=== PATIENT | male | born 1960 | race American Indian/Alaskan Native ===

== ENCOUNTER 2016-06-04 13:05 | Outpatient (CLI) | payer MEDICARE ==
[2016-06-04 13:55] LABS: Blood Urea Nitrogen 15 mg/dL (9-20)
[2016-06-04] MEDS ORDERED: NACL ONE (14:44)
--- NOTE | 2016-06-04 15:12 | Cat Scan Report ---
CTA CHEST: History: Pulmonary embolism. Technique: Helical CT following IV contrast. Pulmonary embolus protocol. Sagittal and coronal reformatted images. Rotational MIP images. Findings: Contrast bolus is satisfactory. Extensive bilateral pulmonary emboli have nearly resolved since 03/21/16. There appears to be minimal residual thrombus remaining a third order branch leading to the anterior segment of the left lower lobe. Greater than 90% of the thrombus seen on the previous exam has resolved. The thyroid gland, tracheobronchial tree, esophagus, heart, pericardium, mediastinal vessels, lung luna and bony thorax are unremarkable. Impression: Near complete resolution of the bilateral pulmonary emboli since 03/21/16. There is minimal residual thrombus in a distal branch leading to the anterior segment of the left lower lobe. No new acute process.
== END 2016-06-04 13:06 | disposition home or self-care (01) ==
LOC: CT 13:05
PROVIDERS: ATTEND Specialist
DX: I26.09 Other pulmonary embolism with acute cor pulmonale (principal)
CPT/HCPCS: 36415; 71275; 82565; 84520; Q9967

== ENCOUNTER 2017-07-30 19:28 | Emergency (ER) | payer MEDICARE ==
[2017-07-30 19:44] VITALS: BP 139/93
== END 2017-07-30 20:07 | disposition left against medical advice (07) ==
LOC: ED 19:28
DX: K08.89 Other specified disorders of teeth and supporting structures (principal); Z53.21 Procedure and treatment not carried out due to patient leaving prior to being seen by health care provider

== ENCOUNTER 2018-06-01 01:50 | Inpatient (IN) | payer MEDICARE ==
[2018-06-01 03:36] LABS: Hematocrit 39.2 % (35.5-45.6); Hemoglobin 13.1 gm/dl (11.8-15.2); Mean Corpuscular HGB Conc 33 % (32-34); Mean Corpuscular Volume 106 fl (84-94); Platelet Count 231 K/mm3 (140-440); Red Blood Count 3.71 M/mm3 (3.65-5.03); Red Cell Distribution Width 14.1 % (13.2-15.2)
[2018-06-01 03:37] LABS: BUN/Creatinine Ratio 18; Blood Urea Nitrogen 16 mg/dL (9-20); Calcium 8.5 mg/dL (8.4-10.2); Hemolysis Index 5
--- NOTE | 2018-06-01 04:06 | Cat Scan Report ---
FINAL REPORT PROCEDURE: CT HEAD/BRAIN WO CON TECHNIQUE: Computerized tomography of the head was performed without contrast material. HISTORY: Lethargic COMPARISON: 03/21/2016 FINDINGS: Skull and scalp: Normal. Paranasal sinuses: Normal. Ventricles and subarachnoid spaces: Normal. Cerebrum: No evidence of hemorrhage, acute infarction or mass. There has been infarction in the right occipital lobe. This has not changed. Cerebellum and brainstem: No evidence of hemorrhage, acute infarction or mass. Vasculature: Normal. Comments: None. IMPRESSION: There is no evidence of an acute intracranial process. 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
--- NOTE | 2018-06-01 04:20 | XRay Report ---
FINAL REPORT PROCEDURE: XR CHEST ROUTINE 2V TECHNIQUE: PA and lateral chest radiographs were obtained. CPT 74484 HISTORY: lethargic c/o cough with EMS COMPARISON: 03/21/2016 FINDINGS: Heart: Normal. Mediastinum/Vessels: Normal. Lungs/Pleural space: Normal. Bony thorax: No acute osseous abnormality. Other: IMPRESSION: No evidence of an acute cardiopulmonary process.
[2018-06-01 04:33] LABS: INR 1.02 (0.87-1.13)
[2018-06-01 04:34] LABS: Partial Thromboplastin Time 21.7 Sec. (24.2-36.6)
--- NOTE | 2018-06-01 06:20 | Emergency Department Report ---
ED Altered Mental Status HPI - General Chief Complaint: Altered Mental Status Stated Complaint: COUGH Time Seen by Provider: 06/01/18 06:19 Source: patient, EMS Mode of arrival: Wheelchair Limitations: Physical Limitation - History of Present Illness Initial Comments: 7-year-old male was brought to this facility plating of cough. He was lethargic in triage. He had a Accu-Chek. He reported poor by mouth intake. He did not mention his acute as well as chronic cocaine abuse. However his mother did verify that when she arrives later. Did not really have any specific complaint. However he was lethargic and at times slightly somnolent. He was able to awaken and follow commands. He was oriented. I suspect patient has chronic lung disease. He does have a history of previous pulmonary embolism and stroke. Recent admission providers following information: Hospital course: 55 YO Male admitted for Chest pain, Bilateral Pulmonary embolus, and Acute Respiratory Failure. Pt treated with chest pain protocol, admitted to telemetry. serial cardiac enzymes, ekg, and stress test were unremarkable for acute ischemia. Pt started on therapeutic anticoagulation. Pt treated with supplemental oxygen, nebulizer therapy, and supportive care. Pt symptoms resolved with therapy and pt weaned off supplemental oxygen. PT hospital course complicated by slurred speech, pt treated IAW stroke protocol, and found to have acute stroke. Pt treated with anti platelet therapy, and statin therapy. Pt medically optimized. Pt evaluated prior to discharge but no significant new physical exam findings since admission. Pt discharged home and instructed to f/u pcp 1wk. 34 minutes dedicated to patient discharge and education. Pt counseled regarding medication compliance to reduce risk of stroke. Disposition: DISCHARGED TO HOME OR SELFCARE - Discharge Diagnoses (1) Bilateral pulmonary embolism Status: Acute (2) Acute respiratory failure with hypoxia Status: Acute (3) Angina at rest Status: Acute (4) Elevated troponin I level Status: Acute (5) Nicotine dependence Status: Acute (6) DVT prophylaxis Status: Acute - Related Data Home Medications Medication Instructions Recorded Confirmed Last Taken Cetirizine HCl 10 mg PO DAILY 01/29/18 01/29/18 Unknown Previous Rx's Medication Instructions Recorded Last Taken Type Apixaban [Eliquis] 5 mg PO BID #60 tablet 03/24/16 01/27/18 Rx Simvastatin (Nf) [Zocor TAB] 20 mg PO QHS #30 tablet 03/24/16 Unknown Rx Tamsulosin [Flomax] 0.4 mg PO QDAY #20 cap 04/03/16 Unknown Rx Allergies Allergy/AdvReac Type Severity Reaction Status Date / Time No Known Allergies Allergy Verified 01/06/14 14:00 ED Review of Systems ROS: Stated complaint: COUGH Other details as noted in HPI Constitutional: weakness. denies: chills, fever Eyes: denies: eye pain, eye discharge, vision change ENT: denies: ear pain, throat pain Respiratory: cough. denies: shortness of breath, wheezing Cardiovascular: denies: chest pain, palpitations Endocrine: no symptoms reported Gastrointestinal: denies: abdominal pain, nausea, diarrhea Genitourinary: denies: urgency, dysuria Musculoskeletal: denies: back pain, joint swelling, arthralgia Skin: denies: rash, lesions Neurological: denies: headache, weakness, paresthesias Psychiatric: denies: anxiety, depression Hematological/Lymphatic: denies: easy bleeding, easy bruising ED Past Medical Hx - Past Medical History Previous Medical History?: Yes Hx CVA: Yes (02/2016 L MCA on MRI, left side weak) Hx Diabetes: No Hx Pulmonary Embolism: Yes Hx Asthma: No Additional medical history: elevated cholesterol - Social History Smoking Status: Current Some Day Smoker - Medications Home Medications: Home Medications Medication Instructions Recorded Confirmed Last Taken Type Apixaban [Eliquis] 5 mg PO BID #60 tablet 03/24/16 01/29/18 01/27/18 Rx Simvastatin (Nf) [Zocor TAB] 20 mg PO QHS #30 tablet 03/24/16 01/29/18 Unknown Rx Tamsulosin [Flomax] 0.4 mg PO QDAY #20 cap 04/03/16 01/29/18 Unknown Rx Cetirizine HCl 10 mg PO DAILY 01/29/18 01/29/18 Unknown History ED Physical Exam - General Limitations: Altered Mental Status (lethargic) General appearance: in no apparent distress, lethargic - Head Head exam: Present: atraumatic, normocephalic - Eye Eye exam: Present: normal appearance. Absent: scleral icterus - ENT ENT exam: Present: mucous membranes moist - Neck Neck exam: Present: normal inspection. Absent: tenderness, meningismus - Respiratory Respiratory exam: Present: normal lung sounds bilaterally. Absent: respiratory distress - Cardiovascular Cardiovascular Exam: Present: regular rate, normal rhythm. Absent: systolic murmur, diastolic murmur, rubs, gallop - GI/Abdominal GI/Abdominal exam: Present: soft, normal bowel sounds. Absent: distended, tenderness, guarding, rebound, rigid - Rectal Rectal exam: Present: deferred - Extremities Exam Extremities exam: Present: normal inspection - Back Exam Back exam: Present: normal inspection - Neurological Exam Neurological exam: Present: alert, altered (lethargic but oriented), normal gait (patient is able to ambulate), motor sensory deficit (difficult to fully examine but the patient does not have obvious drift). Absent: CN II-XII intact (perhaps some slight facial asymmetry but no gross paresis) - Psychiatric Psychiatric exam: Present: normal mood, flat affect - Skin Skin exam: Present: warm, dry, intact, normal color. Absent: rash - Assessment Assessment Interval: Baseline - Level of Consciousness 1a. Level of Consciousness: alert/keenly responsive - LOC Questions 1b. LOC Questions: answers both correctly - LOC Command 1c. LOC Commands: performs tasks correctly - Best Gaze 2. Best Gaze: normal - Visual 3. Visual: no visual loss - Facial Palsy 4. Facial Palsy: normal symmetrical movement - Motor Arm 5b. Motor Arm Right: no drift 5a. Motor Arm Left: no drift - Motor Leg 6b. Motor Leg Right: no drift 6a. Motor Leg Left: no drift - Limb Ataxia 7. Limb Ataxia: absent - Sensory 8. Sensory: normal - Best Language 9. Best Language: no aphasia - Dysarthria 10. Dysarthria: normal - Extinction and Inattention 11. Extinction/Inattention: no abnormality - Scoring Total Score: 0 Stroke Severity: No Stroke Symptoms ED Course Vital Signs 06/01/18 06/01/18 06/01/18 01:59 02:50 03:35 Temperature 99.3 F 99.3 F Pulse Rate 79 79 86 Pulse Rate [ Anterior Bilateral Throughout] Respiratory 18 18 16 Rate Respiratory Rate [Anterior Bilateral Throughout] Blood Pressure 138/77 138/77 O2 Sat by Pulse 91 96 Oximetry 06/01/18 06/01/18 06/01/18 06:11 06:30 07:00 Temperature Pulse Rate 77 74 75 Pulse Rate [ Anterior Bilateral Throughout] Respiratory 8 L 16 15 Rate Respiratory Rate [Anterior Bilateral Throughout] Blood Pressure 128/77 134/75 135/81 O2 Sat by Pulse 93 96 Oximetry 06/01/18 06/01/18 10:15 10:25 Temperature Pulse Rate Pulse Rate [ 72 75 Anterior Bilateral Throughout] Respiratory Rate Respiratory 17 16 Rate [Anterior Bilateral Throughout] Blood Pressure O2 Sat by Pulse Oximetry - Reevaluation(s) Reevaluation #1: Have reexamined this patient several times. He is persistently lethargic. He did go to the bathroom without assistance. He stands up with his eyes closed. He can open his eyes. He is really too lethargic to go home. I discussed this with Dr. Brock. He will be treated for respiratory infection. His PO2 was in the 60s. He received a Neb improvement of his PO2. He will be given aspirin. I can't exclude fully a another cerebral event. He certainly could have a cocaine washout syndrome as well. He will have further workup by the hospital staff for his persistent lethargy. Do not think he needs a spinal tap or any acute additional imaging at this time. 06/01/18 11:57 - Lab Data Result diagrams: 06/01/18 03:08 06/01/18 03:08 Lab Results 06/01/18 06/01/18 06/01/18 Range/Units 02:53 03:08 03:08 WBC 4.1 L (4.5-11.0) K/mm3 RBC 3.71 (3.65-5.03) M/mm3 Hgb 13.1 (11.8-15.2) gm/dl Hct 39.2 (35.5-45.6) % MCV 106 H (84-94) fl MCH 35 H (28-32) pg MCHC 33 (32-34) % RDW 14.1 (13.2-15.2) % Plt Count 231 (140-440) K/mm3 PT (12.2-14.9) Sec. INR (0.87-1.13) APTT (24.2-36.6) Sec. D-Dimer (0-234) ng/mlDDU POC ABG pH (7.35-7.45) POC ABG pCO2 (35-45) POC ABG pO2 (80-105) POC ABG HCO3 POC ABG Total CO2 POC ABG O2 Sat POC ABG Base Excess FiO2 % Sodium 136 L (137-145) mmol/L Potassium 4.0 (3.6-5.0) mmol/L Chloride 100.5 (98-107) mmol/L Carbon Dioxide 26 (22-30) mmol/L Anion Gap 14 mmol/L BUN 16 (9-20) mg/dL Creatinine 0.9 (0.8-1.5) mg/dL Estimated GFR > 60 ml/min BUN/Creatinine Ratio 18 % Glucose 112 H (75-100) mg/dL POC Glucose 115 H (70-105) Calcium 8.5 (8.4-10.2) mg/dL Magnesium (1.7-2.3) mg/dL Total Bilirubin (0.1-1.2) mg/dL Direct Bilirubin (0-0.2) mg/dL Indirect Bilirubin mg/dL AST (5-40) units/L ALT (7-56) units/L Alkaline Phosphatase (35-129) units/L Ammonia (25-60) umol/L Total Creatine Kinase (55-170) units/L CK-MB (CK-2) (0.0-4.0) ng/mL CK-MB (CK-2) Rel Index (0-4) Troponin T (0.00-0.029) ng/mL NT-Pro-B Natriuret Pep (0-900) pg/mL Total Protein (6.3-8.2) g/dL Albumin (3.9-5) g/dL Albumin/Globulin Ratio % Urine Color (Yellow) Urine Turbidity (Clear) Urine pH (5.0-7.0) Ur Specific [place] (1.003-1.030) Urine Protein (Negative) mg/dL Urine Glucose (UA) (Negative) mg/dL Urine Ketones (Negative) mg/dL Urine Blood (Negative) Urine Nitrite (Negative) Urine Bilirubin (Negative) Urine Urobilinogen (<2.0) mg/dL Ur Leukocyte Esterase (Negative) Urine WBC (Auto) (0.0-6.0) /HPF Urine RBC (Auto) (0.0-6.0) /HPF Urine Opiates Screen Urine Methadone Screen Ur Barbiturates Screen Ur Phencyclidine Scrn Ur Amphetamines Screen U Benzodiazepines Scrn Urine Cocaine Screen U Marijuana (THC) Screen Drugs of Abuse Note 06/01/18 06/01/18 06/01/18 Range/Units 04:12 07:07 07:16 WBC (4.5-11.0) K/mm3 RBC (3.65-5.03) M/mm3 Hgb (11.8-15.2) gm/dl Hct (35.5-45.6) % MCV (84-94) fl MCH (28-32) pg MCHC (32-34) % RDW (13.2-15.2) % Plt Count (140-440) K/mm3 PT 13.8 14.0 (12.2-14.9) Sec. INR 1.02 1.04 (0.87-1.13) APTT 21.7 L 24.2 (24.2-36.6) Sec. D-Dimer (0-234) ng/mlDDU POC ABG pH (7.35-7.45) POC ABG pCO2 (35-45) POC ABG pO2 (80-105) POC ABG HCO3 POC ABG Total CO2 POC ABG O2 Sat POC ABG Base Excess FiO2 % Sodium (137-145) mmol/L Potassium (3.6-5.0) mmol/L Chloride (98-107) mmol/L Carbon Dioxide (22-30) mmol/L Anion Gap mmol/L BUN (9-20) mg/dL Creatinine (0.8-1.5) mg/dL Estimated GFR ml/min BUN/Creatinine Ratio % Glucose (75-100) mg/dL POC Glucose (70-105) Calcium (8.4-10.2) mg/dL Magnesium (1.7-2.3) mg/dL Total Bilirubin (0.1-1.2) mg/dL Direct Bilirubin (0-0.2) mg/dL Indirect Bilirubin mg/dL AST (5-40) units/L ALT (7-56) units/L Alkaline Phosphatase (35-129) units/L Ammonia 44.0 (25-60) umol/L Total Creatine Kinase (55-170) units/L CK-MB (CK-2) (0.0-4.0) ng/mL CK-MB (CK-2) Rel Index (0-4) Troponin T (0.00-0.029) ng/mL NT-Pro-B Natriuret Pep (0-900) pg/mL Total Protein (6.3-8.2) g/dL Albumin (3.9-5) g/dL Albumin/Globulin Ratio % Urine Color (Yellow) Urine Turbidity (Clear) Urine pH (5.0-7.0) Ur Specific [place] (1.003-1.030) Urine Protein (Negative) mg/dL Urine Glucose (UA) (Negative) mg/dL Urine Ketones (Negative) mg/dL Urine Blood (Negative) Urine Nitrite (Negative) Urine Bilirubin (Negative) Urine Urobilinogen (<2.0) mg/dL Ur Leukocyte Esterase (Negative) Urine WBC (Auto) (0.0-6.0) /HPF Urine RBC (Auto) (0.0-6.0) /HPF Urine Opiates Screen Urine Methadone Screen Ur Barbiturates Screen Ur Phencyclidine Scrn Ur Amphetamines Screen U Benzodiazepines Scrn Urine Cocaine Screen U Marijuana (THC) Screen Drugs of Abuse Note 06/01/18 06/01/18 06/01/18 Range/Units 07:16 07:16 07:18 WBC (4.5-11.0) K/mm3 RBC (3.65-5.03) M/mm3 Hgb (11.8-15.2) gm/dl Hct (35.5-45.6) % MCV (84-94) fl MCH (28-32) pg MCHC (32-34) % RDW (13.2-15.2) % Plt Count (140-440) K/mm3 PT (12.2-14.9) Sec. INR (0.87-1.13) APTT (24.2-36.6) Sec. D-Dimer 219.09 (0-234) ng/mlDDU POC ABG pH 7.399 (7.35-7.45) POC ABG pCO2 37.3 (35-45) POC ABG pO2 61 L (80-105) POC ABG HCO3 23.0 POC ABG Total CO2 24 POC ABG O2 Sat 91 POC ABG Base Excess -2 FiO2 21 % Sodium (137-145) mmol/L Potassium (3.6-5.0) mmol/L Chloride (98-107) mmol/L Carbon Dioxide (22-30) mmol/L Anion Gap mmol/L BUN (9-20) mg/dL Creatinine (0.8-1.5) mg/dL Estimated GFR ml/min BUN/Creatinine Ratio % Glucose (75-100) mg/dL POC Glucose (70-105) Calcium (8.4-10.2) mg/dL Magnesium 2.00 (1.7-2.3) mg/dL Total Bilirubin 1.10 (0.1-1.2) mg/dL Direct Bilirubin 0.2 (0-0.2) mg/dL Indirect Bilirubin 0.9 mg/dL AST 17 (5-40) units/L ALT 11 (7-56) units/L Alkaline Phosphatase 102 (35-129) units/L Ammonia (25-60) umol/L Total Creatine Kinase 195 H (55-170) units/L CK-MB (CK-2) 3.1 (0.0-4.0) ng/mL CK-MB (CK-2) Rel Index 1.5 (0-4) Troponin T < 0.010 (0.00-0.029) ng/mL NT-Pro-B Natriuret Pep 70.59 (0-900) pg/mL Total Protein 7.2 (6.3-8.2) g/dL Albumin 3.7 L (3.9-5) g/dL Albumin/Globulin Ratio 1.1 % Urine Color (Yellow) Urine Turbidity (Clear) Urine pH (5.0-7.0) Ur Specific [place] (1.003-1.030) Urine Protein (Negative) mg/dL Urine Glucose (UA) (Negative) mg/dL Urine Ketones (Negative) mg/dL Urine Blood (Negative) Urine Nitrite (Negative) Urine Bilirubin (Negative) Urine Urobilinogen (<2.0) mg/dL Ur Leukocyte Esterase (Negative) Urine WBC (Auto) (0.0-6.0) /HPF Urine RBC (Auto) (0.0-6.0) /HPF Urine Opiates Screen Urine Methadone Screen Ur Barbiturates Screen Ur Phencyclidine Scrn Ur Amphetamines Screen U Benzodiazepines Scrn Urine Cocaine Screen U Marijuana (THC) Screen Drugs of Abuse Note 06/01/18 06/01/18 Range/Units 07:36 07:36 WBC (4.5-11.0) K/mm3 RBC (3.65-5.03) M/mm3 Hgb (11.8-15.2) gm/dl Hct (35.5-45.6) % MCV (84-94) fl MCH (28-32) pg MCHC (32-34) % RDW (13.2-15.2) % Plt Count (140-440) K/mm3 PT (12.2-14.9) Sec. INR (0.87-1.13) APTT (24.2-36.6) Sec. D-Dimer (0-234) ng/mlDDU POC ABG pH (7.35-7.45) POC ABG pCO2 (35-45) POC ABG pO2 (80-105) POC ABG HCO3 POC ABG Total CO2 POC ABG O2 Sat POC ABG Base Excess FiO2 % Sodium (137-145) mmol/L Potassium (3.6-5.0) mmol/L Chloride (98-107) mmol/L Carbon Dioxide (22-30) mmol/L Anion Gap mmol/L BUN (9-20) mg/dL Creatinine (0.8-1.5) mg/dL Estimated GFR ml/min BUN/Creatinine Ratio % Glucose (75-100) mg/dL POC Glucose (70-105) Calcium (8.4-10.2) mg/dL Magnesium (1.7-2.3) mg/dL Total Bilirubin (0.1-1.2) mg/dL Direct Bilirubin (0-0.2) mg/dL Indirect Bilirubin mg/dL AST (5-40) units/L ALT (7-56) units/L Alkaline Phosphatase (35-129) units/L Ammonia (25-60) umol/L Total Creatine Kinase (55-170) units/L CK-MB (CK-2) (0.0-4.0) ng/mL CK-MB (CK-2) Rel Index (0-4) Troponin T (0.00-0.029) ng/mL NT-Pro-B Natriuret Pep (0-900) pg/mL Total Protein (6.3-8.2) g/dL Albumin (3.9-5) g/dL Albumin/Globulin Ratio % Urine Color Straw (Yellow) Urine Turbidity Clear (Clear) Urine pH 6.0 (5.0-7.0) Ur Specific [place] 1.005 (1.003-1.030) Urine Protein <15 mg/dl (Negative) mg/dL Urine Glucose (UA) Neg (Negative) mg/dL Urine Ketones Neg (Negative) mg/dL Urine Blood Neg (Negative) Urine Nitrite Neg (Negative) Urine Bilirubin Neg (Negative) Urine Urobilinogen 2.0 (<2.0) mg/dL Ur Leukocyte Esterase Neg (Negative) Urine WBC (Auto) 1.0 (0.0-6.0) /HPF Urine RBC (Auto) 1.0 (0.0-6.0) /HPF Urine Opiates Screen Presumptive negative Urine Methadone Screen Presumptive negative Ur Barbiturates Screen Presumptive negative Ur Phencyclidine Scrn Presumptive negative Ur Amphetamines Screen Presumptive negative U Benzodiazepines Scrn Presumptive negative Urine Cocaine Screen Presumptive positive U Marijuana (THC) Screen Presumptive negative Drugs of Abuse Note Disclamer Laboratory Results - last 24 hr 06/01/18 06/01/18 06/01/18 02:53 03:08 03:08 WBC 4.1 L RBC 3.71 Hgb 13.1 Hct 39.2 MCV 106 H MCH 35 H MCHC 33 RDW 14.1 Plt Count 231 PT INR APTT Sodium 136 L Potassium 4.0 Chloride 100.5 Carbon Dioxide 26 Anion Gap 14 BUN 16 Creatinine 0.9 Estimated GFR > 60 BUN/Creatinine Ratio 18 Glucose 112 H POC Glucose 115 H Calcium 8.5 06/01/18 04:12 WBC RBC Hgb Hct MCV MCH MCHC RDW Plt Count PT 13.8 INR 1.02 APTT 21.7 L Sodium Potassium Chloride Carbon Dioxide Anion Gap BUN Creatinine Estimated GFR BUN/Creatinine Ratio Glucose POC Glucose Calcium - Radiology Data Radiology results: report reviewed Critical care attestation.: If time is entered above; I have spent that time in minutes in the direct care of this critically ill patient, excluding procedure time. ED Disposition Clinical Impression: Acute respiratory infection, Cocaine abuse Altered mental status Qualifiers: Altered mental status type: somnolence Qualified Code(s): R40.0 - Somnolence Disposition: DC-09 OP ADMIT IP TO THIS HOSP Is pt being admited?: Yes Does the pt Need Aspirin: Yes Condition: Stable Referrals: SALONI STEWART MD [Primary Care Provider] - 3-5 Days Time of Disposition: 11:54
[2018-06-01] MEDS ORDERED: NACL 0.9% 1000 ML 1,000 ML IV ONE (06:48)
[2018-06-01 07:40] LABS: INR 1.04 (0.87-1.13)
[2018-06-01 07:41] LABS: Partial Thromboplastin Time 24.2 Sec. (24.2-36.6)
[2018-06-01 07:51] LABS: Creatine Kinase MB 3.1 ng/mL (0.0-4.0)
[2018-06-01 07:53] LABS: Alanine Aminotransferase 11 units/L (7-56); Albumin 3.7 g/dL (3.9-5); Bilirubin,Direct 0.2 mg/dL (0-0.2)
[2018-06-01 07:56] LABS: Bilirubin,Urine NEG (Negative); Blood,Urine NEG (Negative); Color,Urine Straw (Yellow); Protein,Urine <15 mg/dL mg/dL (Negative)
[2018-06-01 08:02] LABS: Amphetamine Screen,Urine PRESUMPTIVE NEGATIVE; Benzodiazepines Screen,Urine PRESUMPTIVE NEGATIVE; Cannabinoid Screen,Urine PRESUMPTIVE NEGATIVE; Methadone Screen,Urine PRESUMPTIVE NEGATIVE; Opiate Screen,Urine PRESUMPTIVE NEGATIVE
[2018-06-01 08:14] LABS: Cocaine Screen,Urine PRESUMPTIVE POSITIVE
[2018-06-01] MEDS ORDERED: DUONEB *Not for PRN Use IH ONE ×2 (10:05→10:19)
[2018-06-01] MEDS ORDERED: LEVAQUIN 750MG/150ML 750 MG/150 ML BAG IV ONE ×2 (11:58→13:05)
[2018-06-01] MEDS ORDERED: ASPIRIN PO ONE (11:59)
[2018-06-01] MEDS ORDERED: ASPIRIN ONE (13:05)
[2018-06-01] MEDS ORDERED: TYLENOL PO PRN (15:06)
[2018-06-01] MEDS: ROBITUSSIN PO PRN (22:55)
--- NOTE | 2018-06-02 01:27 | Event Note ---
Date: 06/01/18 See H/p in reports AMS Cocaine use
[2018-06-02] MEDS ORDERED: ATIVAN IV PRN ×3 (01:36)
[2018-06-02] MEDS ORDERED: DUONEB *Not for PRN Use IH (01:37)
--- NOTE | 2018-06-02 01:52 | History and Physical Report ---
CHIEF COMPLAINT: 1. Cough. 2. Altered sensorium. HISTORY OF PRESENT ILLNESS: A 57-year-old -[place] male with history of cerebrovascular accident with some residual left-sided weakness, diabetes, pulmonary embolism and hyperlipidemia, comes in for cough productive of mucoid sputum and low grade fever, also altered sensorium. The patient has been using cocaine on a regular basis. No shortness of breath. No chest pain. The patient was recently admitted for bilateral pulmonary embolism and acute respiratory failure, was the discharged in 10/2016. PAST MEDICAL HISTORY: As mentioned, significant for cerebrovascular accident and some slight left-sided weakness, pulmonary embolism, and hyperlipidemia and BPH also. SOCIAL HISTORY: Smokes half a pack to a pack a day. SURGICAL HISTORY: Not available. FAMILY HISTORY: Hypertension. REVIEW OF SYSTEMS: Significant for cough and lethargy. PHYSICAL EXAMINATION: GENERAL: Elderly male, cooperative during examination. VITAL SIGNS: Temperature is 98.0, pulse is 71, respirations are 18, sats are 94%, blood pressure 133/80. HEENT: Unremarkable. Pupils equal and reactive. NECK: Supple, no lymphadenopathy, no thyromegaly. LUNGS: Scattered rhonchi bilaterally. CARDIOVASCULAR: S1, S2 heard. No gallop, no murmur, no rub. Apical impulse in left fifth intercostal space and midclavicular line. ABDOMEN: Soft and benign. No hepatosplenomegaly, no guarding, no rigidity. Hernial orifices are normal. EXTREMITIES: Good pedal pulses. No pedal edema. CENTRAL NERVOUS SYSTEM: Normal. Slight left residual weakness present. LABORATORY DATA: White count is 4100, hemoglobin 13.1 and hematocrit is 39.2, platelet count is 231,000. ABG significant for pH of 7.399, pCO2 of 37.3, pO2 of 61, borderline just above normal. Bicarbonate is 23 and O2 sats 91%. Electrolytes 136. BUN and creatinine are normal. Glucose is 112, slightly high. LFTs are normal. CK is 195, total albumin is 3.7. Drug screen is positive for cocaine. Also chest x-ray, no evidence of acute cardiopulmonary process. Head CT, no evidence of acute intracranial process. Chronic right occipital infarct. EKG shows sinus rhythm, heart rate of 80 per minute. ASSESSMENT AND PLAN: 1. Altered mental status, transient encephalopathy. IV fluids for now. 2. Cocaine use. CIWA protocol initiated. 3. Chronic obstructive pulmonary disease. Continue DuoNeb. 4. Acute bronchitis. IV antibiotics. 5. Deep venous thrombosis prophylaxis, Lovenox 40 mg subcutaneous daily. 6. Hyperlipidemia. Continue Zocor. 7. Benign prostatic hypertrophy. Continue Flomax 0.4 daily. In summary, the patient has mild encephalopathy, which is nearly resolved. Acute bronchitis. Residual cerebrovascular accident and chronic obstructive pulmonary disease and benign prostatic hypertrophy. JOB# [id number] VSM/NTS
[2018-06-02] MEDS ORDERED: PROVENTIL IH PRN (02:13)
[2018-06-02] MEDS ORDERED: DUONEB *Not for PRN Use IH SCH (09:45)
--- NOTE | 2018-06-02 09:49 | Progress Note ---
Assessment and Plan Assessment and plan: 57-year-old man with history of CVA with residual left-sided weakness, diabetes, history of PE in 2016, hyperlipidemia, ongoing cocaine abuse. He presented to the hospital with productive cough and low-grade fever Hospital course/plan CXR was neg, CT showed only old cva, no acute findings Patient was apparently lethargic on presentation, now resolved He has been counseled on cocaine and tobacco cessation Continue IV antibiotics, nebs and steroids. Optimize chronic medications Diagnoses Acute toxic encephalopathy Cocaine abuse tobacco abuse and dependence COPD Acute bronchitis Hyperlipidemia BPH History Interval history: Review of systems Constitutional: No fevers, no malaise, no joint pains CVS: No chest pain, no orthopnea, no dyspnea on exertion, no pedal edema GI: No abdominal pain, no diarrhea, no vomiting, no constipation Respiratory: Complaining of cough with mucoid sputum Hospitalist Physical - Physical exam Narrative exam: General.: Appears well, no distress, nontoxic HEENT: Moist mucous membranes, extraocular muscles intact, no lymphadenopathy Neck: supple Cardiac: S1-S2 heard Lungs: Rhonchorous breath sounds Abdomen soft nontender nondistended Extremities: no edema clubbing or cyanosis Skin: no rash or lesions Neurologic: no gross focal deficits Psych: calm, and cooperative - Constitutional Vitals: Temp Pulse Resp BP Pulse Ox 98.7 F 63 20 133/84 95 06/02/18 05:36 06/02/18 05:36 06/02/18 05:36 06/02/18 05:36 06/02/18 05:36 Results - Labs CBC & Chem 7: 06/01/18 03:08 06/01/18 03:08 Labs: Laboratory Last Values WBC 4.1 K/mm3 (4.5-11.0) L 06/01/18 03:08 RBC 3.71 M/mm3 (3.65-5.03) 06/01/18 03:08 Hgb 13.1 gm/dl (11.8-15.2) 06/01/18 03:08 Hct 39.2 % (35.5-45.6) 06/01/18 03:08 MCV 106 fl (84-94) H 06/01/18 03:08 MCH 35 pg (28-32) H 06/01/18 03:08 MCHC 33 % (32-34) 06/01/18 03:08 RDW 14.1 % (13.2-15.2) 06/01/18 03:08 Plt Count 231 K/mm3 (140-440) 06/01/18 03:08 PT 14.0 Sec. (12.2-14.9) 06/01/18 07:16 INR 1.04 (0.87-1.13) 06/01/18 07:16 APTT 24.2 Sec. (24.2-36.6) 06/01/18 07:16 D-Dimer 219.09 ng/mlDDU (0-234) 06/01/18 07:16 POC ABG pH 7.399 (7.35-7.45) 06/01/18 07:18 POC ABG pCO2 37.3 (35-45) 06/01/18 07:18 POC ABG pO2 61 (80-105) L 06/01/18 07:18 POC ABG HCO3 23.0 06/01/18 07:18 POC ABG Total CO2 24 06/01/18 07:18 POC ABG O2 Sat 91 06/01/18 07:18 POC ABG Base Excess -2 06/01/18 07:18 FiO2 21 % 06/01/18 07:18 Sodium 136 mmol/L (137-145) L 06/01/18 03:08 Potassium 4.0 mmol/L (3.6-5.0) 06/01/18 03:08 Chloride 100.5 mmol/L (98-107) 06/01/18 03:08 Carbon Dioxide 26 mmol/L (22-30) 06/01/18 03:08 Anion Gap 14 mmol/L 06/01/18 03:08 BUN 16 mg/dL (9-20) 06/01/18 03:08 Creatinine 0.9 mg/dL (0.8-1.5) 06/01/18 03:08 Estimated GFR > 60 ml/min 06/01/18 03:08 BUN/Creatinine Ratio 18 % 06/01/18 03:08 Glucose 112 mg/dL (75-100) H 06/01/18 03:08 POC Glucose 115 (70-105) H 06/01/18 02:53 Calcium 8.5 mg/dL (8.4-10.2) 06/01/18 03:08 Magnesium 2.00 mg/dL (1.7-2.3) 06/01/18 07:16 Total Bilirubin 1.10 mg/dL (0.1-1.2) 06/01/18 07:16 Direct Bilirubin 0.2 mg/dL (0-0.2) 06/01/18 07:16 Indirect Bilirubin 0.9 mg/dL 06/01/18 07:16 AST 17 units/L (5-40) 06/01/18 07:16 ALT 11 units/L (7-56) 06/01/18 07:16 Alkaline Phosphatase 102 units/L (35-129) 06/01/18 07:16 Ammonia 44.0 umol/L (25-60) 06/01/18 07:07 Total Creatine Kinase 195 units/L (55-170) H 06/01/18 07:16 CK-MB (CK-2) 3.1 ng/mL (0.0-4.0) 06/01/18 07:16 CK-MB (CK-2) Rel Index 1.5 (0-4) 06/01/18 07:16 Troponin T < 0.010 ng/mL (0.00-0.029) 06/01/18 07:16 NT-Pro-B Natriuret Pep 70.59 pg/mL (0-900) 06/01/18 07:16 Total Protein 7.2 g/dL (6.3-8.2) 06/01/18 07:16 Albumin 3.7 g/dL (3.9-5) L 06/01/18 07:16 Albumin/Globulin Ratio 1.1 % 06/01/18 07:16 Urine Color Straw (Yellow) 06/01/18 07:36 Urine Turbidity Clear (Clear) 06/01/18 07:36 Urine pH 6.0 (5.0-7.0) 06/01/18 07:36 Ur Specific [place] 1.005 (1.003-1.030) 06/01/18 07:36 Urine Protein <15 mg/dl mg/dL (Negative) 06/01/18 07:36 Urine Glucose (UA) Neg mg/dL (Negative) 06/01/18 07:36 Urine Ketones Neg mg/dL (Negative) 06/01/18 07:36 Urine Blood Neg (Negative) 06/01/18 07:36 Urine Nitrite Neg (Negative) 06/01/18 07:36 Urine Bilirubin Neg (Negative) 06/01/18 07:36 Urine Urobilinogen 2.0 mg/dL (<2.0) 06/01/18 07:36 Ur Leukocyte Esterase Neg (Negative) 06/01/18 07:36 Urine WBC (Auto) 1.0 /HPF (0.0-6.0) 06/01/18 07:36 Urine RBC (Auto) 1.0 /HPF (0.0-6.0) 06/01/18 07:36 Urine Opiates Screen Presumptive negative 06/01/18 07:36 Urine Methadone Screen Presumptive negative 06/01/18 07:36 Ur Barbiturates Screen Presumptive negative 06/01/18 07:36 Ur Phencyclidine Scrn Presumptive negative 06/01/18 07:36 Ur Amphetamines Screen Presumptive negative 06/01/18 07:36 U Benzodiazepines Scrn Presumptive negative 06/01/18 07:36 Urine Cocaine Screen Presumptive positive 06/01/18 07:36 U Marijuana (THC) Screen Presumptive negative 06/01/18 07:36 Drugs of Abuse Note Disclamer 06/01/18 07:36
[2018-06-02] MEDS: NACL 0.9% 1000 ML 1,000 ML IV SCH (10:11)
[2018-06-02] MEDS: LEVAQUIN 750MG/150ML 750 MG/150 ML BAG IV SCH (10:12)
[2018-06-02] MEDS: FLOMAX PO SCH (10:29)
[2018-06-02] MEDS: SOLU-Medrol IV SCH ×3 (10:33→21:50)
[2018-06-02] MEDS: TESSALON PERLES PO SCH ×2 (15:44→21:49)
[2018-06-02] MEDS: ROBITUSSIN PO PRN (21:50)
[2018-06-03] MEDS: NACL 0.9% 1000 ML 1,000 ML IV SCH (02:18)
[2018-06-03] MEDS: SOLU-Medrol IV SCH (05:12)
[2018-06-03] MEDS: TESSALON PERLES PO SCH ×2 (05:12→15:52)
[2018-06-03 06:07] VITALS: BP 141/79
--- NOTE | 2018-06-03 10:56 | Discharge Summary ---
Providers - Providers Date of Admission: 06/01/18 11:59 Attending physician: LAVERN CEE MD Primary care physician: SALONI STEWART Hospitalization Condition: Stable Hospital course: 57-year-old man with history of CVA with residual left-sided weakness, diabetes, history of PE in 2016, hyperlipidemia, ongoing cocaine abuse. He presented to the hospital with productive cough and low-grade fever. Chest imaging was negative for pneumonia. The patient was diagnosed with acute bronchitis, pneumonitis. He probably has some toxicity from cocaine inhalation and tobacco smoking. The patient had ongoing tobacco use and went on a 3 day cocaine binge prior to admission to the hospital. He received steroids and nebulizers and cough medicines. He clinically improves and is being discharged on a steroid taper as well as an inhaler. He has been counseled on abstinence of cocaine and tobacco. He was offered nicotine patch but refused. Diagnoses Acute toxic encephalopathy Pneumonitis due to inhaled crack cocaine toxicity Cocaine abuse tobacco abuse and dependence COPD Acute bronchitis Hyperlipidemia BPH Disposition: DC- TO HOME OR SELFCARE Time spent for discharge: 33 minutes Core Measure Documentation - Palliative Care Palliative Care/ Comfort Measures: Not Applicable - Core Measures Any of the following diagnoses?: none Exam - Constitutional Vitals: Temp Pulse Resp BP Pulse Ox 97.6 F 56 L 20 141/79 95 06/03/18 06:05 06/03/18 06:05 06/03/18 06:05 06/03/18 06:05 06/03/18 06:05 General appearance: Present: no acute distress, well-nourished - EENT Eyes: Present: PERRL ENT: hearing intact, clear oral mucosa - Neck Neck: Present: supple, normal ROM - Respiratory Respiratory effort: normal Respiratory: bilateral: CTA - Cardiovascular Heart Sounds: Present: S1 & S2. Absent: rub, click - Extremities Extremities: pulses symmetrical, No edema Peripheral Pulses: within normal limits - Abdominal General gastrointestinal: Present: soft, non-tender, non-distended, normal bowel sounds Male genitourinary: Present: normal - Integumentary Integumentary: Present: clear, warm, dry - Musculoskeletal Musculoskeletal: gait normal, strength equal bilaterally - Psychiatric Psychiatric: appropriate mood/affect, intact judgment & insight - Neurologic Neurologic: CNII-XII intact, moves all extremities Plan Follow up with: SALONI STEWART MD [Primary Care Provider] - 3-5 Days Prescriptions: ALBUTEROL Inhaler(NF) [VENTOLIN Inhaler(NF)] 1 puff IH Q4H PRN #1 inha PRN Reason: Shortness Of Breath Benzonatate [Tessalon Perles] 100 mg PO Q8HR #30 capsule guaiFENesin [Robitussin] 200 mg PO Q6H PRN #120 ml PRN Reason: Cough Prednisone [predniSONE 5 mg (6-Day Pack, 21 Tabs)] 5 mg PO .TAPER #1 tab.ds.pk Tamsulosin [Flomax] 0.4 mg PO QDAY #30 capsule
[2018-06-03] MEDS: FLOMAX PO SCH (10:57)
[2018-06-03] MEDS: LEVAQUIN 750MG/150ML 750 MG/150 ML BAG IV SCH (10:58)
== END 2018-06-03 16:59 | disposition home or self-care (01) | DRG 205 ==
LOC: ED 01:50 → 3A 11:59
PROVIDERS: ADMIT Internal Medicine; ATTEND Internal Medicine
PROC: 4A033R1 Measurement of Arterial Saturation, Peripheral, Percutaneous Approach (ICD-10-PCS; principal; 2018-06-01)
DX: J70.4 Drug-induced interstitial lung disorders, unspecified (principal); G92 Toxic encephalopathy; I69.354 Hemiplegia and hemiparesis following cerebral infarction affecting left non-dominant side; J44.0 Chronic obstructive pulmonary disease with (acute) lower respiratory infection; F14.10 Cocaine abuse, uncomplicated; J20.9 Acute bronchitis, unspecified; T40.5X5A Adverse effect of cocaine, initial encounter; E78.5 Hyperlipidemia, unspecified; F17.210 Nicotine dependence, cigarettes, uncomplicated; N40.0 Benign prostatic hyperplasia without lower urinary tract symptoms; E11.9 Type 2 diabetes mellitus without complications; Z86.711 Personal history of pulmonary embolism; Z79.01 Long term (current) use of anticoagulants; Z82.49 Family history of ischemic heart disease and other diseases of the circulatory system; Z71.6 Tobacco abuse counseling; Z79.84 Long term (current) use of oral hypoglycemic drugs; Z71.51 Drug abuse counseling and surveillance of drug abuser; Y92.098 Other place in other non-institutional residence as the place of occurrence of the external cause
CPT/HCPCS: 36415; 70450; 71046; 80048; 80076; 80307; 81001; 82140; 82550; 82553; 82803; 82962; 83735; 83880; 84484; 85027; 85379; 85610; 85730; 93005; 93010; 94640; 96361; 96365; 99406; G0378; A9270-GY; J1956; J2920; J7030

== ENCOUNTER 2018-09-30 22:26 | Inpatient (IN) | payer MEDICARE ==
[2018-09-30 23:09] LABS: Hematocrit 41.3 % (35.5-45.6); Hemoglobin 14.3 gm/dl (11.8-15.2); Mean Corpuscular HGB Conc 35 % (32-34); Mean Corpuscular Volume 106 fl (84-94); Platelet Count 248 K/mm3 (140-440); Red Cell Distribution Width 14.6 % (13.2-15.2)
[2018-09-30 23:25] LABS: Calcium 8.9 mg/dL (8.4-10.2); Hemolysis Index 14; INR 1.02 (0.87-1.13)
[2018-09-30 23:26] LABS: Partial Thromboplastin Time 28.1 Sec. (24.2-36.6)
[2018-10-01] MEDS ORDERED: LASIX IV ONE (00:02)
[2018-10-01] MEDS ORDERED: PROVENTIL IH ONE (00:02)
--- NOTE | 2018-10-01 00:03 | Emergency Department Report ---
ED General Adult HPI - General Chief complaint: Weakness Stated complaint: WEAKNESS Time Seen by Provider: 09/30/18 23:45 Source: patient, EMS (ems notes not available at time of chart dictation), RN notes reviewed, old records reviewed Mode of arrival: Wheelchair Limitations: Physical Limitation - History of Present Illness Initial comments: This is a 58-year-old gentleman. The patient is not known to this provider previously. His past medical history includes stroke, residual left-sided weakness, pulmonary embolism, intermittently compliant with anticoagulation, eliquis, and presumed COPD. His primary care doctor is DR Llamas The patient presents to the emergency room with 2 complaints. His first complaint is worsening left-sided weakness. This is present over the past 4 days. It is painless. It is constant. It does not radiate anywhere. There is no headache, neck pain, chest pain, abdominal pain, loss of vision. His next complaint is shortness of breath. It is worse over the past 4 days. Positive dry cough, positive lower extremity edema. Positive for poor compliance with systemic anticoagulation. He is making dry mucous. -: Gradual, days(s) Location: left, upper extremity, lower extremity Radiation: non-radiation Consistency: constant Improves with: none Worsens with: none - Related Data Previous Rx's Medication Instructions Recorded Last Taken Type ALBUTEROL Inhaler(NF) [VENTOLIN 1 puff IH Q4H PRN #1 inha 06/03/18 Unknown Rx Inhaler(NF)] Benzonatate [Tessalon Perles] 100 mg PO Q8HR #30 capsule 06/03/18 Unknown Rx Prednisone [predniSONE 5 mg (6-Day 5 mg PO .TAPER #1 tab.ds.pk 06/03/18 Unknown Rx Pack, 21 Tabs)] Tamsulosin [Flomax] 0.4 mg PO QDAY #30 capsule 06/03/18 Unknown Rx guaiFENesin [Robitussin] 200 mg PO Q6H PRN #120 ml 06/03/18 Unknown Rx Allergies Allergy/AdvReac Type Severity Reaction Status Date / Time No Known Allergies Allergy Verified 01/06/14 14:00 ED Review of Systems ROS: Stated complaint: WEAKNESS Other details as noted in HPI Constitutional: malaise, weakness Eyes: denies: eye discharge ENT: congestion Respiratory: cough, shortness of breath, SOB with exertion, SOB at rest Cardiovascular: edema. denies: chest pain Gastrointestinal: denies: abdominal pain, nausea, vomiting, diarrhea Genitourinary: denies: dysuria Musculoskeletal: arthralgia, myalgia Skin: denies: lesions Neurological: weakness, numbness. denies: headache ED Past Medical Hx - Past Medical History Previous Medical History?: Yes Hx Hypertension: Yes Hx CVA: Yes (02/2016 L MCA on MRI, left side weak) Hx Congestive Heart Failure: Yes Hx Diabetes: No Hx Pulmonary Embolism: Yes (CURRENTLY ON ELIQUIS) Hx Asthma: No Hx COPD: Yes (pt reports that he "thinks" he has COPD) Additional medical history: elevated cholesterol - Surgical History Past Surgical History?: No - Social History Smoking Status: Never Smoker Substance Use Type: None - Medications Home Medications: Home Medications Medication Instructions Recorded Confirmed Last Taken Type ALBUTEROL Inhaler(NF) [VENTOLIN 1 puff IH Q4H PRN #1 inha 06/03/18 10/01/18 Unknown Rx Inhaler(NF)] Benzonatate [Tessalon Perles] 100 mg PO Q8HR #30 capsule 06/03/18 10/01/18 Unknown Rx Prednisone [predniSONE 5 mg (6-Day 5 mg PO .TAPER #1 tab.ds.pk 06/03/18 10/01/18 Unknown Rx Pack, 21 Tabs)] Tamsulosin [Flomax] 0.4 mg PO QDAY #30 capsule 06/03/18 10/01/18 Unknown Rx guaiFENesin [Robitussin] 200 mg PO Q6H PRN #120 ml 06/03/18 10/01/18 Unknown Rx ED Physical Exam - General Limitations: Physical Limitation General appearance: alert, in no apparent distress - Head Head exam: Present: atraumatic, normocephalic - Eye Eye exam: Present: normal appearance, EOMI. Absent: nystagmus - ENT ENT exam: Present: normal exam, normal orophraynx, mucous membranes moist, n ormal external ear exam - Neck Neck exam: Present: normal inspection, full ROM. Absent: tenderness, meningismus - Respiratory Respiratory exam: Present: rhonchi. Absent: respiratory distress, wheezes, rales, chest wall tenderness, accessory muscle use, prolonged expiratory - Cardiovascular Cardiovascular Exam: Present: regular rate, normal rhythm, normal heart sounds. Absent: bradycardia, tachycardia, irregular rhythm, systolic murmur, diastolic murmur, rubs, gallop - GI/Abdominal GI/Abdominal exam: Present: soft. Absent: distended, tenderness, guarding, rebound, rigid, pulsatile mass - Rectal Rectal exam: Present: deferred - Extremities Exam Extremities exam: Present: normal inspection, full ROM, pedal edema, other (2+ pulses noted in the bilateral upper, lower extremities. Compartments soft. No long bony tenderness. The pelvis is stable.). Absent: calf tenderness - Back Exam Back exam: Present: normal inspection, full ROM. Absent: tenderness, CVA tenderness (R), CVA tenderness (L), paraspinal tenderness, vertebral tenderness - Neurological Exam Neurological exam: Present: alert, oriented X3 - Psychiatric Psychiatric exam: Present: normal affect, normal mood - Skin Skin exam: Present: warm, dry, intact, normal color. Absent: rash ED Course Vital Signs 09/30/18 09/30/18 09/30/18 22:33 23:38 23:45 Temperature 97.9 F Pulse Rate 79 93 H Pulse Rate [ Bilateral] Respiratory 18 20 Rate Respiratory Rate [Bilateral ] Blood Pressure 139/90 151/91 O2 Sat by Pulse 98 97 96 Oximetry 09/30/18 10/01/18 10/01/18 23:49 00:10 00:30 Temperature 97.7 F Pulse Rate Pulse Rate [ 75 85 Bilateral] Respiratory Rate Respiratory 20 20 Rate [Bilateral ] Blood Pressure O2 Sat by Pulse Oximetry 10/01/18 10/01/18 10/01/18 01:19 01:45 02:15 Temperature Pulse Rate 110 H 102 H 95 H Pulse Rate [ Bilateral] Respiratory 17 14 Rate Respiratory Rate [Bilateral ] Blood Pressure 126/69 117/58 126/58 O2 Sat by Pulse 96 91 92 Oximetry 10/01/18 10/01/18 10/01/18 02:45 04:01 04:21 Temperature Pulse Rate 94 H 76 83 Pulse Rate [ Bilateral] Respiratory 30 H 17 13 Rate Respiratory Rate [Bilateral ] Blood Pressure 113/67 115/62 103/73 O2 Sat by Pulse 91 92 92 Oximetry ED Medical Decision Making - Lab Data Result diagrams: 09/30/18 22:54 10/01/18 18:30 Vital Signs 09/30/18 09/30/18 09/30/18 22:33 23:38 23:45 Temperature 97.9 F Pulse Rate 79 93 H Pulse Rate [ Bilateral] Respiratory 18 20 Rate Respiratory Rate [Bilateral ] Blood Pressure 139/90 151/91 O2 Sat by Pulse 98 97 96 Oximetry 09/30/18 10/01/18 10/01/18 23:49 00:10 00:30 Temperature 97.7 F Pulse Rate Pulse Rate [ 75 85 Bilateral] Respiratory Rate Respiratory 20 20 Rate [Bilateral ] Blood Pressure O2 Sat by Pulse Oximetry 10/01/18 01:19 Temperature Pulse Rate 110 H Pulse Rate [ Bilateral] Respiratory Rate Respiratory Rate [Bilateral ] Blood Pressure 126/69 O2 Sat by Pulse 96 Oximetry Lab Results 09/30/18 09/30/18 09/30/18 Range/Units 22:54 22:54 22:54 WBC 2.5 L (4.5-11.0) K/mm3 RBC 3.90 (3.65-5.03) M/mm3 Hgb 14.3 (11.8-15.2) gm/dl Hct 41.3 (35.5-45.6) % MCV 106 H (84-94) fl MCH 37 H (28-32) pg MCHC 35 H (32-34) % RDW 14.6 (13.2-15.2) % Plt Count 248 (140-440) K/mm3 [place] % (Auto) Spinning Frame Changer Add Manual Diff Complete Total Counted 100 Seg Neuts % (Manual) 39.0 L (40.0-70.0) % Band Neutrophils % 0 % Lymphocytes % (Manual) 44.0 H (13.4-35.0) % Reactive Lymphs % (Man) 0 % Monocytes % (Manual) 14.0 H (0.0-7.3) % Eosinophils % (Manual) 2.0 (0.0-4.3) % Basophils % (Manual) 1.0 (0.0-1.8) % Metamyelocytes % 0 % Myelocytes % 0 % Promyelocytes % 0 % Blast Cells % 0 % Nucleated RBC % Not Reportable Seg Neutrophils # Man 1.0 L (1.8-7.7) K/mm3 Band Neutrophils # 0.0 K/mm3 Lymphocytes # (Manual) 1.1 L (1.2-5.4) K/mm3 Abs React Lymphs (Man) 0.0 K/mm3 Monocytes # (Manual) 0.4 (0.0-0.8) K/mm3 Eosinophils # (Manual) 0.1 (0.0-0.4) K/mm3 Basophils # (Manual) 0.0 (0.0-0.1) K/mm3 Metamyelocytes # 0.0 K/mm3 Myelocytes # 0.0 K/mm3 Promyelocytes # 0.0 K/mm3 Blast Cells # 0.0 K/mm3 WBC Morphology Not Reportable Hypersegmented Neuts Not Reportable Hyposegmented Neuts Not Reportable Hypogranular Neuts Not Reportable Smudge Cells Not Reportable Toxic Granulation Not Reportable Toxic Vacuolation Not Reportable Dohle Bodies Not Reportable Pelger-Huet Anomaly Not Reportable [place] Not Reportable Platelet Estimate Not Reportable Clumped Platelets Not Reportable Plt Clumps, EDTA Not Reportable Large Platelets Not Reportable Giant Platelets Not Reportable Platelet Satelliting Not Reportable Plt Morphology Comment Not Reportable RBC Morphology Normal Dimorphic RBCs Not Reportable Polychromasia Not Reportable Hypochromasia Not Reportable Poikilocytosis Not Reportable Anisocytosis Not Reportable Microcytosis Not Reportable Macrocytosis Not Reportable Spherocytes Not Reportable Pappenheimer Bodies Not Reportable Sickle Cells Not Reportable Target Cells Not Reportable Tear Drop Cells Not Reportable Ovalocytes Not Reportable Helmet Cells Not Reportable [place] Bodies Not Reportable [place] Rings Not Reportable [place] Cells Not Reportable Bite Cells Not Reportable Crenated Cell Not Reportable Elliptocytes Not Reportable Acanthocytes (Spur) Not Reportable Rouleaux Not Reportable Hemoglobin C Crystals Not Reportable Schistocytes Not Reportable Malaria parasites Not Reportable Chidi Bodies Not Reportable Hem Pathologist Commnt No PT 14.0 (12.2-14.9) Sec. INR 1.02 (0.87-1.13) APTT 28.1 (24.2-36.6) Sec. Thrombin Time (15.1-19.6) Sec. Sodium 138 (137-145) mmol/L Potassium 3.7 (3.6-5.0) mmol/L Chloride 103.4 (98-107) mmol/L Carbon Dioxide 25 (22-30) mmol/L Anion Gap 13 mmol/L BUN 9 (9-20) mg/dL Creatinine 0.8 (0.8-1.5) mg/dL Estimated GFR > 60 ml/min BUN/Creatinine Ratio 11 % Glucose 94 (75-100) mg/dL Calcium 8.9 (8.4-10.2) mg/dL Magnesium (1.7-2.3) mg/dL Total Bilirubin (0.1-1.2) mg/dL Direct Bilirubin (0-0.2) mg/dL Indirect Bilirubin mg/dL AST (5-40) units/L ALT (7-56) units/L Alkaline Phosphatase (35-129) units/L Total Creatine Kinase (55-170) units/L Troponin T < 0.010 (0.00-0.029) ng/mL NT-Pro-B Natriuret Pep (0-900) pg/mL Total Protein (6.3-8.2) g/dL Albumin (3.9-5) g/dL Albumin/Globulin Ratio % 09/30/18 10/01/18 Range/Units 22:54 00:09 WBC (4.5-11.0) K/mm3 RBC (3.65-5.03) M/mm3 Hgb (11.8-15.2) gm/dl Hct (35.5-45.6) % MCV (84-94) fl MCH (28-32) pg MCHC (32-34) % RDW (13.2-15.2) % Plt Count (140-440) K/mm3 [place] % (Auto) Add Manual Diff Total Counted Seg Neuts % (Manual) (40.0-70.0) % Band Neutrophils % % Lymphocytes % (Manual) (13.4-35.0) % Reactive Lymphs % (Man) % Monocytes % (Manual) (0.0-7.3) % Eosinophils % (Manual) (0.0-4.3) % Basophils % (Manual) (0.0-1.8) % Metamyelocytes % % Myelocytes % % Promyelocytes % % Blast Cells % % Nucleated RBC % Seg Neutrophils # Man (1.8-7.7) K/mm3 Band Neutrophils # K/mm3 Lymphocytes # (Manual) (1.2-5.4) K/mm3 Abs React Lymphs (Man) K/mm3 Monocytes # (Manual) (0.0-0.8) K/mm3 Eosinophils # (Manual) (0.0-0.4) K/mm3 Basophils # (Manual) (0.0-0.1) K/mm3 Metamyelocytes # K/mm3 Myelocytes # K/mm3 Promyelocytes # K/mm3 Blast Cells # K/mm3 WBC Morphology Hypersegmented Neuts Hyposegmented Neuts Hypogranular Neuts Smudge Cells Toxic Granulation Toxic Vacuolation Dohle Bodies Pelger-Huet Anomaly [place] Platelet Estimate Clumped Platelets Plt Clumps, EDTA Large Platelets Giant Platelets Platelet Satelliting Plt Morphology Comment RBC Morphology Dimorphic RBCs Polychromasia Hypochromasia Poikilocytosis Anisocytosis Microcytosis Macrocytosis Spherocytes Pappenheimer Bodies Sickle Cells Target Cells Tear Drop Cells Ovalocytes Helmet Cells [place] Bodies [place] Rings [place] Cells Bite Cells Crenated Cell Elliptocytes Acanthocytes (Spur) Rouleaux Hemoglobin C Crystals Schistocytes Malaria parasites Chidi Bodies Hem Pathologist Commnt PT (12.2-14.9) Sec. INR (0.87-1.13) APTT (24.2-36.6) Sec. Thrombin Time 15.4 (15.1-19.6) Sec. Sodium (137-145) mmol/L Potassium (3.6-5.0) mmol/L Chloride (98-107) mmol/L Carbon Dioxide (22-30) mmol/L Anion Gap mmol/L BUN (9-20) mg/dL Creatinine (0.8-1.5) mg/dL Estimated GFR ml/min BUN/Creatinine Ratio % Glucose (75-100) mg/dL Calcium (8.4-10.2) mg/dL Magnesium 1.90 (1.7-2.3) mg/dL Total Bilirubin 0.70 (0.1-1.2) mg/dL Direct Bilirubin < 0.2 (0-0.2) mg/dL Indirect Bilirubin 0.5 mg/dL AST 15 (5-40) units/L ALT 11 (7-56) units/L Alkaline Phosphatase 100 (35-129) units/L Total Creatine Kinase 196 H (55-170) units/L Troponin T (0.00-0.029) ng/mL NT-Pro-B Natriuret Pep 93.40 (0-900) pg/mL Total Protein 7.5 (6.3-8.2) g/dL Albumin 3.8 L (3.9-5) g/dL Albumin/Globulin Ratio 1.0 % - EKG Data -: EKG Interpreted by Me EKG shows normal: sinus rhythm Rate: normal - EKG Data 10/01/18 02:01 EKG #1 shows a normal sinus rhythm, 85 bpm, left axis deviation, left anterior fascicular block, premature ventricular contractions, atrial enlargement, QTC prolonged, question right bundle-branch block, chest pain, pseudo-normalized T waves, when compared to prior EKG from 2018, nonspecific changes have been noted. - Radiology Data Radiology results: pending, report reviewed, image reviewed Noncontrast CT scan of the brain is negative for acute disease. Chronic findings noted. CT scan of the chest shows no pulmonary embolus. Chronic emphysematous changes are suggested. - Medical Decision Making Differential diagnosis, including but not limited to: Subacute stroke, COPD, CHF, right-sided heart failure, pulmonary hypertension, pneumonia, bronchitis, acute coronary syndrome, pulmonary embolus Assessment and plan: 58-year-old gentleman with complaints. Complaint #1, worsening left-sided weakness, present for the past 4 days. Given that he takes systemic anticoagulation, and with symptoms being present for the past 4 days, patient not a TPA candidate. At this point in time, would not benefit from endovascular intervention given duration of symptoms, and his exam today is unlikely to be consistent with a large vessel occlusion. Therefore, no CTA acquired. Discussed with consulting stroke neurology, Dr. Johnson, who stated that patient systemic anticoagulation could be reinitiated at this point in time, assuming no intracranial hemorrhage, which is the case at this point in time. Aspirin will be given, and he will be admitted to the medical service for presumed subacute stroke. Complaint #2, pain with shortness of breath. No pulmonary embolism identified on CT scan of the chest. Likely worsening pulmonary hypertension, COPD, question early right-sided heart failure. He will be given albuterol and diuretics. The hospital physician, Dr. Baig will admit the patient to the medical service. Critical care attestation.: If time is entered above; I have spent that time in minutes in the direct care of this critically ill patient, excluding procedure time. ED Disposition Clinical Impression: Dyspnea, Left-sided weakness Disposition: DC-09 OP ADMIT IP TO THIS HOSP Is pt being admited?: Yes Does the pt Need Aspirin: Yes Condition: Stable - Assessment Assessment Interval: Baseline - Level of Consciousness 1a. Level of Consciousness: alert/keenly responsive - LOC Questions 1b. LOC Questions: answers both correctly - LOC Command 1c. LOC Commands: performs tasks correctly - Best Gaze 2. Best Gaze: normal - Visual 3. Visual: no visual loss - Facial Palsy 4. Facial Palsy: normal symmetrical movement - Motor Arm 5a. Motor Arm Left: drift 5b. Motor Arm Right: no drift - Motor Leg 6a. Motor Leg Left: drift 6b. Motor Leg Right: no drift - Limb Ataxia 7. Limb Ataxia: absent - Sensory 8. Sensory: mild/moderate sensory loss - Best Language 9. Best Language: no aphasia - Dysarthria 10. Dysarthria: normal - Extinction and Inattention 11. Extinction/Inattention: no abnormality - Scoring Total Score: 3 Stroke Severity: Minor Stroke
[2018-10-01 00:13] LABS: BUN/Creatinine Ratio 11; Blood Urea Nitrogen 9 mg/dL (9-20)
--- NOTE | 2018-10-01 00:30 | Cat Scan Report ---
PROCEDURE: CT HEAD/BRAIN WO CON TECHNIQUE: Computerized tomography of the head was performed without contrast material. CT DOSE LENGTH PRODUCT: mGycm HISTORY: HX LEFT SIDED STROKE---WORSTENING LEFT SIDED WEAKNESS COMPARISONS: June 01, 2018 . FINDINGS: Skull and scalp: Normal . Paranasal sinuses: Normal . Ventricles and subarachnoid spaces: Normal . Cerebrum: An irregular ill-defined hypodense lesion is noted involving right parieto-occipital region measuring about 1.4 cm.. An acute intra-axial or extra-axial hemorrhage is not identified. Cerebellum and brainstem: No evidence of hemorrhage, acute infarction or mass . Vasculature: Normal . Other: None . ASPECTS: 10 IMPRESSION: An irregular hypodense lesion of right parieto-occipital region is stable since the prior study and is consistent with encephalomalacia secondary to an old infarct or hemorrhage. No acute intracranial abnormality. This document is electronically signed by Michael Tierney MD., September 30 2018 11:33:22 PM ET
--- NOTE | 2018-10-01 00:30 | XRay Report ---
PROCEDURE: XR CHEST 1V AP TECHNIQUE: Chest radiograph single view. HISTORY: neuro deficit COMPARISONS: June 01, 2018 . FINDINGS: Heart: Normal. Mediastinum/Vessels: Normal. Lungs/Pleural space: Normal. Bony thorax: No acute osseous abnormality. Life support devices: None. IMPRESSION: No acute cardiopulmonary abnormality. This document is electronically signed by Michael Tierney MD., September 30 2018 11:52:39 PM ET
[2018-10-01 00:55] LABS: Alanine Aminotransferase 11 units/L (7-56); Albumin 3.8 g/dL (3.9-5)
[2018-10-01 00:59] LABS: Bilirubin,Direct < 0.2 mg/dL (0-0.2)
[2018-10-01 01:42] LABS: RBC Morphology Normal; Total Cells Counted 100
--- NOTE | 2018-10-01 01:51 | Cat Scan Report ---
PROCEDURE: CT ANGIO CHEST TECHNIQUE: Computerized tomographic angiography of the chest was performed after the IV injection of iodinated nonionic contrast including image processing. The image data was postprocessed using 2-di mensional multiplanar reformatted (MPR) and 3-dimensional (MIP and/or volume rendered) techniques. Au tomated exposure control, adjustment of mA and/or kV according to patient size, or iterative reconstr uction dose optimization techniques were utilized. HISTORY: sob weak lower ext swelling hx of pe COMPARISONS: None . FINDINGS: Heart and pericardium: Normal. Thoracic aorta: Normal. Pulmonary vasculature: There is no evidence of pulmonary arterial emboli. Lymph nodes: No enlarged thoracic lymph nodes. Lungs: Mild chronic obstructive changes. No consolidation, effusion or pneumothorax. The central air ways patent. Pleural space: No effusion, thickening, or pneumothorax. Musculoskeletal structures: Mild degenerative changes of the spine.. Upper abdominal structures: No significant abnormality. IMPRESSION: There is no evidence of pulmonary arterial emboli. Mild chronic obstructive changes. No consolidation, effusion or pneumothorax . This document is electronically signed by Jody Whelan DO., October 01 2018 01:49:05 AM ET
[2018-10-01] MEDS ORDERED: TYLENOL PO PRN (02:02)
[2018-10-01] MEDS ORDERED: SODIUM CHLORIDE FLUSH SYRINGE 10 ML IV PRN (02:02)
[2018-10-01] MEDS ORDERED: ZOFRAN IV PRN (02:02)
[2018-10-01] MEDS ORDERED: PROVENTIL IH PRN (02:02)
[2018-10-01] MEDS ORDERED: MORPHINE IV PRN (02:02)
[2018-10-01] MEDS ORDERED: BABY ASPIRIN PO ONE (02:05)
--- NOTE | 2018-10-01 02:40 | History and Physical Report ---
<JJ YING - Last Filed: 10/01/18 03:15> History of Present Illness Date of examination: 10/01/18 Date of admission: 10/01/2018 Chief complaint: Left-sided weakness and left-sided weakness and shortness of breath History of present illness: 58-year-old -[place] male with history of CVA (2015) with left sided weakness, cocaine abuse, tobacco abuse, COPD, HLD, DM, BPH, HTN, PE anticoagulated on Eliquis presents to [facility] ED with complaints of worsening left- sided weakness and dyspnea. Patient states that over the past week he has been experiencing progressively worsening left-sided weakness and dyspnea at rest and with exertion. Patient states that he is unable to perform ADLs due to worsening left-sided weakness and shortness of breath. Admits weakness, malaise, cough, green sputum production, dyspnea at rest and with activity. Denies fever, chest pain, headache, visual disturbances, hemoptysis, nausea, vomiting, or diaphoresis. Review of medical records show the patient was admitted and treated for acute toxic encephalopathy in May 2018. Past History Past Medical History: COPD, diabetes, hypertension, hyperlipidemia (BPH), pulmonary embolism (anticoagulated on Eliquis), stroke (02/2016 L MCA on MRI, left sidedn weakness) Past Surgical History: No surgical history Social history: smoking (smokes less than half a pack per day) Family history: no significant family history Medications and Allergies Allergies Allergy/AdvReac Type Severity Reaction Status Date / Time No Known Allergies Allergy Verified 01/06/14 14:00 Home Medications Medication Instructions Recorded Confirmed Last Taken Type ALBUTEROL Inhaler(NF) [VENTOLIN 1 puff IH Q4H PRN #1 inha 06/03/18 10/01/18 Unknown Rx Inhaler(NF)] Benzonatate [Tessalon Perles] 100 mg PO Q8HR #30 capsule 06/03/18 10/01/18 Unknown Rx Tamsulosin [Flomax] 0.4 mg PO QDAY #30 capsule 06/03/18 10/01/18 Unknown Rx guaiFENesin [Robitussin] 200 mg PO Q6H PRN #120 ml 06/03/18 10/01/18 Unknown Rx Apixaban [Eliquis] 5 mg PO BID #60 tablet 10/03/18 Unknown Rx Metoprolol Xl [Metoprolol 25 mg PO QDAY #30 tablet 10/03/18 Unknown Rx SUCCINATE ER TAB] Prednisone [predniSONE 5 mg (6-Day 5 mg PO .TAPER #1 tab.ds.pk 10/03/18 Unknown Rx Pack, 21 Tabs)] Active Meds: Active Medications Acetaminophen (Tylenol) 650 mg PO Q4H PRN PRN Reason: Pain MILD(1-3)/Fever >100.5/ELDER Albuterol (Proventil) 2.5 mg IH Q3HRT PRN PRN Reason: Shortness Of Breath Albuterol/Ipratropium (Duoneb *Not For Prn Use*) 1 ampul IH Q4HRT [facility] Apixaban (Eliquis) 5 mg PO Q12HR [facility]; Protocol Budesonide (Pulmicort) 0.5 mg IH Q12HRT [facility] Guaifenesin (Mucinex Er) 600 mg PO BID [facility] Levofloxacin/Dextrose (Levaquin 500mg/100ml) 500 mg in 100 mls @ 100 mls/hr IV Q24HR [facility]; Protocol Methylprednisolone Sodium Succinate (Solu-Medrol) 60 mg IV Q6HR [facility] Morphine Sulfate (Morphine) 2 mg IV Q4H PRN PRN Reason: Pain, Moderate (4-6) Stop: 10/02/18 23:59 Ondansetron HCl (Zofran) 4 mg IV Q8H PRN PRN Reason: Nausea And Vomiting Pravastatin Sodium (Pravachol) 40 mg PO QHS [facility] Sodium Chloride (Sodium Chloride Flush Syringe 10 Ml) 10 ml IV BID [facility] Sodium Chloride (Sodium Chloride Flush Syringe 10 Ml) 10 ml IV PRN PRN PRN Reason: LINE FLUSH Review of Systems All systems: negative (reviewed and no additional remarkable complaints except as noted below) Constitutional: weakness, malaise Cardiovascular: edema, shortness of breath, dyspnea on exertion Respiratory: cough with sputum (green colored sputum), shortness of breath, dyspnea on exertion Musculoskeletal: limitation of motion (worsening left-sided weakness) Exam - Physical Exam Narrative exam: Physical exam General appearance: Present: No acute distress, alert and oriented 3, pleasant older adult male - EENT Eyes: Present: PERRL, EOM intact ENT: hearing intact, wears dentures - Neck Neck: Present: supple, normal ROM - Respiratory Respiratory effort: Non-labored Respiratory: bilateral: diminished (bases), productive cough noted - Cardiovascular Heart rate: 85 (bpm) Rhythm: Sinus rhythm, ventricular bigeminy Heart Sounds: Present: S1 & S2. Absent: rub, click - Extremities Extremities: no ischemia, pulses intact, abnormal (3+ pitting edema) - Peripheral Assessment Peripheral Pulses: within normal limits - Abdominal General gastrointestinal: soft, non-tender, normal bowel sounds - Integumentary Integumentary: Present: warm, dry - Musculoskeletal Musculoskeletal: Able to move upper and lower extremities against gravity, Left sided weakness, - Psychiatric Psychiatric: Appropriate for situation, cooperative - Constitutional Vitals: Temp Pulse Resp BP Pulse Ox 97.7 F 110 H 20 126/69 96 09/30/18 23:49 10/01/18 01:19 10/01/18 00:30 10/01/18 01:19 10/01/18 01:19 Results - Labs CBC & Chem 7: 09/30/18 22:54 09/30/18 22:54 Labs: Laboratory Last Values WBC 2.5 K/mm3 (4.5-11.0) L 09/30/18 22:54 RBC 3.90 M/mm3 (3.65-5.03) 09/30/18 22:54 Hgb 14.3 gm/dl (11.8-15.2) 09/30/18 22:54 Hct 41.3 % (35.5-45.6) 09/30/18 22:54 MCV 106 fl (84-94) H 09/30/18 22:54 MCH 37 pg (28-32) H 09/30/18 22:54 MCHC 35 % (32-34) H 09/30/18 22:54 RDW 14.6 % (13.2-15.2) 09/30/18 22:54 Plt Count 248 K/mm3 (140-440) 09/30/18 22:54 Saline % (Auto) Lacquer Spray Booth Operator 09/30/18 22:54 Add Manual Diff Complete 09/30/18 22:54 Total Counted 100 09/30/18 22:54 Seg Neuts % (Manual) 39.0 % (40.0-70.0) L 09/30/18 22:54 0 % 09/30/18 22:54 44.0 % (13.4-35.0) H 09/30/18 22:54 Reactive Lymphs % (Man) 0 % 09/30/18 22:54 14.0 % (0.0-7.3) H 09/30/18 22:54 2.0 % (0.0-4.3) 09/30/18 22:54 1.0 % (0.0-1.8) 09/30/18 22:54 0 % 09/30/18 22:54 0 % 09/30/18 22:54 0 % 09/30/18 22:54 0 % 09/30/18 22:54 Nucleated RBC % Not Reportable 09/30/18 22:54 Seg Neutrophils # Man 1.0 K/mm3 (1.8-7.7) L 09/30/18 22:54 Band Neutrophils # 0.0 K/mm3 09/30/18 22:54 1.1 K/mm3 (1.2-5.4) L 09/30/18 22:54 Abs React Lymphs (Man) 0.0 K/mm3 09/30/18 22:54 0.4 K/mm3 (0.0-0.8) 09/30/18 22:54 0.1 K/mm3 (0.0-0.4) 09/30/18 22:54 0.0 K/mm3 (0.0-0.1) 09/30/18 22:54 0.0 K/mm3 09/30/18 22:54 0.0 K/mm3 09/30/18 22:54 0.0 K/mm3 09/30/18 22:54 Blast Cells # 0.0 K/mm3 09/30/18 22:54 WBC Morphology Not Reportable 09/30/18 22:54 Hypersegmented Neuts Not Reportable 09/30/18 22:54 Hyposegmented Neuts Not Reportable 09/30/18 22:54 Hypogranular Neuts Not Reportable 09/30/18 22:54 Not Reportable 09/30/18 22:54 Not Reportable 09/30/18 22:54 Not Reportable 09/30/18 22:54 Not Reportable 09/30/18 22:54 Not Reportable 09/30/18 22:54 Not Reportable 09/30/18 22:54 Not Reportable 09/30/18 22:54 Not Reportable 09/30/18 22:54 Plt Clumps, EDTA Not Reportable 09/30/18 22:54 Not Reportable 09/30/18 22:54 Not Reportable 09/30/18 22:54 Not Reportable 09/30/18 22:54 Plt Morphology Comment Not Reportable 09/30/18 22:54 RBC Morphology Normal 09/30/18 22:54 Dimorphic RBCs Not Reportable 09/30/18 22:54 Not Reportable 09/30/18 22:54 Not Reportable 09/30/18 22:54 Not Reportable 09/30/18 22:54 Not Reportable 09/30/18 22:54 Not Reportable 09/30/18 22:54 Not Reportable 09/30/18 22:54 Not Reportable 09/30/18 22:54 Not Reportable 09/30/18 22:54 Not Reportable 09/30/18 22:54 Not Reportable 09/30/18 22:54 Not Reportable 09/30/18 22:54 Not Reportable 09/30/18 22:54 Not Reportable 09/30/18 22:54 Not Reportable 09/30/18 22:54 Not Reportable 09/30/18 22:54 Not Reportable 09/30/18 22:54 Not Reportable 09/30/18 22:54 Not Reportable 09/30/18 22:54 Not Reportable 09/30/18 22:54 Acanthocytes (Spur) Not Reportable 09/30/18 22:54 Rouleaux Not Reportable 09/30/18 22:54 Not Reportable 09/30/18 22:54 Not Reportable 09/30/18 22:54 Not Reportable 09/30/18 22:54 Not Reportable 09/30/18 22:54 Hem Pathologist Commnt No 09/30/18 22:54 PT 14.0 Sec. (12.2-14.9) 09/30/18 22:54 INR 1.02 (0.87-1.13) 09/30/18 22:54 APTT 28.1 Sec. (24.2-36.6) 09/30/18 22:54 15.4 Sec. (15.1-19.6) 09/30/18 22:54 Sodium 138 mmol/L (137-145) 09/30/18 22:54 Potassium 3.7 mmol/L (3.6-5.0) 09/30/18 22:54 Chloride 103.4 mmol/L (98-107) 09/30/18 22:54 Carbon Dioxide 25 mmol/L (22-30) 09/30/18 22:54 13 mmol/L 09/30/18 22:54 BUN 9 mg/dL (9-20) 09/30/18 22:54 0.8 mg/dL (0.8-1.5) 09/30/18 22:54 Estimated GFR > 60 ml/min 09/30/18 22:54 11 % 09/30/18 22:54 Glucose 94 mg/dL (75-100) 09/30/18 22:54 Calcium 8.9 mg/dL (8.4-10.2) 09/30/18 22:54 Magnesium 1.90 mg/dL (1.7-2.3) 10/01/18 00:09 0.70 mg/dL (0.1-1.2) 10/01/18 00:09 < 0.2 mg/dL (0-0.2) 10/01/18 00:09 0.5 mg/dL 10/01/18 00:09 AST 15 units/L (5-40) 10/01/18 00:09 ALT 11 units/L (7-56) 10/01/18 00:09 100 units/L (35-129) 10/01/18 00:09 196 units/L (55-170) H 10/01/18 00:09 < 0.010 ng/mL (0.00-0.029) 09/30/18 22:54 NT-Pro-B Natriuret Pep 93.40 pg/mL (0-900) 10/01/18 00:09 7.5 g/dL (6.3-8.2) 10/01/18 00:09 3.8 g/dL (3.9-5) L 10/01/18 00:09 1.0 % 10/01/18 00:09 - Imaging and Cardiology EKG: image reviewed (85 bpm, left axis deviation, premature ventricular contractions) Chest x-ray: report reviewed (No acute cardiopulmonary abnormality.), image revi ewed CT Scan - head: report reviewed (An irregular hypodense lesion of right parieto- occipital region is stable since the rior study and is consistent with encephalomalacia secondary to an old infarct or hemorrhage.No acute intracranial abnormality. ), image reviewed Imaging and Cardiology: CTA Chest: Findings: There is no evidence of pulmonary arterial emboli. Assessment and Plan Assessment and plan: 58-year-old -[place] male with history of CVA (2016) with left sided weakness, cocaine abuse, tobacco abuse, COPD, HLD, DM, BPH, HTN, PE anticoagulated on Eliquis presents to [facility] ED with complaints of worsening left- sided weakness and dyspnea with exertion. CXR unrevealing for acute cardiopulmonary abnormalities. CTA chest negative for PE. CT head did not reve al any acute intracranial abnormality, and showed stable irregular hypodense lesion of right arieto-occipital region consistent with encephalomalacia secondary to an old infarct or hemorrhage. On examination patient found to have left sided weakness to upper and lower extremity. Troponin negative 2. Will admit to Telemetry for further evaluation. R/O CVA hx of CVA in 2016 AE COPD hx of COPD Fluid overload Neutropenia Hx of PE on Eliquis DM HTN HLD BPH Tobacco abuse Hx of cocaine abuse Plan: Continue supportive care Neuro checks per protocol Neurology consult pending MRI/MRA and echo pending Start Levaquin 500 mg daily Scheduled DuoNebs and Pulmicort, albuterol when necessary Solu-Medrol 60 mg every 6 hours Mucinex Monitor CBC Resume Eliquis 5 mg twice a day Lasix 40mg BID x1 day Monitor BP IV hydralazine when necessary Counseled for smoking cessation refused nicotine patch Pravastatin 40 mg daily at bedtime ABG pending Toxicology pending POC BG monitoring SSI Coverage HgbA1C pending DVT PPX on Eliquis and SCD's Medication reconciliation pending Advance Directives: No VTE prophylaxis?: Chemical Plan of care discussed with patient/family: Yes <RODRICK FINK - Last Filed: 10/03/18 23:02> Medications and Allergies Active Meds: Active Medications Acetaminophen (Tylenol) 650 mg PO Q4H PRN PRN Reason: Pain MILD(1-3)/Fever >100.5/ELDER Albuterol (Proventil) 2.5 mg IH Q3HRT PRN PRN Reason: Shortness Of Breath Albuterol/Ipratropium (Duoneb *Not For Prn Use*) 1 ampul IH Q4HRT [facility] Apixaban (Eliquis) 5 mg PO Q12HR [facility]; Protocol Budesonide (Pulmicort) 0.5 mg IH Q12HRT [facility] Dextrose (D50w (25gm) Syringe) 50 ml IV PRN PRN PRN Reason: Hypoglycemia Furosemide (Lasix) 40 mg IV 0600,1800 [facility] Stop: 10/01/18 18:01 Guaifenesin (Mucinex Er) 600 mg PO BID [facility] Last Admin: 10/01/18 02:58 Dose: 600 mg Documented by: Hydralazine HCl (Apresoline) 10 mg IV Q4H PRN PRN Reason: Blood Pressure Levofloxacin/Dextrose (Levaquin 500mg/100ml) 500 mg in 100 mls @ 100 mls/hr IV Q24HR [facility]; Protocol Insulin Human Lispro (Humalog) 0 unit SUB-Q ACHS [facility]; Protocol Methylprednisolone Sodium Succinate (Solu-Medrol) 60 mg IV Q6H [facility] Last Admin: 10/01/18 02:58 Dose: 60 mg Documented by: Ondansetron HCl (Zofran) 4 mg IV Q8H PRN PRN Reason: Nausea And Vomiting Pravastatin Sodium (Pravachol) 40 mg PO QHS [facility] Sodium Chloride (Sodium Chloride Flush Syringe 10 Ml) 10 ml IV BID [facility] Sodium Chloride (Sodium Chloride Flush Syringe 10 Ml) 10 ml IV PRN PRN PRN Reason: LINE FLUSH Exam - Constitutional Vitals: Temp Pulse Resp BP Pulse Ox 97.7 F 94 H 30 H 113/67 91 09/30/18 23:49 10/01/18 02:45 10/01/18 02:45 10/01/18 02:45 10/01/18 02:45 Results - Labs CBC & Chem 7: 10/02/18 05:27 10/03/18 05:36 Labs: Laboratory Last Values WBC 2.5 K/mm3 (4.5-11.0) L 09/30/18 22:54 RBC 3.90 M/mm3 (3.65-5.03) 09/30/18 22:54 Hgb 14.3 gm/dl (11.8-15.2) 09/30/18 22:54 Hct 41.3 % (35.5-45.6) 09/30/18 22:54 MCV 106 fl (84-94) H 09/30/18 22:54 MCH 37 pg (28-32) H 09/30/18 22:54 MCHC 35 % (32-34) H 09/30/18 22:54 RDW 14.6 % (13.2-15.2) 09/30/18 22:54 Plt Count 248 K/mm3 (140-440) 09/30/18 22:54 Saline % (Auto) Lacquer Spray Booth Operator 09/30/18 22:54 Add Manual Diff Complete 09/30/18 22:54 Total Counted 100 09/30/18 22:54 Seg Neuts % (Manual) 39.0 % (40.0-70.0) L 09/30/18 22:54 0 % 09/30/18 22:54 44.0 % (13.4-35.0) H 09/30/18 22:54 Reactive Lymphs % (Man) 0 % 09/30/18 22:54 14.0 % (0.0-7.3) H 09/30/18 22:54 2.0 % (0.0-4.3) 09/30/18 22:54 1.0 % (0.0-1.8) 09/30/18 22:54 0 % 09/30/18 22:54 0 % 09/30/18 22:54 0 % 09/30/18 22:54 0 % 09/30/18 22:54 Nucleated RBC % Not Reportable 09/30/18 22:54 Seg Neutrophils # Man 1.0 K/mm3 (1.8-7.7) L 09/30/18 22:54 Band Neutrophils # 0.0 K/mm3 09/30/18 22:54 1.1 K/mm3 (1.2-5.4) L 09/30/18 22:54 Abs React Lymphs (Man) 0.0 K/mm3 09/30/18 22:54 0.4 K/mm3 (0.0-0.8) 09/30/18 22:54 0.1 K/mm3 (0.0-0.4) 09/30/18 22:54 0.0 K/mm3 (0.0-0.1) 09/30/18 22:54 0.0 K/mm3 09/30/18 22:54 0.0 K/mm3 09/30/18 22:54 0.0 K/mm3 09/30/18 22:54 Blast Cells # 0.0 K/mm3 09/30/18 22:54 WBC Morphology Not Reportable 09/30/18 22:54 Hypersegmented Neuts Not Reportable 09/30/18 22:54 Hyposegmented Neuts Not Reportable 09/30/18 22:54 Hypogranular Neuts Not Reportable 09/30/18 22:54 Not Reportable 09/30/18 22:54 Not Reportable 09/30/18 22:54 Not Reportable 09/30/18 22:54 Not Reportable 09/30/18 22:54 Not Reportable 09/30/18 22:54 Not Reportable 09/30/18 22:54 Not Reportable 09/30/18 22:54 Not Reportable 09/30/18 22:54 Plt Clumps, EDTA Not Reportable 09/30/18 22:54 Not Reportable 09/30/18 22:54 Not Reportable 09/30/18 22:54 Not Reportable 09/30/18 22:54 Plt Morphology Comment Not Reportable 09/30/18 22:54 RBC Morphology Normal 09/30/18 22:54 Dimorphic RBCs Not Reportable 09/30/18 22:54 Not Reportable 09/30/18 22:54 Not Reportable 09/30/18 22:54 Not Reportable 09/30/18 22:54 Not Reportable 09/30/18 22:54 Not Reportable 09/30/18 22:54 Not Reportable 09/30/18 22:54 Not Reportable 09/30/18 22:54 Not Reportable 09/30/18 22:54 Not Reportable 09/30/18 22:54 Not Reportable 09/30/18 22:54 Not Reportable 09/30/18 22:54 Not Reportable 09/30/18 22:54 Not Reportable 09/30/18 22:54 Not Reportable 09/30/18 22:54 Not Reportable 09/30/18 22:54 Not Reportable 09/30/18 22:54 Not Reportable 09/30/18 22:54 Not Reportable 09/30/18 22:54 Not Reportable 09/30/18 22:54 Acanthocytes (Spur) Not Reportable 09/30/18 22:54 Rouleaux Not Reportable 09/30/18 22:54 Not Reportable 09/30/18 22:54 Not Reportable 09/30/18 22:54 Not Reportable 09/30/18 22:54 Not Reportable 09/30/18 22:54 Hem Pathologist Commnt No 09/30/18 22:54 PT 14.0 Sec. (12.2-14.9) 09/30/18 22:54 INR 1.02 (0.87-1.13) 09/30/18 22:54 APTT 28.1 Sec. (24.2-36.6) 09/30/18 22:54 15.4 Sec. (15.1-19.6) 09/30/18 22:54 Sodium 138 mmol/L (137-145) 09/30/18 22:54 Potassium 3.7 mmol/L (3.6-5.0) 09/30/18 22:54 Chloride 103.4 mmol/L (98-107) 09/30/18 22:54 Carbon Dioxide 25 mmol/L (22-30) 09/30/18 22:54 13 mmol/L 09/30/18 22:54 BUN 9 mg/dL (9-20) 09/30/18 22:54 0.8 mg/dL (0.8-1.5) 09/30/18 22:54 Estimated GFR > 60 ml/min 09/30/18 22:54 11 % 09/30/18 22:54 Glucose 94 mg/dL (75-100) 09/30/18 22:54 Calcium 8.9 mg/dL (8.4-10.2) 09/30/18 22:54 Magnesium 1.90 mg/dL (1.7-2.3) 10/01/18 00:09 0.70 mg/dL (0.1-1.2) 10/01/18 00:09 < 0.2 mg/dL (0-0.2) 10/01/18 00:09 0.5 mg/dL 10/01/18 00:09 AST 15 units/L (5-40) 10/01/18 00:09 ALT 11 units/L (7-56) 10/01/18 00:09 100 units/L (35-129) 10/01/18 00:09 196 units/L (55-170) H 10/01/18 00:09 < 0.010 ng/mL (0.00-0.029) 09/30/18 22:54 NT-Pro-B Natriuret Pep 93.40 pg/mL (0-900) 10/01/18 00:09 7.5 g/dL (6.3-8.2) 10/01/18 00:09 3.8 g/dL (3.9-5) L 10/01/18 00:09 1.0 % 10/01/18 00:09 Assessment and Plan Assessment and plan: 58-year-old man with a history of CVA complicated by left-sided weakness, diabetes, hyperlipidemia, COPD, BPH, PE because emergency room with complaints of worsening left-sided weakness that started 4 days ago. Also complained that he developed slurred speech on the second day that lasted for 36 hours. Also has shortness of breath not rlieved with his inhalers, wheezing, cough productive of green phlegm. Physical exam significant for left side weakness 4/5, wheezing, lower extremity edema. Agree with above plan for TIA vs CVA, COPD exac, in addition, consult neurology.
[2018-10-01] MEDS: MUCINEX ER PO SCH ×3 (02:58→22:36)
[2018-10-01] MEDS: SOLU-Medrol IV SCH ×3 (02:58→17:23)
[2018-10-01] MEDS ORDERED: APRESOLINE IV PRN (03:04)
[2018-10-01] MEDS ORDERED: D50W (25GM) Syringe IV PRN (03:17)
[2018-10-01 05:03] LABS: Amphetamine Screen,Urine PRESUMPTIVE NEGATIVE; Benzodiazepines Screen,Urine PRESUMPTIVE NEGATIVE; Cannabinoid Screen,Urine PRESUMPTIVE NEGATIVE; Methadone Screen,Urine PRESUMPTIVE NEGATIVE; Opiate Screen,Urine PRESUMPTIVE NEGATIVE
[2018-10-01 05:24] LABS: Cocaine Screen,Urine PRESUMPTIVE POSITIVE
[2018-10-01] MEDS: DUONEB *Not for PRN Use IH SCH ×2 (05:47→09:47)
[2018-10-01] MEDS: LASIX IV SCH ×2 (06:56→17:24)
[2018-10-01] MEDS: PULMICORT IH SCH ×2 (09:47→20:08)
[2018-10-01] MEDS ORDERED: ASPIRIN PO SCH (10:00)
[2018-10-01] MEDS: SODIUM CHLORIDE FLUSH SYRINGE 10 ML IV SCH (10:11)
[2018-10-01] MEDS: ELIQUIS PO SCH ×2 (10:12→22:36)
[2018-10-01] MEDS: HumaLOG SUB-Q SCH ×3 (10:20→17:26)
[2018-10-01] MEDS: LEVAQUIN 500MG/100ML 500 MG/100 ML BAG IV SCH (14:11)
--- NOTE | 2018-10-01 17:07 | Event Note ---
Date: 10/01/18 Patient is 58 yo with previous stroke with residual left sided weakness. He presented with more weakness on left side. CT head unremarkable. For MRI Brain.
--- NOTE | 2018-10-01 17:22 | Consultation ---
History of Present Illness Consult date: 10/01/18 Chief complaint: left sided weakness History of present illness: This is a 58 YO M with known left sided weakness and stroke who presented with worsened weakness. Denied any new illness or injury. Takes Eliquis daily. Says he is better today but not at baseline. Past History Past Medical History: COPD, diabetes, hypertension, hyperlipidemia (BPH), pulmonary embolism (anticoagulated on Eliquis), stroke (02/2016 L MCA on MRI, left sidedn weakness) Past Surgical History: No surgical history Social history: smoking (smokes less than half a pack per day) Family history: no significant family history Medications and Allergies Allergies Allergy/AdvReac Type Severity Reaction Status Date / Time No Known Allergies Allergy Verified 01/06/14 14:00 Home Medications Medication Instructions Recorded Confirmed Last Taken Type ALBUTEROL Inhaler(NF) [VENTOLIN 1 puff IH Q4H PRN #1 inha 06/03/18 Unknown Rx Inhaler(NF)] Benzonatate [Tessalon Perles] 100 mg PO Q8HR #30 capsule 06/03/18 Unknown Rx Prednisone [predniSONE 5 mg (6-Day 5 mg PO .TAPER #1 tab.ds.pk 06/03/18 Unknown Rx Pack, 21 Tabs)] Tamsulosin [Flomax] 0.4 mg PO QDAY #30 capsule 06/03/18 Unknown Rx guaiFENesin [Robitussin] 200 mg PO Q6H PRN #120 ml 06/03/18 Unknown Rx Active Meds: Active Medications Acetaminophen (Tylenol) 650 mg PO Q4H PRN PRN Reason: Pain MILD(1-3)/Fever >100.5/ELDER Albuterol (Proventil) 2.5 mg IH Q3HRT PRN PRN Reason: Shortness Of Breath Apixaban (Eliquis) 5 mg PO Q12HR JESSA; Protocol Last Admin: 10/01/18 10:12 Dose: 5 mg Documented by: Arformoterol Tartrate (Brovana Nebu) 15 mcg IH Q12HRT JESSA Budesonide (Pulmicort) 0.5 mg IH Q12HRT JESSA Last Admin: 10/01/18 09:47 Dose: 0.5 mg Documented by: Dextrose (D50w (25gm) Syringe) 50 ml IV PRN PRN PRN Reason: Hypoglycemia Furosemide (Lasix) 40 mg IV 0600,1800 [facility] Stop: 10/01/18 18:01 Last Admin: 10/01/18 06:56 Dose: 40 mg Documented by: Guaifenesin (Mucinex Er) 600 mg PO BID [facility] Last Admin: 10/01/18 10:12 Dose: 600 mg Documented by: Hydralazine HCl (Apresoline) 10 mg IV Q4H PRN PRN Reason: Blood Pressure Levofloxacin/Dextrose (Levaquin 500mg/100ml) 500 mg in 100 mls @ 100 mls/hr IV Q24HR [facility]; Protocol Last Admin: 10/01/18 14:11 Dose: 100 mls/hr Documented by: Insulin Human Lispro (Humalog) 0 unit SUB-Q ACHS [facility]; Protocol Last Admin: 10/01/18 14:06 Dose: 2 unit Documented by: Lorazepam (Ativan) 1 mg IV Q4H PRN PRN Reason: anxiety or claustrophobia Methylprednisolone Sodium Succinate (Solu-Medrol) 60 mg IV Q6H [facility] Last Admin: 10/01/18 10:28 Dose: 60 mg Documented by: Ondansetron HCl (Zofran) 4 mg IV Q8H PRN PRN Reason: Nausea And Vomiting Pravastatin Sodium (Pravachol) 40 mg PO QHS [facility] Sodium Chloride (Sodium Chloride Flush Syringe 10 Ml) 10 ml IV BID [facility] Last Admin: 10/01/18 10:11 Dose: 10 ml Documented by: Sodium Chloride (Sodium Chloride Flush Syringe 10 Ml) 10 ml IV PRN PRN PRN Reason: LINE FLUSH Review of Systems Neurological: weakness Physical Examination - Vital Signs Vital Signs: Vital Signs Temp Pulse Resp BP Pulse Ox 97.9 F 79 18 139/90 98 09/30/18 22:33 09/30/18 22:33 09/30/18 22:33 09/30/18 22:33 09/30/18 22:33 - Constitutional General appearance: comfortable - EENT EENT: Present: mucous membranes moist - Respiratory Respiratory: Present: lungs clear - Cardiovascular Cardiovascular: Present: regular rate Extremities: Present: no peripheral edema bilatateraly - Gastrointestinal Gastrointestinal: Present: normoactive bowel sounds - Integumentary Integumentary: Present: normal - Neurologic Cranial nerve examination: EOMI, VFF, V1/V2/V3 grossly intact, face symmetric, tongue midline Speech examination: intact Motor examination - right side: 5/5: biceps, triceps, wrist flexion, wrist extension, 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 control 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 installer, hip flexors, knee extensors, dorsiflexion, toe extension (EHL), plantarflexion Motor examination - left side: 4/5: hip flexors, knee extensors, dorsiflexion, 5/5: biceps, triceps, wrist flexion, wrist extension, fire control 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 installer Detailed sensory examination: intact Reflexes: 1+: ankle, bicep, knee, tricep - Psychiatric Psychiatric: Present: mood/affect appropriate Results - Laboratory Findings CBC and BMP: 09/30/18 22:54 09/30/18 22:54 Abnormal Lab Findings: Abnormal Labs 09/30/18 10/01/18 10/01/18 22:54 00:09 10:25 WBC 2.5 L MCV 106 H MCH 37 H MCHC 35 H Seg Neuts % (Manual) 39.0 L Lymphocytes % (Manual) 44.0 H Monocytes % (Manual) 14.0 H Seg Neutrophils # Man 1.0 L Lymphocytes # (Manual) 1.1 L POC Glucose 222 H Total Creatine Kinase 196 H Albumin 3.8 L 10/01/18 10/01/18 12:39 16:56 WBC MCV MCH MCHC Seg Neuts % (Manual) Lymphocytes % (Manual) Monocytes % (Manual) Seg Neutrophils # Man Lymphocytes # (Manual) POC Glucose 212 H 171 H Total Creatine Kinase Albumin - Diagnostic Findings Additional findings: MRI Brain pending Assessment and Plan This is a 58 YO M with worsening left sided weakness, new stroke vs decompensation of previous stroke. Recommend MRI Brain, MRA head echo, carotids, lipids and A1c PT/OT/ST VTE prophylaxis Continue Eliquis and statin No obvious infection noted. Pt initially refused MRI Brain but will go back when sedated with Ativan.
[2018-10-01 19:26] LABS: BUN/Creatinine Ratio 18; Blood Urea Nitrogen 16 mg/dL (9-20); Calcium 9.5 mg/dL (8.4-10.2); Hemolysis Index 3
[2018-10-01] MEDS: BROVANA NEBU IH SCH (20:08)
[2018-10-01] MEDS ORDERED: LOVENOX SUB-Q SCH (22:00)
[2018-10-01] MEDS: PRAVACHOL PO SCH (22:36)
[2018-10-01] MEDS: ATIVAN IV PRN (22:36)
[2018-10-02] MEDS ORDERED: SODIUM PHOSPHATE 30 MMOL in NACL 0.9% 500 ML 500 ML IV ONE (05:26)
[2018-10-02 06:04] LABS: Basophils % (Auto) 0.1 % (0.0-1.8); Hematocrit 41.5 % (35.5-45.6); Hemoglobin 14.1 gm/dl (11.8-15.2); Lymphocytes # (Auto) 0.2 K/mm3 (1.2-5.4); Lymphocytes % (Auto) 3.1 % (13.4-35.0); Mean Corpuscular HGB Conc 34 % (32-34); Mean Corpuscular Volume 106 fl (84-94); Monocytes # (Auto) 0.5 K/mm3 (0.0-0.8); Monocytes % (Auto) 8.7 % (0.0-7.3); Platelet Count 243 K/mm3 (140-440); Red Blood Count 3.93 M/mm3 (3.65-5.03); Red Cell Distribution Width 14.4 % (13.2-15.2)
[2018-10-02 06:18] LABS: BUN/Creatinine Ratio 23; Blood Urea Nitrogen 18 mg/dL (9-20); Calcium 8.4 mg/dL (8.4-10.2); Hemolysis Index 10; LDL Cholesterol,Direct 89 mg/dL (50-130)
[2018-10-02 08:19] LABS: Chol/HDL Ratio 3.02 %; HDL Cholesterol 47 mg/dL (40-59)
[2018-10-02] MEDS: ATIVAN IV PRN (08:31)
[2018-10-02] MEDS: HumaLOG SUB-Q SCH ×4 (08:52→22:16)
[2018-10-02] MEDS: SOLU-Medrol IV SCH ×5 (10:26→22:25)
--- NOTE | 2018-10-02 11:56 | Magnetic Resonance Report ---
MRI BRAIN WITHOUT CONTRAST: 10/02/18 CLINICAL: Stroke. History of left MCA stroke. COMPARISON: 09/30/18 CT head and 03/23/16 MRI brain TECHNIQUE: Axial diffusion, T1, T2, gradient echo T2*, coronal and axial FLAIR and sagittal T1 sequences on a 1.5 Goldie magnet. FINDINGS: The quality of the examination is degraded by motion on several of the sequences. Normal ventricles and sulci. No restricted diffusion. Focal T2 hyperintensity involving the left precentral gyrus and the left postcentral gyrus. These areas correlate with the previous area of infarct. No significant encephalomalacia of the left MCA territory. Focal right occipital lobe encephalomalacia is unchanged compared to the previous exam. No chronic microbleeds on the gradient echo sequence. No mass or mass effect. No hemorrhage, edema or extra-axial collection. Normal pituitary and optic chiasm. The brainstem and cerebellum are normal. Intact vascular flow voids. Normal sinuses. The orbits, and soft tissues are normal. Normal calvarium and skull base. IMPRESSION: No evidence of acute/subacute infarct or hemorrhage. Chronic left frontoparietal cortical infarcts and a chronic right occipital lobe infarct.
--- NOTE | 2018-10-02 11:59 | Magnetic Resonance Report ---
MRA HEAD WITHOUT CONTRAST: 10/02/18 CLINICAL: Stroke. TECHNIQUE: Axial 3-D [id number] MR angiography of the [place] with review of axial source images. FINDINGS: A poor quality examination due to motion. Relatively symmetric blood flow in bilateral ICA, MCA, PHILOMENA and GRAPHIC ARTS INSTRUCTOR. Intact basilar and vertebral arteries. IMPRESSION: A very limited study with patent vasculature. The quality of the examination is not sufficient to evaluate for stenoses.
[2018-10-02] MEDS: BROVANA NEBU IH SCH ×2 (14:07→20:42)
[2018-10-02] MEDS: PULMICORT IH SCH ×2 (14:07→20:42)
[2018-10-02] MEDS: LEVAQUIN 500MG/100ML 500 MG/100 ML BAG IV SCH (14:57)
[2018-10-02] MEDS: SODIUM CHLORIDE FLUSH SYRINGE 10 ML IV SCH ×2 (14:57→22:16)
[2018-10-02] MEDS: ELIQUIS PO SCH ×2 (14:58→22:15)
[2018-10-02] MEDS: MUCINEX ER PO SCH ×2 (14:58→22:15)
--- NOTE | 2018-10-02 15:04 | Progress Note ---
Assessment and Plan Assessment and plan: 58-year-old -[place] male with history of CVA (2016) with left sided weakness, cocaine abuse, tobacco abuse, COPD, HLD, DM, BPH, HTN, PE anticoagulated on Eliquis presents to [facility] ED with complaints of worsening left- sided weakness and dyspnea with exertion. CXR unrevealing for acute cardiopul monary abnormalities. CTA chest negative for PE. CT head did not reveal any acute intracranial abnormality, and showed stable irregular hypodense lesion of right arieto-occipital region consistent with encephalomalacia secondary to an old infarct or hemorrhage. Admitted to Telemetry for further evaluation. hx of CVA in 2016 AE COPD hx of COPD Fluid overload Neutropenia Hx of PE on Eliquis DM HTN HLD BPH Tobacco abuse Hx of cocaine abuse NSVT patient does not have stroke Plan: Continue supportive care Neuro checks per protocol Neurology following MRI negative for stroke cardiology consulted for NSVT Cont Levaquin 500 mg daily Scheduled DuoNebs and Pulmicort, albuterol when necessary Solu-Medrol 60 mg every 6 hours Mucinex Monitor CBC Resume Eliquis 5 mg twice a day Lasix 40mg BID x1 day Monitor BP IV hydralazine when necessary Counseled for smoking cessation refused nicotine patch Pravastatin 40 mg daily at bedtime Toxicology pending POC BG monitoring SSI Coverage HgbA1C pending DVT PPX on Eliquis and SCD's History Interval history: Left sided weakness NSVT Hospitalist Physical - Physical exam Narrative exam: Gen: Not in acute distress, lying in bed, HEENT: Normocephalic, atraumatic Neck: supple, no JVD Heart: S1 and S2 irreg, no murmurs, rubs or gallop Lungs: Clear, no crackles, no wheeze Abd: soft, non tender, non distended, normal BS Ext: No edema, no clubbing, no cyanosis, Neuro: Awake,alert, oriented x 3, left hemiparesis,residual Psych:Normal mood - Constitutional Vitals: Temp Pulse Resp BP Pulse Ox 97.9 F 68 18 135/96 96 10/02/18 12:14 10/02/18 12:14 10/02/18 12:14 10/02/18 12:14 10/02/18 12:14 Results - Labs CBC & Chem 7: 10/02/18 05:27 10/02/18 05:27 Labs: Laboratory Last Values WBC 6.3 K/mm3 (4.5-11.0) 10/02/18 05:27 RBC 3.93 M/mm3 (3.65-5.03) 10/02/18 05:27 Hgb 14.1 gm/dl (11.8-15.2) 10/02/18 05:27 Hct 41.5 % (35.5-45.6) 10/02/18 05:27 MCV 106 fl (84-94) H 10/02/18 05:27 MCH 36 pg (28-32) H 10/02/18 05:27 MCHC 34 % (32-34) 10/02/18 05:27 RDW 14.4 % (13.2-15.2) 10/02/18 05:27 Plt Count 243 K/mm3 (140-440) 10/02/18 05:27 Lymph % (Auto) 3.1 % (13.4-35.0) L 10/02/18 05:27 Bledsoe % (Auto) 8.7 % (0.0-7.3) H 10/02/18 05:27 Eos % (Auto) 0.0 % (0.0-4.3) 10/02/18 05:27 Baso % (Auto) 0.1 % (0.0-1.8) 10/02/18 05:27 Lymph # 0.2 K/mm3 (1.2-5.4) L 10/02/18 05:27 Bledsoe # 0.5 K/mm3 (0.0-0.8) 10/02/18 05:27 Eos # 0.0 K/mm3 (0.0-0.4) 10/02/18 05:27 Baso # 0.0 K/mm3 (0.0-0.1) 10/02/18 05:27 Add Manual Diff Complete 09/30/18 22:54 Total Counted 100 09/30/18 22:54 Seg Neutrophils % 88.1 % (40.0-70.0) H 10/02/18 05:27 Seg Neuts % (Manual) 39.0 % (40.0-70.0) L 09/30/18 22:54 0 % 09/30/18 22:54 44.0 % (13.4-35.0) H 09/30/18 22:54 Reactive Lymphs % (Man) 0 % 09/30/18 22:54 14.0 % (0.0-7.3) H 09/30/18 22:54 2.0 % (0.0-4.3) 09/30/18 22:54 1.0 % (0.0-1.8) 09/30/18 22:54 0 % 09/30/18 22:54 0 % 09/30/18 22:54 0 % 09/30/18 22:54 0 % 09/30/18 22:54 Nucleated RBC % Not Reportable 09/30/18 22:54 Seg Neutrophils # 5.5 K/mm3 (1.8-7.7) 10/02/18 05:27 Seg Neutrophils # Man 1.0 K/mm3 (1.8-7.7) L 09/30/18 22:54 Band Neutrophils # 0.0 K/mm3 09/30/18 22:54 1.1 K/mm3 (1.2-5.4) L 09/30/18 22:54 Abs React Lymphs (Man) 0.0 K/mm3 09/30/18 22:54 0.4 K/mm3 (0.0-0.8) 09/30/18 22:54 0.1 K/mm3 (0.0-0.4) 09/30/18 22:54 0.0 K/mm3 (0.0-0.1) 09/30/18 22:54 0.0 K/mm3 09/30/18 22:54 0.0 K/mm3 09/30/18 22:54 0.0 K/mm3 09/30/18 22:54 Blast Cells # 0.0 K/mm3 09/30/18 22:54 WBC Morphology Not Reportable 09/30/18 22:54 Hypersegmented Neuts Not Reportable 09/30/18 22:54 Hyposegmented Neuts Not Reportable 09/30/18 22:54 Hypogranular Neuts Not Reportable 09/30/18 22:54 Not Reportable 09/30/18 22:54 Not Reportable 09/30/18 22:54 Not Reportable 09/30/18 22:54 Not Reportable 09/30/18 22:54 Not Reportable 09/30/18 22:54 Not Reportable 09/30/18 22:54 Not Reportable 09/30/18 22:54 Not Reportable 09/30/18 22:54 Plt Clumps, EDTA Not Reportable 09/30/18 22:54 Not Reportable 09/30/18 22:54 Not Reportable 09/30/18 22:54 Not Reportable 09/30/18 22:54 Plt Morphology Comment Not Reportable 09/30/18 22:54 RBC Morphology Normal 09/30/18 22:54 Dimorphic RBCs Not Reportable 09/30/18 22:54 Not Reportable 09/30/18 22:54 Not Reportable 09/30/18 22:54 Not Reportable 09/30/18 22:54 Not Reportable 09/30/18 22:54 Not Reportable 09/30/18 22:54 Not Reportable 09/30/18 22:54 Not Reportable 09/30/18 22:54 Not Reportable 09/30/18 22:54 Not Reportable 09/30/18 22:54 Not Reportable 09/30/18 22:54 Not Reportable 09/30/18 22:54 Not Reportable 09/30/18 22:54 Not Reportable 09/30/18 22:54 Not Reportable 09/30/18 22:54 Not Reportable 09/30/18 22:54 Not Reportable 09/30/18 22:54 Not Reportable 09/30/18 22:54 Not Reportable 09/30/18 22:54 Not Reportable 09/30/18 22:54 Acanthocytes (Spur) Not Reportable 09/30/18 22:54 Rouleaux Not Reportable 09/30/18 22:54 Not Reportable 09/30/18 22:54 Not Reportable 09/30/18 22:54 Not Reportable 09/30/18 22:54 Not Reportable 09/30/18 22:54 Hem Pathologist Commnt No 09/30/18 22:54 PT 14.0 Sec. (12.2-14.9) 09/30/18 22:54 INR 1.02 (0.87-1.13) 09/30/18 22:54 APTT 28.1 Sec. (24.2-36.6) 09/30/18 22:54 15.4 Sec. (15.1-19.6) 09/30/18 22:54 Sodium 135 mmol/L (137-145) L 10/02/18 05:27 Potassium 4.0 mmol/L (3.6-5.0) 10/02/18 05:27 Chloride 98.0 mmol/L (98-107) 10/02/18 05:27 Carbon Dioxide 25 mmol/L (22-30) 10/02/18 05:27 16 mmol/L 10/02/18 05:27 BUN 18 mg/dL (9-20) 10/02/18 05:27 0.8 mg/dL (0.8-1.5) 10/02/18 05:27 Estimated GFR > 60 ml/min 10/02/18 05:27 23 % 10/02/18 05:27 Glucose 164 mg/dL (75-100) H 10/02/18 05:27 POC Glucose 102 (70-105) 10/02/18 12:18 5.3 % (4-6) 10/01/18 04:00 Calcium 8.4 mg/dL (8.4-10.2) 10/02/18 05:27 Phosphorus 2.20 mg/dL (2.5-4.5) L 10/01/18 18:30 Magnesium 1.80 mg/dL (1.7-2.3) 10/01/18 18:30 0.70 mg/dL (0.1-1.2) 10/01/18 00:09 < 0.2 mg/dL (0-0.2) 10/01/18 00:09 0.5 mg/dL 10/01/18 00:09 AST 15 units/L (5-40) 10/01/18 00:09 ALT 11 units/L (7-56) 10/01/18 00:09 100 units/L (35-129) 10/01/18 00:09 196 units/L (55-170) H 10/01/18 00:09 < 0.010 ng/mL (0.00-0.029) 09/30/18 22:54 NT-Pro-B Natriuret Pep 93.40 pg/mL (0-900) 10/01/18 00:09 7.5 g/dL (6.3-8.2) 10/01/18 00:09 3.8 g/dL (3.9-5) L 10/01/18 00:09 1.0 % 10/01/18 00:09 Triglycerides 54 mg/dL (2-149) 10/02/18 05:27 Cholesterol 142 mg/dL (50-199) 10/02/18 05:27 89 mg/dL (50-130) 10/02/18 05:27 47 mg/dL (40-59) 10/02/18 05:27 3.02 % 10/02/18 05:27 Presumptive negative 10/01/18 04:20 Presumptive negative 10/01/18 04:20 Ur Barbiturates Screen Presumptive negative 10/01/18 04:20 Ur Phencyclidine Scrn Presumptive negative 10/01/18 04:20 Ur Amphetamines Screen Presumptive negative 10/01/18 04:20 U Benzodiazepines Scrn Presumptive negative 10/01/18 04:20 Presumptive positive 10/01/18 04:20 U Marijuana (THC) Screen Presumptive negative 10/01/18 04:20 Disclamer 10/01/18 04:20 Active Medications - Current Medications Current Medications: Generic Name Dose Route Start Last Admin Trade Name Freq PRN Reason Stop Dose Admin Acetaminophen 650 mg 10/01/18 02:02 Tylenol PO Q4H PRN Pain MILD(1-3)/Fever >100.5/ELDER Albuterol 2.5 mg 10/01/18 02:02 Proventil IH Q3HRT PRN Shortness Of Breath Apixaban 5 mg 10/01/18 10:00 10/01/18 22:36 Eliquis PO 5 mg Q12HR JESSA Administration Protocol Arformoterol Tartrate 15 mcg 10/01/18 20:00 10/02/18 14:07 Brovana Nebu IH Not Given Q12HRT JESSA Budesonide 0.5 mg 10/01/18 08:00 10/02/18 14:07 Pulmicort IH Not Given Q12HRT JESSA Dextrose 50 ml 10/01/18 03:17 D50w (25gm) Syringe IV PRN PRN Hypoglycemia Guaifenesin 600 mg 10/01/18 03:00 10/01/18 22:36 Mucinex Er PO 600 mg BID JESSA Administration Hydralazine HCl 10 mg 10/01/18 03:04 Apresoline IV Q4H PRN Blood Pressure Levofloxacin/Dextrose 500 mg in 100 mls @ 100 mls/hr 10/01/18 10:00 10/01/18 14:11 Levaquin 500mg/100ml IV 100 mls/hr Q24HR JESSA Administration Protocol Insulin Human Lispro 0 unit 10/01/18 07:30 10/02/18 12:27 Humalog SUB-Q Not Given ACHS [facility] Protocol Lorazepam 1 mg 10/01/18 10:55 10/02/18 08:31 Ativan IV 1 mg Q4H PRN Administration anxiety or claustrophobia Methylprednisolone Sodium Succinate 60 mg 10/01/18 03:00 10/02/18 10:26 Solu-Medrol IV Not Given Q6H JESSA Ondansetron HCl 4 mg 10/01/18 02:02 Zofran IV Q8H PRN Nausea And Vomiting Pravastatin Sodium 40 mg 10/01/18 22:00 10/01/18 22:36 Pravachol PO 40 mg QHS JESSA Administration Sodium Chloride 10 ml 10/01/18 10:00 10/01/18 10:11 Sodium Chloride Flush Syringe 10 Ml IV 10 ml BID JESSA Administration Sodium Chloride 10 ml 10/01/18 02:02 Sodium Chloride Flush Syringe 10 Ml IV PRN PRN LINE FLUSH Nutrition/Malnutrition Assess - Dietary Evaluation Nutrition/Malnutrition Findings: Nutrition Notes Start: 10/01/18 16:02 Freq: Status: Active Protocol: Document 10/01/18 16:02 RM (Rec: 10/01/18 16:04 [id number]) Nutrition Notes Need for Assessment generated from: MD Order Initial or Follow up Brief Note Current Diagnosis COPD,Diabetes,Hyperlipidemia Other Pertinent Diagnosis Hx cocaine abuse, Fluid overload Subjective/Other Information Consulted for nutrition recommendations and CVA diet education. Pt asleep at time of visit. Nutrition Intervention Follow-Up By: 10/02/18 Additional Comments Follow for nutrition recommendations, CVA diet education
--- NOTE | 2018-10-02 15:06 | Consultation ---
History of Present Illness Consult date: 10/02/18 Requesting physician: PEYMAN ZURITA Consult reason: other (nsvt) History of present illness: The pt is a 58 YO male with a past medical history of CVA with residual left- sided weakness, PSVT, PACs, PVCs, PE in 2015, anticoagulated with Eliquis, HTN, HLP, tobacco use. He is followed in our office by Dr. Reed. He presented with c/o progressively worsening left-sided weakness and generalized fatigue for 1 week prior to arrival. He states that since his CVA in 2016, he has had left- sided weakness but his baseline weakness worsened over the past week. He denies any cardiac complaints, including chest pain, palpitations, n/v, diaphoresis, dizziness or syncope. He was noted to have NSVT on telemetry, longest run was 11 beats so far, and thus cardiology has been consulted. Echo done 08/2017 showed EF 55-60%, no significant valvular abnormalities. Lexiscan MPI stress test done 02/2016 showed fixed defects, no significant ischemia, EF 61%. Past History Past Medical History: hypertension, hyperlipidemia, pulmonary embolism (anticoagulated on Eliquis), stroke (02/2016 L MCA on MRI, left sidedn weakness) Social history: smoking (smokes less than half a pack per day) Family history: no significant family history Medications and Allergies Allergies Allergy/AdvReac Type Severity Reaction Status Date / Time No Known Allergies Allergy Verified 01/06/14 14:00 Home Medications Medication Instructions Recorded Confirmed Last Taken Type ALBUTEROL Inhaler(NF) [VENTOLIN 1 puff IH Q4H PRN #1 inha 06/03/18 10/01/18 Unknown Rx Inhaler(NF)] Benzonatate [Tessalon Perles] 100 mg PO Q8HR #30 capsule 06/03/18 10/01/18 Unknown Rx Prednisone [predniSONE 5 mg (6-Day 5 mg PO .TAPER #1 tab.ds.pk 06/03/18 10/01/18 Unknown Rx Pack, 21 Tabs)] Tamsulosin [Flomax] 0.4 mg PO QDAY #30 capsule 06/03/18 10/01/18 Unknown Rx guaiFENesin [Robitussin] 200 mg PO Q6H PRN #120 ml 06/03/18 10/01/18 Unknown Rx Active Meds: Active Medications Acetaminophen (Tylenol) 650 mg PO Q4H PRN PRN Reason: Pain MILD(1-3)/Fever >100.5/ELDER Albuterol (Proventil) 2.5 mg IH Q3HRT PRN PRN Reason: Shortness Of Breath Apixaban (Eliquis) 5 mg PO Q12HR PENDING SALE TO [facility]; Protocol Last Admin: 10/01/18 22:36 Dose: 5 mg Documented by: Arformoterol Tartrate (Brovana Nebu) 15 mcg IH Q12HRT PENDING SALE TO [facility] Last Admin: 10/02/18 14:07 Dose: Not Given Documented by: Budesonide (Pulmicort) 0.5 mg IH Q12HRT PENDING SALE TO [facility] Last Admin: 10/02/18 14:07 Dose: Not Given Documented by: Dextrose (D50w (25gm) Syringe) 50 ml IV PRN PRN PRN Reason: Hypoglycemia Guaifenesin (Mucinex Er) 600 mg PO BID PENDING SALE TO [facility] Last Admin: 10/01/18 22:36 Dose: 600 mg Documented by: Hydralazine HCl (Apresoline) 10 mg IV Q4H PRN PRN Reason: Blood Pressure Levofloxacin/Dextrose (Levaquin 500mg/100ml) 500 mg in 100 mls @ 100 mls/hr IV Q24HR PENDING SALE TO [facility]; Protocol Last Admin: 10/01/18 14:11 Dose: 100 mls/hr Documented by: Insulin Human Lispro (Humalog) 0 unit SUB-Q ACHS PENDING SALE TO [facility]; Protocol Last Admin: 10/02/18 12:27 Dose: Not Given Documented by: Lorazepam (Ativan) 1 mg IV Q4H PRN PRN Reason: anxiety or claustrophobia Last Admin: 10/02/18 08:31 Dose: 1 mg Documented by: Methylprednisolone Sodium Succinate (Solu-Medrol) 60 mg IV Q6H PENDING SALE TO [facility] Last Admin: 10/02/18 10:26 Dose: Not Given Documented by: Ondansetron HCl (Zofran) 4 mg IV Q8H PRN PRN Reason: Nausea And Vomiting Pravastatin Sodium (Pravachol) 40 mg PO QHS PENDING SALE TO [facility] Last Admin: 10/01/18 22:36 Dose: 40 mg Documented by: Sodium Chloride (Sodium Chloride Flush Syringe 10 Ml) 10 ml IV BID PENDING SALE TO [facility] Last Admin: 10/01/18 10:11 Dose: 10 ml Documented by: Sodium Chloride (Sodium Chloride Flush Syringe 10 Ml) 10 ml IV PRN PRN PRN Reason: LINE FLUSH Review of Systems Constitutional: fatigue, weakness (left sided), no weight loss, no weight gain, no fever, no chills, no sweats Ears, nose, mouth and throat: no ear pain, no nose pain, no sinus pressure, no sinus pain Cardiovascular: no chest pain, no orthopnea, no palpitations, no rapid/irregular heart beat, no edema, no syncope, no lightheadedness, no shortness of breath, no dyspnea on exertion, no leg edema Respiratory: no cough, no shortness of breath, no dyspnea on exertion, no congestion, no wheezing, no pain on inspiration Gastrointestinal: no abdominal pain, no nausea, no vomiting, no diarrhea, no constipation, no change in bowel habits Genitourinary Male: no dysuria, no hematuria, no flank pain, no discharge, no urinary frequency, no urinary hesitancy Musculoskeletal: no neck stiffness, no neck pain, no shooting arm pain, no arm numbness/tingling, no low back pain, no shooting leg pain Integumentary: no rash, no pruritis, no redness, no sores, no wounds Neurological: no head injury, no paralysis, no weakness, no parathesias, no numbness, no tingling, no seizures, no syncope Psychiatric: no anxiety Endocrine: no cold intolerance, no heat intolerance Hematologic/Lymphatic: no easy bruising, no easy bleeding Allergic/Immunologic: no urticaria, no wheezing Physical Examination Vital Signs Temp Pulse Resp BP Pulse Ox 97.9 F 79 18 139/90 98 09/30/18 22:33 09/30/18 22:33 09/30/18 22:33 09/30/18 22:33 09/30/18 22:33 General appearance: no acute distress HEENT: Positive: PERRL, Normocephaly, Mucus Membranes Moist Neck: Positive: neck supple, trachea midline Cardiac: Positive: Reg Rate and Rhythm, S1/S2 Lungs: Positive: Decreased Breath Sounds Neuro: Positive: Weakness (left-sided) Abdomen: Positive: Soft. Negative: Tender Skin: Negative: Rash, Wound Musculoskeletal: No Pain Extremities: Absent: edema Results 10/02/18 05:27 10/02/18 05:27 Lipids 10/02/18 Range/Units 05:27 Triglycerides 54 (2-149) mg/dL Cholesterol 142 (50-199) mg/dL HDL Cholesterol 47 (40-59) mg/dL Cholesterol/HDL Ratio 3.02 % CBC 10/02/18 Range/Units 05:27 WBC 6.3 (4.5-11.0) K/mm3 RBC 3.93 (3.65-5.03) M/mm3 Hgb 14.1 (11.8-15.2) gm/dl Hct 41.5 (35.5-45.6) % Plt Count 243 (140-440) K/mm3 Lymph # 0.2 L (1.2-5.4) K/mm3 Marshall # 0.5 (0.0-0.8) K/mm3 Eos # 0.0 (0.0-0.4) K/mm3 Baso # 0.0 (0.0-0.1) K/mm3 Comprehensive Metabolic Panel 10/01/18 10/02/18 Range/Units 18:30 05:27 Sodium 140 135 L (137-145) mmol/L Potassium 4.2 4.0 (3.6-5.0) mmol/L Chloride 99.9 98.0 (98-107) mmol/L Carbon Dioxide 26 25 (22-30) mmol/L BUN 16 18 (9-20) mg/dL Creatinine 0.9 0.8 (0.8-1.5) mg/dL Glucose 171 H 164 H (75-100) mg/dL Calcium 9.5 8.4 (8.4-10.2) mg/dL - Imaging and Cardiology Echo: pending, report reviewed (08/2017 showed EF 55-60%, no significant valvular abnormalities. ) Holter: image reviewed EKG: report reviewed, image reviewed EKG interpretations - Telemetry EKG Rhythm: Sinus Rhythm - EKG Sinus rhythms and dysrhythmias: sinus rhythm Assessment and Plan Currently stable cardiac status. Neurology w/u in progress. Resume home Toprol XL 25mg daily and continue to monitor on telemetry. Await echo. The patient has been seen in conjunction with Dr. Huerta who agrees with the assessment and plan of care. - Patient Problems (1) Left-sided weakness Current Visit: Yes Status: Acute (2) History of CVA (cerebrovascular accident) Current Visit: Yes Status: Chronic (3) NSVT (nonsustained ventricular tachycardia) Current Visit: Yes Status: Acute (4) H/O paroxysmal supraventricular tachycardia Current Visit: Yes Status: Chronic (5) History of pulmonary embolism Current Visit: Yes Status: Chronic (6) HTN (hypertension) Current Visit: Yes Status: Chronic (7) Hyperlipidemia Current Visit: Yes Status: Chronic (8) Nicotine dependence Current Visit: Yes Status: Chronic
[2018-10-02] MEDS: TOPROL XL PO SCH (18:43)
[2018-10-02] MEDS: PRAVACHOL PO SCH (22:15)
[2018-10-03 07:17] LABS: BUN/Creatinine Ratio 27; Blood Urea Nitrogen 19 mg/dL (9-20); Calcium 7.9 mg/dL (8.4-10.2); Hemolysis Index 7
[2018-10-03] MEDS: TOPROL XL PO SCH (09:09)
[2018-10-03] MEDS: ELIQUIS PO SCH ×2 (09:09→22:30)
[2018-10-03] MEDS: HumaLOG SUB-Q SCH (09:11)
[2018-10-03] MEDS: LEVAQUIN 500MG/100ML 500 MG/100 ML BAG IV SCH (09:11)
[2018-10-03] MEDS: SODIUM CHLORIDE FLUSH SYRINGE 10 ML IV SCH (09:11)
[2018-10-03] MEDS: MUCINEX ER PO SCH ×2 (09:11→22:30)
[2018-10-03] MEDS: PULMICORT IH SCH ×2 (09:34→20:51)
[2018-10-03] MEDS: BROVANA NEBU IH SCH ×2 (09:34→20:51)
--- NOTE | 2018-10-03 10:20 | Progress Note ---
Assessment and Plan Currently stable cardiac status. Home Toprol XL resumed, no NSVT noted overnight. Echo reviewed - EF 45%, RA mod dilated, trace MR, trace TR, secundum ASD cannot be excluded. Cont present medical management at this time. Nothing further to add from cardiac perspective at this time. Will sign off. Recommend pt follow up in our office with Dr. Reed within 1-2 weeks of hospital discharge ([phone]). The patient has been seen in conjunction with Dr. Huerta who agrees with the assessment and plan of care. - Patient Problems (1) Left-sided weakness Current Visit: Yes Status: Acute (2) History of CVA (cerebrovascular accident) Current Visit: Yes Status: Chronic (3) NSVT (nonsustained ventricular tachycardia) Current Visit: Yes Status: Acute (4) H/O paroxysmal supraventricular tachycardia Current Visit: Yes Status: Chronic (5) History of pulmonary embolism Current Visit: Yes Status: Chronic (6) HTN (hypertension) Current Visit: Yes Status: Chronic (7) Hyperlipidemia Current Visit: Yes Status: Chronic (8) Nicotine dependence Current Visit: Yes Status: Chronic (9) ASD (atrial septal defect) Current Visit: Yes Status: Suspected Subjective Date of service: 10/03/18 Principal diagnosis: left-sided weakness; nsvt Interval history: pt resting comfortably in bed, states left sided weakness is improving. no current cardiac complaints. tele reviewed - in SR with no NSVT noted overnight. Objective Vital Signs Temp Pulse Pulse Pulse Resp Resp BP 10/03/18 09:46 68 20 10/03/18 09:34 59 L 18 10/03/18 09:24 73 10/03/18 09:09 73 108/68 10/03/18 08:00 73 10/03/18 07:31 98.4 F 57 L 18 108/68 10/03/18 05:23 97.7 F 10/03/18 05:22 64 18 111/73 10/02/18 23:28 97.7 F 10/02/18 23:27 76 18 125/76 10/02/18 20:51 67 16 10/02/18 20:43 64 16 10/02/18 19:49 98.4 F 10/02/18 19:48 77 18 110/70 10/02/18 18:43 59 L 120/80 10/02/18 16:31 97.9 F 59 L 18 120/80 10/02/18 16:00 10/02/18 12:14 97.9 F 68 18 135/96 Pulse Ox 10/03/18 09:46 10/03/18 09:34 10/03/18 09:24 10/03/18 09:09 10/03/18 08:00 10/03/18 07:31 95 10/03/18 05:23 10/03/18 05:22 96 10/02/18 23:28 10/02/18 23:27 95 10/02/18 20:51 10/02/18 20:43 10/02/18 19:49 10/02/18 19:48 90 10/02/18 18:43 10/02/18 16:31 94 10/02/18 16:00 96 10/02/18 12:14 96 - Physical Examination General: No Apparent Distress HEENT: Positive: PERRL, Normocephaly, Mucus Membranes Moist Neck: Positive: neck supple, trachea midline Cardiac: Positive: Reg Rate and Rhythm, S1/S2 Lungs: Positive: Decreased Breath Sounds Neuro: Positive: Weakness (left-sided) Abdomen: Positive: Soft. Negative: Tender Skin: Negative: Rash, Wound Musculoskeletal: No Pain Extremities: Absent: edema - Labs and Meds Comprehensive Metabolic Panel 10/03/18 Range/Units 05:36 Sodium 143 D (137-145) mmol/L Potassium 4.3 (3.6-5.0) mmol/L Chloride 107.4 H (98-107) mmol/L Carbon Dioxide 21 L (22-30) mmol/L BUN 19 (9-20) mg/dL Creatinine 0.7 L (0.8-1.5) mg/dL Glucose 134 H (75-100) mg/dL Calcium 7.9 L (8.4-10.2) mg/dL - Imaging and Cardiology EKG: report reviewed, image reviewed Echo: pending, report reviewed (08/2017 showed EF 55-60%, no significant valvular abnormalities. ) Holter: image reviewed - EKG Sinus rhythms and dysrhythmias: sinus rhythm
--- NOTE | 2018-10-03 12:24 | Progress Note ---
Assessment and Plan Assessment and plan: 58-year-old -[place] male with history of CVA (2016) with left sided weakness, cocaine abuse, tobacco abuse, COPD, HLD, DM, BPH, HTN, PE anticoagulated on Eliquis presents to [facility] ED with complaints of worsening left- sided weakness and dyspnea with exertion. CXR unrevealing for acute cardiopul monary abnormalities. CTA chest negative for PE. CT head did not reveal any acute intracranial abnormality, and showed stable irregular hypodense lesion of right arieto-occipital region consistent with encephalomalacia secondary to an old infarct or hemorrhage. Admitted to Telemetry for further evaluation. hx of CVA in 2016 AE COPD hx of COPD Fluid overload Neutropenia Hx of PE on Eliquis DM HTN HLD BPH Tobacco abuse Hx of cocaine abuse NSVT patient does not have stroke Plan: Continue supportive care Neuro checks per protocol Neurology following MRI negative for stroke cardiology consulted for NSVT Cont Levaquin 500 mg daily Scheduled DuoNebs and Pulmicort, albuterol when necessary Solu-Medrol 60 mg every 6 hours Mucinex Monitor CBC Resume Eliquis 5 mg twice a day Lasix 40mg BID x1 day Monitor BP IV hydralazine when necessary Counseled for smoking cessation refused nicotine patch Pravastatin 40 mg daily at bedtime Toxicology pending POC BG monitoring SSI Coverage HgbA1C pending DVT PPX on Eliquis and SCD's Patient stable, discharge orders put in but did not go because nobody to pick him up. History Interval history: Left sided weakness NSVT Hospitalist Physical - Physical exam Narrative exam: Gen: Not in acute distress, lying in bed, HEENT: Normocephalic, atraumatic Neck: supple, no JVD Heart: S1 and S2 irreg, no murmurs, rubs or gallop Lungs: Clear, no crackles, no wheeze Abd: soft, non tender, non distended, normal BS Ext: No edema, no clubbing, no cyanosis, Neuro: Awake,alert, oriented x 3, left hemiparesis,residual Psych:Normal mood - Constitutional Vitals: Temp Pulse Resp BP Pulse Ox 98.0 F 75 20 114/68 95 10/03/18 11:27 10/03/18 11:27 10/03/18 11:27 10/03/18 11:27 10/03/18 11:27 General appearance: Present: no acute distress Results - Labs CBC & Chem 7: 10/02/18 05:27 10/03/18 05:36 Labs: Laboratory Last Values WBC 6.3 K/mm3 (4.5-11.0) 10/02/18 05:27 RBC 3.93 M/mm3 (3.65-5.03) 10/02/18 05:27 Hgb 14.1 gm/dl (11.8-15.2) 10/02/18 05:27 Hct 41.5 % (35.5-45.6) 10/02/18 05:27 MCV 106 fl (84-94) H 10/02/18 05:27 MCH 36 pg (28-32) H 10/02/18 05:27 MCHC 34 % (32-34) 10/02/18 05:27 RDW 14.4 % (13.2-15.2) 10/02/18 05:27 Plt Count 243 K/mm3 (140-440) 10/02/18 05:27 Lymph % (Auto) 3.1 % (13.4-35.0) L 10/02/18 05:27 Stanley % (Auto) 8.7 % (0.0-7.3) H 10/02/18 05:27 Eos % (Auto) 0.0 % (0.0-4.3) 10/02/18 05:27 Baso % (Auto) 0.1 % (0.0-1.8) 10/02/18 05:27 Lymph # 0.2 K/mm3 (1.2-5.4) L 10/02/18 05:27 Stanley # 0.5 K/mm3 (0.0-0.8) 10/02/18 05:27 Eos # 0.0 K/mm3 (0.0-0.4) 10/02/18 05:27 Baso # 0.0 K/mm3 (0.0-0.1) 10/02/18 05:27 Add Manual Diff Complete 09/30/18 22:54 Total Counted 100 09/30/18 22:54 Seg Neutrophils % 88.1 % (40.0-70.0) H 10/02/18 05:27 Seg Neuts % (Manual) 39.0 % (40.0-70.0) L 09/30/18 22:54 0 % 09/30/18 22:54 44.0 % (13.4-35.0) H 09/30/18 22:54 Reactive Lymphs % (Man) 0 % 09/30/18 22:54 14.0 % (0.0-7.3) H 09/30/18 22:54 2.0 % (0.0-4.3) 09/30/18 22:54 1.0 % (0.0-1.8) 09/30/18 22:54 0 % 09/30/18 22:54 0 % 09/30/18 22:54 0 % 09/30/18 22:54 0 % 09/30/18 22:54 Nucleated RBC % Not Reportable 09/30/18 22:54 Seg Neutrophils # 5.5 K/mm3 (1.8-7.7) 10/02/18 05:27 Seg Neutrophils # Man 1.0 K/mm3 (1.8-7.7) L 09/30/18 22:54 Band Neutrophils # 0.0 K/mm3 09/30/18 22:54 1.1 K/mm3 (1.2-5.4) L 09/30/18 22:54 Abs React Lymphs (Man) 0.0 K/mm3 09/30/18 22:54 0.4 K/mm3 (0.0-0.8) 09/30/18 22:54 0.1 K/mm3 (0.0-0.4) 09/30/18 22:54 0.0 K/mm3 (0.0-0.1) 09/30/18 22:54 0.0 K/mm3 09/30/18 22:54 0.0 K/mm3 09/30/18 22:54 0.0 K/mm3 09/30/18 22:54 Blast Cells # 0.0 K/mm3 09/30/18 22:54 WBC Morphology Not Reportable 09/30/18 22:54 Hypersegmented Neuts Not Reportable 09/30/18 22:54 Hyposegmented Neuts Not Reportable 09/30/18 22:54 Hypogranular Neuts Not Reportable 09/30/18 22:54 Not Reportable 09/30/18 22:54 Not Reportable 09/30/18 22:54 Not Reportable 09/30/18 22:54 Not Reportable 09/30/18 22:54 Not Reportable 09/30/18 22:54 Not Reportable 09/30/18 22:54 Not Reportable 09/30/18 22:54 Not Reportable 09/30/18 22:54 Plt Clumps, EDTA Not Reportable 09/30/18 22:54 Not Reportable 09/30/18 22:54 Not Reportable 09/30/18 22:54 Not Reportable 09/30/18 22:54 Plt Morphology Comment Not Reportable 09/30/18 22:54 RBC Morphology Normal 09/30/18 22:54 Dimorphic RBCs Not Reportable 09/30/18 22:54 Not Reportable 09/30/18 22:54 Not Reportable 09/30/18 22:54 Not Reportable 09/30/18 22:54 Not Reportable 09/30/18 22:54 Not Reportable 09/30/18 22:54 Not Reportable 09/30/18 22:54 Not Reportable 09/30/18 22:54 Not Reportable 09/30/18 22:54 Not Reportable 09/30/18 22:54 Not Reportable 09/30/18 22:54 Not Reportable 09/30/18 22:54 Not Reportable 09/30/18 22:54 Not Reportable 09/30/18 22:54 Not Reportable 09/30/18 22:54 Not Reportable 09/30/18 22:54 Not Reportable 09/30/18 22:54 Not Reportable 09/30/18 22:54 Not Reportable 09/30/18 22:54 Not Reportable 09/30/18 22:54 Acanthocytes (Spur) Not Reportable 09/30/18 22:54 Rouleaux Not Reportable 09/30/18 22:54 Not Reportable 09/30/18 22:54 Not Reportable 09/30/18 22:54 Not Reportable 09/30/18 22:54 Not Reportable 09/30/18 22:54 Hem Pathologist Commnt No 09/30/18 22:54 PT 14.0 Sec. (12.2-14.9) 09/30/18 22:54 INR 1.02 (0.87-1.13) 09/30/18 22:54 APTT 28.1 Sec. (24.2-36.6) 09/30/18 22:54 15.4 Sec. (15.1-19.6) 09/30/18 22:54 Sodium 143 mmol/L (137-145) D 10/03/18 05:36 Potassium 4.3 mmol/L (3.6-5.0) 10/03/18 05:36 Chloride 107.4 mmol/L (98-107) H 10/03/18 05:36 Carbon Dioxide 21 mmol/L (22-30) L 10/03/18 05:36 19 mmol/L 10/03/18 05:36 BUN 19 mg/dL (9-20) 10/03/18 05:36 0.7 mg/dL (0.8-1.5) L 10/03/18 05:36 Estimated GFR > 60 ml/min 10/03/18 05:36 27 % 10/03/18 05:36 Glucose 134 mg/dL (75-100) H 10/03/18 05:36 POC Glucose 121 (70-105) H 10/03/18 11:34 5.3 % (4-6) 10/01/18 04:00 Calcium 7.9 mg/dL (8.4-10.2) L 10/03/18 05:36 Phosphorus 2.20 mg/dL (2.5-4.5) L 10/01/18 18:30 Magnesium 2.00 mg/dL (1.7-2.3) 10/03/18 05:36 0.70 mg/dL (0.1-1.2) 10/01/18 00:09 < 0.2 mg/dL (0-0.2) 10/01/18 00:09 0.5 mg/dL 10/01/18 00:09 AST 15 units/L (5-40) 10/01/18 00:09 ALT 11 units/L (7-56) 10/01/18 00:09 100 units/L (35-129) 10/01/18 00:09 196 units/L (55-170) H 10/01/18 00:09 < 0.010 ng/mL (0.00-0.029) 09/30/18 22:54 NT-Pro-B Natriuret Pep 93.40 pg/mL (0-900) 10/01/18 00:09 7.5 g/dL (6.3-8.2) 10/01/18 00:09 3.8 g/dL (3.9-5) L 10/01/18 00:09 1.0 % 10/01/18 00:09 Triglycerides 54 mg/dL (2-149) 10/02/18 05:27 Cholesterol 142 mg/dL (50-199) 10/02/18 05:27 89 mg/dL (50-130) 10/02/18 05:27 47 mg/dL (40-59) 10/02/18 05:27 3.02 % 10/02/18 05:27 Presumptive negative 10/01/18 04:20 Presumptive negative 10/01/18 04:20 Ur Barbiturates Screen Presumptive negative 10/01/18 04:20 Ur Phencyclidine Scrn Presumptive negative 10/01/18 04:20 Ur Amphetamines Screen Presumptive negative 10/01/18 04:20 U Benzodiazepines Scrn Presumptive negative 10/01/18 04:20 Presumptive positive 10/01/18 04:20 U Marijuana (THC) Screen Presumptive negative 10/01/18 04:20 Disclamer 10/01/18 04:20 Active Medications - Current Medications Current Medications: Generic Name Dose Route Start Last Admin Trade Name Freq PRN Reason Stop Dose Admin Acetaminophen 650 mg 10/01/18 02:02 Tylenol PO Q4H PRN Pain MILD(1-3)/Fever >100.5/ELDER Albuterol 2.5 mg 10/01/18 02:02 Proventil IH Q3HRT PRN Shortness Of Breath Apixaban 5 mg 10/01/18 10:00 10/03/18 09:09 Eliquis PO 5 mg Q12HR JESSA Administration Protocol Arformoterol Tartrate 15 mcg 10/01/18 20:00 10/03/18 09:34 Brovana Nebu IH 15 mcg Q12HRT JESSA Administration Budesonide 0.5 mg 10/01/18 08:00 10/03/18 09:34 Pulmicort IH 0.5 mg Q12HRT JESSA Administration Dextrose 50 ml 10/01/18 03:17 D50w (25gm) Syringe IV PRN PRN Hypoglycemia Guaifenesin 600 mg 10/01/18 03:00 10/03/18 09:11 Mucinex Er PO 600 mg BID JESSA Administration Levofloxacin/Dextrose 500 mg in 100 mls @ 100 mls/hr 10/01/18 10:00 10/03/18 09:11 Levaquin 500mg/100ml IV 100 mls/hr Q24HR JESSA Administration Protocol Insulin Human Lispro 0 unit 10/01/18 07:30 10/03/18 09:11 Humalog SUB-Q Not Given ACHS [facility] Protocol Lorazepam 1 mg 10/01/18 10:55 10/02/18 08:31 Ativan IV 1 mg Q4H PRN Administration anxiety or claustrophobia Methylprednisolone Sodium Succinate 60 mg 10/01/18 03:00 10/02/18 22:25 Solu-Medrol IV 60 mg Q6H JESSA Administration Metoprolol Succinate 25 mg 10/02/18 16:00 10/03/18 09:09 Toprol Xl PO 25 mg QDAY JESSA Administration Ondansetron HCl 4 mg 10/01/18 02:02 Zofran IV Q8H PRN Nausea And Vomiting Pravastatin Sodium 40 mg 10/01/18 22:00 10/02/18 22:15 Pravachol PO 40 mg QHS JESSA Administration Sodium Chloride 10 ml 10/01/18 10:00 10/03/18 09:11 Sodium Chloride Flush Syringe 10 Ml IV 10 ml BID JESSA Administration Sodium Chloride 10 ml 10/01/18 02:02 Sodium Chloride Flush Syringe 10 Ml IV PRN PRN LINE FLUSH Nutrition/Malnutrition Assess - Dietary Evaluation Nutrition/Malnutrition Findings: Nutrition Notes Start: 10/01/18 16:02 Freq: Status: Active Protocol: Document 10/02/18 15:58 RM (Rec: 10/02/18 16:01 RM [id number]) Nutrition Notes Initial or Follow up Brief Note Subjective/Other Information Pt asleep at time of visit. Pt tech unsure how much pt has been eating. Nutrition Intervention Follow-Up By: 10/03/18 Additional Comments Follow for PO intakes, CVA diet education
--- NOTE | 2018-10-03 14:02 | Discharge Summary ---
Providers - Providers Date of Admission: 10/01/18 02:02 Date of discharge: 10/03/18 Attending physician: PEYMAN ZURITA 10/01/18 00:01 Consult to Physician [CONS] Urgent Comment: Consulting Provider: BRO HARLEY Physician Instructions: Reason For Exam: worsened left sided weakness 10/01/18 02:02 Consult to Dietitian/Nutrition [CONS] Routine Physician Instructions: Reason For Exam: Reason for Consult: Nutrition Recommendations Reason for Consult: Diet education Occupational Therapy Evaluate and Treat [CONS] Routine Comment: Reason For Exam: Neuro deficits Physical Therapy Evaluation and Treat [CONS] Routine Comment: Reason For Exam: Neuro deficits 10/01/18 04:00 Consult to Physician [CONS] Routine Comment: Consulting Provider: NEIL JOHNSON Physician Instructions: Reason For Exam: tia/cva 10/01/18 07:48 Speech Therapy Evaluation and Treat [CONS] Routine Reason For Exam: possible stroke 10/02/18 14:15 Consult to Physician [CONS] Routine Comment: Consulting Provider: GORGE SWEENEY Physician Instructions: Reason For Exam: NSVT Primary care physician: CORRY KELSEY Hospitalization Condition: Fair Hospital course: 58-year-old -[place] male with history of CVA (2016) with left sided weakness, cocaine abuse, tobacco abuse, COPD, hyperlipidemia, diabetes,hyperte nsion, BPH, pulmonary embolism, anticoagulated on Eliquis presented to [facility] ED with complaints of worsening left-sided weakness and dyspnea with exertion. CXR unrevealing for acute cardiopulmonary abnormalities. CTA chest negative for PE. CT head did not reveal any acute intracranial abnormality. He was admitted.He was treated with Oxygen solu-medrol for COPD exacerbation. MRI Brain was negative for acute stroke. He improved in few days , weaned off Oxygen and discharged home on 10/03/18. Total time spent on discharge, 33 mins Disposition: [id number] HOME UNDER HOME HLTH - Discharge Diagnoses (1) COPD exacerbation Status: Acute (2) Acute metabolic encephalopathy Status: Acute (3) Acute respiratory failure with hypoxia Status: Acute (4) Cocaine abuse Status: Acute (5) NSVT (nonsustained ventricular tachycardia) Status: Acute (6) HTN (hypertension) Status: Chronic Qualifiers: Hypertension type: essential hypertension Qualified Code(s): I10 - Essential (primary) hypertension (7) History of CVA (cerebrovascular accident) Status: Chronic (8) History of pulmonary embolism Status: Chronic (9) Hyperlipidemia Status: Chronic Core Measure Documentation - Palliative Care Palliative Care/ Comfort Measures: Not Applicable - Core Measures Any of the following diagnoses?: none Exam - Constitutional Vitals: Temp Pulse Resp BP Pulse Ox 98.0 F 75 20 114/68 95 10/03/18 11:27 10/03/18 11:27 10/03/18 11:27 10/03/18 11:27 10/03/18 11:27 Plan Activity: advance as tolerated Diet: low fat, low cholesterol, low salt Additional Instructions: 1.Follow up with PCP in 1 week. 2.Follow up with Dr. Reed,Cardiology in 1 week Follow up with: CORRY KELSEY MD [Primary Care Provider] - 3-5 Days Prescriptions: Apixaban [Eliquis] 5 mg PO BID #60 tablet Metoprolol Xl [Metoprolol SUCCINATE ER TAB] 25 mg PO QDAY #30 tablet Prednisone [predniSONE 5 mg (6-Day Pack, 21 Tabs)] 5 mg PO .TAPER #1 tab.ds.pk
[2018-10-03] MEDS: PRAVACHOL PO SCH (22:30)
[2018-10-03] MEDS: SOLU-Medrol IV SCH (23:09)
[2018-10-04 08:15] VITALS: BP 100/59
[2018-10-04] MEDS: BROVANA NEBU IH SCH (09:17)
[2018-10-04] MEDS: PULMICORT IH SCH (09:17)
[2018-10-04] MEDS: TOPROL XL PO SCH (10:49)
[2018-10-04] MEDS: MUCINEX ER PO SCH (10:49)
[2018-10-04] MEDS: ELIQUIS PO SCH (10:50)
[2018-10-04] MEDS: LEVAQUIN 500MG/100ML 500 MG/100 ML BAG IV SCH (10:51)
[2018-10-04] MEDS: SOLU-Medrol IV SCH (10:51)
[2018-10-04] MEDS: SODIUM CHLORIDE FLUSH SYRINGE 10 ML IV SCH (10:52)
--- NOTE | 2018-10-04 11:06 | Progress Note ---
Assessment and Plan Continue current regimen. F/u with Dr. Reed in 1-2 weeks. Will need pharmacologic stress MPI at the office. - Patient Problems (1) Left-sided weakness Current Visit: Yes Status: Acute (2) NSVT (nonsustained ventricular tachycardia) Current Visit: Yes Status: Acute (3) H/O paroxysmal supraventricular tachycardia Current Visit: Yes Status: Chronic (4) HTN (hypertension) Current Visit: Yes Status: Chronic Qualifiers: Hypertension type: essential hypertension Qualified Code(s): I10 - Essential (primary) hypertension (5) History of CVA (cerebrovascular accident) Current Visit: Yes Status: Chronic (6) History of pulmonary embolism Current Visit: Yes Status: Chronic (7) ASD (atrial septal defect) Current Visit: Yes Status: Suspected Subjective Date of service: 10/04/18 Principal diagnosis: left-sided weakness; nsvt Interval history: No complaint. Brief NSVT last night. Objective Vital Signs Temp Pulse Pulse Resp Resp BP Pulse Ox 10/04/18 08:09 98.2 F 50 L 18 100/59 98 10/04/18 03:59 98.0 F 76 18 127/75 98 10/03/18 23:40 98.0 F 54 L 18 125/75 95 10/03/18 21:06 82 18 10/03/18 20:51 80 18 10/03/18 19:28 98.0 F 76 20 147/81 96 10/03/18 16:00 67 10/03/18 15:55 97.7 F 51 L 16 120/70 94 10/03/18 11:27 98.0 F 75 20 114/68 95 - Physical Examination General: No Apparent Distress HEENT: Positive: EOMI, Normocephaly, Mucus Membranes Moist Neck: Positive: neck supple, trachea midline Cardiac: Positive: Reg Rate and Rhythm, S1/S2 Lungs: Positive: clear to auscultation Neuro: Positive: Weakness (left-sided) Abdomen: Positive: Soft, Active Bowel Sounds. Negative: Tender Skin: Positive: Clear, Wound. Negative: Rash Musculoskeletal: Normal Range of Motion Extremities: Present: normal. Absent: edema - Imaging and Cardiology EKG: image reviewed Echo: report reviewed (08/2017 showed EF 55-60%, no significant valvular abnormalities. ) Holter: image reviewed - Telemetry EKG Rhythm: Sinus Rhythm - EKG Sinus rhythms and dysrhythmias: sinus rhythm Ventricular dysrhythmias: non-sustained ventricular
--- NOTE | 2018-10-04 11:46 | Event Note ---
Date: 10/04/18 Patient seen and examined today. Discharge home.
== END 2018-10-04 11:59 | disposition home health service (06) | DRG 191 ==
LOC: ED 22:26 → 4A 10-01 02:02
PROVIDERS: ADMIT Internal Medicine; ATTEND Internal Medicine
DX: J44.1 Chronic obstructive pulmonary disease with (acute) exacerbation (principal); I47.1 Supraventricular tachycardia; I69.354 Hemiplegia and hemiparesis following cerebral infarction affecting left non-dominant side; Q21.1 Atrial septal defect; E87.70 Fluid overload, unspecified; I50.9 Heart failure, unspecified; E78.5 Hyperlipidemia, unspecified; E11.9 Type 2 diabetes mellitus without complications; N40.0 Benign prostatic hyperplasia without lower urinary tract symptoms; F17.210 Nicotine dependence, cigarettes, uncomplicated; D70.9 Neutropenia, unspecified; G93.89 Other specified disorders of brain; I08.1 Rheumatic disorders of both mitral and tricuspid valves; Z86.711 Personal history of pulmonary embolism; Z79.01 Long term (current) use of anticoagulants
CPT/HCPCS: 36415; 70450; 70544; 70551; 71045; 71275; 80048; 80061; 80076; 80307; 82550; 82962; 83036; 83735; 83880; 84100; 84484; 85007; 85025; 85610; 85670; 85730; 93005; 93010; 93306; 94640; 96374; 99406; G0378; A9270-GY; J1815; J1940; J1956; J2060; J2920; J7040; Q9967

== ENCOUNTER 2021-05-27 17:01 | Inpatient (IN) | payer MEDICARE ==
[2021-05-27] MEDS ORDERED: SODIUM CHLORIDE 0.9% 1000 ML 1,000 ML IV ONE (17:54)
[2021-05-27] MEDS ORDERED: IPRATROPIUM/ALBUTEROL SULFATE 3 ML AMPUL.NEB IH ONE (17:54)
[2021-05-27] MEDS ORDERED: dexAMETHasone 4 MG/ML VIAL IV ONE (17:54)
--- NOTE | 2021-05-27 18:00 | Emergency Department Report ---
HPI - General Chief Complaint: Weakness Time Seen by Provider: 05/27/21 17:13 - HPI HPI: 60-year-old male with history of prior stroke with minimal left-sided deficits, PE on Eliquis, history of irregular heartbeat, and COPD presents complaining of 3 weeks of cough and generalized weakness which are not improving. The patient states that around 3 weeks ago he began to have a mild dry cough. Since then he has developed generalized weakness, malaise, and intermittent fevers and chills. He denies experiencing any chest pain or shortness of breath. He does have palpitations occasionally where he feels his heart beating. Because of his significant generalized weakness which has prevented him from being able to do his daily activities, he finally decided to get evaluated today. He is fully vaccinated against COVID-19 but has not yet received a booster. There are no known aggravating or alleviating factors. He denies any associated headache, vision change, neck pain, back pain, chest pain, new focal weakness, new sensory changes, new swelling, abdominal pain, nausea/vomiting, or any other complaints. ED Past Medical Hx - Past Medical History Previous Medical History?: Yes Hx Hypertension: Yes Hx CVA: Yes (02/2016 L MCA on MRI, left side weak) Hx Congestive Heart Failure: Yes Hx Diabetes: No Hx Pulmonary Embolism: Yes (CURRENTLY ON ELIQUIS) Hx Asthma: No Hx COPD: Yes (pt reports that he "thinks" he has COPD) Additional medical history: elevated cholesterol - Surgical History Past Surgical History?: No - Social History Smoking Status: Former Smoker Substance Use Type: None - Medications Home Medications: Home Medications Medication Instructions Recorded Confirmed Last Taken Type ALBUTEROL Inhaler(NF) [VENTOLIN 1 puff IH Q4H PRN #1 inha 06/03/18 10/01/18 Unknown Rx Inhaler(NF)] Benzonatate [Tessalon Perles] 100 mg PO Q8HR #30 capsule 06/03/18 10/01/18 Unknown Rx Tamsulosin [Flomax] 0.4 mg PO QDAY #30 capsule 06/03/18 10/01/18 Unknown Rx guaiFENesin [Robitussin] 200 mg PO Q6H PRN #120 ml 06/03/18 10/01/18 Unknown Rx Apixaban [Eliquis] 5 mg PO BID #60 tablet 10/03/18 Unknown Rx Metoprolol Xl [Metoprolol 25 mg PO QDAY #30 tablet 10/03/18 Unknown Rx SUCCINATE ER TAB] Prednisone [predniSONE 5 mg (6-Day 5 mg PO .TAPER #1 tab.ds.pk 10/03/18 Unknown Rx Pack, 21 Tabs)] ED Review of Systems ROS: Stated complaint: PT GEN WEAKNESS AND COUGH Other details as noted in HPI Comment: All other systems reviewed and negative Constitutional: chills, fever, malaise, weakness Eyes: denies: eye pain, vision change ENT: denies: throat pain, congestion Respiratory: cough. denies: shortness of breath Cardiovascular: palpitations. denies: chest pain, syncope Gastrointestinal: denies: abdominal pain, nausea, vomiting Genitourinary: denies: dysuria, frequency Musculoskeletal: denies: back pain, arthralgia Skin: denies: rash, lesions Neurological: denies: headache, weakness, numbness, paresthesias Physical Exam - Physical Exam Vital Signs: Vital Signs 05/27/21 05/27/21 17:24 17:26 Temperature 100.4 F H 100.4 F H Pulse Rate 163 H 101 H Respiratory 33 H 16 Rate Blood Pressure 122/72 Blood Pressure 124/75 [Left] O2 Sat by Pulse 94 97 Oximetry Physical Exam: GENERAL: Frail and elderly appearing male. No acute distress. HEAD: Normocephalic. No obvious signs of trauma. ENT: Very dry mucous membranes. EYES: Extraocular movements are intact. Pupils are equal round and reactive to light bilaterally NECK: Supple. Full ROM is intact. Trachea is midline. LUNGS: Tachypneic but not in respiratory distress. Equal chest rise bilate rally. Very decreased air movement throughout with faint end expiratory wheezing CARDIOVASCULAR: Tachycardic with regular rhythm. No murmurs or rubs. VASCULAR: Cap refill < 2 seconds. 1+ pitting edema of the bilateral lower extremities ABDOMEN: Abdomen is soft and nondistended. There is no significant tenderness, guarding or rebound. SKIN: Skin is warm and dry NEURO: Patient is awake, alert, and oriented. director it II-XII grossly intact. No focal deficits. Normal motor and sensory exam throughout. Normal speech. MUSCULOSKELETAL: No obvious deformities. No significant tenderness. Normal ROM throughout. BACK/SPINE: No costovertebral angle tenderness. ED Course Vital Signs 05/27/21 05/27/21 17:24 17:26 Temperature 100.4 F H 100.4 F H Pulse Rate 163 H 101 H Respiratory 33 H 16 Rate Blood Pressure 122/72 Blood Pressure 124/75 [Left] O2 Sat by Pulse 94 97 Oximetry ED Medical Decision Making - Lab Data Result diagrams: 05/27/21 19:39 05/27/21 17:57 Lab Results 05/27/21 05/27/21 05/27/21 Range/Units 17:50 17:57 17:57 WBC 1.4 L* (4.5-11.0) K/mm3 RBC 3.47 L (3.65-5.03) M/mm3 Hgb 12.7 (11.8-15.2) gm/dl Hct 38.1 (35.5-45.6) % MCV 110 H (84-94) fl MCH 37 H (28-32) pg MCHC 33 (32-34) % RDW 13.8 (13.2-15.2) % Plt Count 136 L (140-440) K/mm3 Add Manual Diff Complete Total Counted 50 Seg Neuts % (Manual) 48.0 (40.0-70.0) % Band Neutrophils % 0 % Lymphocytes % (Manual) 50.0 H (13.4-35.0) % Reactive Lymphs % (Man) 0 % Monocytes % (Manual) 2.0 (0.0-7.3) % Eosinophils % (Manual) 0 (0.0-4.3) % Basophils % (Manual) 0 (0.0-1.8) % Metamyelocytes % 0 % Myelocytes % 0 % Promyelocytes % 0 % Blast Cells % 0 % Nucleated RBC % Not Reportable Seg Neutrophils # Man 0.7 L (1.8-7.7) K/mm3 Band Neutrophils # 0.0 K/mm3 Lymphocytes # (Manual) 0.7 L (1.2-5.4) K/mm3 Abs React Lymphs (Man) 0.0 K/mm3 Monocytes # (Manual) 0.0 (0.0-0.8) K/mm3 Eosinophils # (Manual) 0.0 (0.0-0.4) K/mm3 Basophils # (Manual) 0.0 (0.0-0.1) K/mm3 Metamyelocytes # 0.0 K/mm3 Myelocytes # 0.0 K/mm3 Promyelocytes # 0.0 K/mm3 Blast Cells # 0.0 K/mm3 WBC Morphology Not Reportable Hypersegmented Neuts Not Reportable Hyposegmented Neuts Not Reportable Hypogranular Neuts Not Reportable Smudge Cells Not Reportable Toxic Granulation Not Reportable Toxic Vacuolation Not Reportable Dohle Bodies Not Reportable Pelger-Huet Anomaly Not Reportable Jay Rods Not Reportable Platelet Estimate Consistent w auto Clumped Platelets Not Reportable Plt Clumps, EDTA Not Reportable Large Platelets Few Giant Platelets Not Reportable Platelet Satelliting Not Reportable Plt Morphology Comment Not Reportable RBC Morphology Normal Dimorphic RBCs Not Reportable Polychromasia Not Reportable Hypochromasia Not Reportable Poikilocytosis Not Reportable Anisocytosis Not Reportable Microcytosis Not Reportable Macrocytosis Not Reportable Spherocytes Not Reportable Pappenheimer Bodies Not Reportable Sickle Cells Not Reportable Target Cells Not Reportable Tear Drop Cells Not Reportable Ovalocytes Not Reportable Helmet Cells Not Reportable [place] Bodies Not Reportable Cotton Rings Not Reportable [place] Cells Not Reportable Bite Cells Not Reportable Crenated Cell Not Reportable Elliptocytes Not Reportable Acanthocytes (Spur) Not Reportable Rouleaux Not Reportable Hemoglobin C Crystals Not Reportable Schistocytes Not Reportable Malaria parasites Not Reportable Chidi Bodies Not Reportable Hem Pathologist Commnt No PT (12.2-14.9) Sec. INR (0.87-1.13) APTT (24.2-36.6) Sec. Sodium (137-145) mmol/L Potassium (3.6-5.0) mmol/L Chloride (98-107) mmol/L Carbon Dioxide (22-30) mmol/L Anion Gap mmol/L BUN (9-20) mg/dL Creatinine (0.8-1.3) mg/dL Estimated GFR ml/min BUN/Creatinine Ratio % Glucose (75-100) mg/dL POC Glucose 95 (70-105) mg/dL Lactic Acid 1.30 (0.7-2.0) mmol/L Calcium (8.4-10.2) mg/dL Magnesium (1.7-2.3) mg/dL Total Bilirubin (0.1-1.2) mg/dL Direct Bilirubin (0-0.2) mg/dL Indirect Bilirubin mg/dL AST (5-40) units/L ALT (7-56) units/L Alkaline Phosphatase (35-129) units/L Troponin T (0.00-0.029) ng/mL NT-Pro-B Natriuret Pep (0-900) pg/mL Total Protein (6.3-8.2) g/dL Albumin (3.9-5) g/dL Albumin/Globulin Ratio % TSH (0.270-4.200) mlU/mL 05/27/21 05/27/21 05/27/21 Range/Units 17:57 17:57 17:57 WBC (4.5-11.0) K/mm3 RBC (3.65-5.03) M/mm3 Hgb (11.8-15.2) gm/dl Hct (35.5-45.6) % MCV (84-94) fl MCH (28-32) pg MCHC (32-34) % RDW (13.2-15.2) % Plt Count (140-440) K/mm3 Add Manual Diff Total Counted Seg Neuts % (Manual) (40.0-70.0) % Band Neutrophils % % Lymphocytes % (Manual) (13.4-35.0) % Reactive Lymphs % (Man) % Monocytes % (Manual) (0.0-7.3) % Eosinophils % (Manual) (0.0-4.3) % Basophils % (Manual) (0.0-1.8) % Metamyelocytes % % Myelocytes % % Promyelocytes % % Blast Cells % % Nucleated RBC % Seg Neutrophils # Man (1.8-7.7) K/mm3 Band Neutrophils # K/mm3 Lymphocytes # (Manual) (1.2-5.4) K/mm3 Abs React Lymphs (Man) K/mm3 Monocytes # (Manual) (0.0-0.8) K/mm3 Eosinophils # (Manual) (0.0-0.4) K/mm3 Basophils # (Manual) (0.0-0.1) K/mm3 Metamyelocytes # K/mm3 Myelocytes # K/mm3 Promyelocytes # K/mm3 Blast Cells # K/mm3 WBC Morphology Hypersegmented Neuts Hyposegmented Neuts Hypogranular Neuts Smudge Cells Toxic Granulation Toxic Vacuolation Dohle Bodies Pelger-Huet Anomaly Jay Rods Platelet Estimate Clumped Platelets Plt Clumps, EDTA Large Platelets Giant Platelets Platelet Satelliting Plt Morphology Comment RBC Morphology Dimorphic RBCs Polychromasia Hypochromasia Poikilocytosis Anisocytosis Microcytosis Macrocytosis Spherocytes Pappenheimer Bodies Sickle Cells Target Cells Tear Drop Cells Ovalocytes Helmet Cells Cent[place] Bodies Cotton Rings [place] Cells Bite Cells Crenated Cell Elliptocytes Acanthocytes (Spur) Rouleaux Hemoglobin C Crystals Schistocytes Malaria parasites Chidi Bodies Hem Pathologist Commnt PT 13.9 (12.2-14.9) Sec. INR 0.96 (0.87-1.13) APTT 32.6 (24.2-36.6) Sec. Sodium 126 L (137-145) mmol/L Potassium 3.7 (3.6-5.0) mmol/L Chloride 93.0 L (98-107) mmol/L Carbon Dioxide 24 (22-30) mmol/L Anion Gap 13 mmol/L BUN 12 (9-20) mg/dL Creatinine 0.9 (0.8-1.3) mg/dL Estimated GFR > 60 ml/min BUN/Creatinine Ratio 13 % Glucose 104 H (75-100) mg/dL POC Glucose (70-105) mg/dL Lactic Acid (0.7-2.0) mmol/L Calcium 8.3 L (8.4-10.2) mg/dL Magnesium 1.70 (1.7-2.3) mg/dL Total Bilirubin 0.60 (0.1-1.2) mg/dL Direct Bilirubin < 0.2 (0-0.2) mg/dL Indirect Bilirubin 0.4 mg/dL AST 19 (5-40) units/L ALT 11 (7-56) units/L Alkaline Phosphatase 93 (35-129) units/L Troponin T < 0.010 (0.00-0.029) ng/mL NT-Pro-B Natriuret Pep 363.3 (0-900) pg/mL Total Protein 7.4 (6.3-8.2) g/dL Albumin 3.8 L (3.9-5) g/dL Albumin/Globulin Ratio 1.1 % TSH 1.110 (0.270-4.200) mlU/mL - EKG Data -: EKG Interpreted by Ca - EKG Data 05/27/21 19:07 EKG #1 taken at 1712 Difficult to interpret given wandering baseline and poor EKG quality. However appears to show sinus rhythm with intermittent bouts of SVT. EKG #2 taken at 1807 Normal sinus rhythm. Ventricular bigeminy. Left axis deviation. Left anterior fascicular block. First-degree AV block. No significant ST segment or T wave abnormalities. - Radiology Data Radiology results: report reviewed - Medical Decision Making 60-year-old male with history of prior stroke, PE on Eliquis, irregular heartbeat, and COPD presents with 3 weeks of URI symptoms including cough and generalized weakness is noted to be febrile with a temp of 100.4. He has normal blood pressure. His oxygen saturation is in the low 90s. His heart rate is variable, ranging from the 80s all the way up into the 180s. Physical examination reveals an elderly male who is tachypneic but not in respiratory distress. He has dry mucous membranes. Lung auscultation reveals severely decreased air movement throughout with end expiratory wheezing. He has a nonfocal neurologic exam. EKG reveals what appears to be ventricular bigeminy with bouts of SVT versus other tachyarrhythmia. While I was in the room with the patient, his oxygen saturation dropped to 89% on room air. Because I suspect that this may be related to an underlying respiratory cause I have ordered duo nebs, 8 mg of Decadron, 1 L of IV fluids, and full sepsis order set with labs, chest x-ray. Chest x-ray shows no acute abnormalities. Labs reveal leukopenia with white blood cell count of 1.4. There is no signi ficant anemia. There is thrombocytopenia with platelets of 136. Chemistry panel reveals sodium of 126 but normal kidney function and no significant electrolyte abnormalities. Magnesium levels normal. Troponin is negative. BNP is within normal limits. On repeat assessment at 640 after breathing treatments, lung auscultation reveals greatly improved air movement. The patient reports that he feels much better after the breathing treatments. Given the patient's hyponatremia I have ordered an additional 500 cc of IV fluids. I will order antibiotics for suspected pneumonia given his leukopenia. Because the patient continues to have bouts of what appears to be SVT I have consulted cardiology. At 715 the nurse alerted me that it appears that his tachyarrhythmia has become persistent. While in the room, the patient's SVT appears to be more persistent although it is not entirely constant. I have ordered 10 mg of diltiazem. I spoke with Dr. Cleveland of cardiology regarding the case. He recommends administration of 150 milligrams of amiodarone over 10 minutes followed by an amiodarone drip at 1 mg per minute. At 730, the patient revealed that in fact he has been out of his Eliquis and has not been taking any anticoagulation for the past 2 months despite having a known PE. I have therefore ordered initiation of a heparin drip and ordered a CT angiogram of the chest to assess for evidence of pneumonia versus pulmonary embolism versus other abnormality I spoke with Dr. Brock, the on-call hospitalist regarding the case and he accepts the patient for admission will assume care. He understands that CT of the chest is still pending. Critical Care Time: Yes Critical care time in (mins) excluding proc time.: 55 Critical care attestation.: If time is entered above; I have spent that time in minutes in the direct care of this critically ill patient, excluding procedure time. Critical care time was spent in the evaluation/assessment, work-up, and management of hypoxic respiratory failure requiring duo nebs, steroids, supplemental oxygen as well as arrhythmia requiring IV amiodarone and amiodarone drip, as well as consultation with specialist and repeat reassessment and reevaluation ED Disposition Clinical Impression: COPD exacerbation, Suspected COVID-19 virus infection, Hypoxia, SVT (supraventricular tachycardia), Leukopenia, Hyponatremia, Patient noncompliant with anticoagulant medication, History of pulmonary embolism, History of CVA (cerebrovascular accident) Disposition: 09 ADMITTED INPATIENT Is pt being admited?: Yes Condition: Stable Instructions: Chronic Obstructive Pulmonary Disease (ED)
[2021-05-27 18:19] LABS: Hematocrit 38.1 % (35.5-45.6); Hemoglobin 12.7 gm/dl (11.8-15.2); Mean Corpuscular HGB Conc 33 % (32-34); Mean Corpuscular Volume 110 fl (84-94); Platelet Count 136 K/mm3 (140-440); Red Blood Count 3.47 M/mm3 (3.65-5.03); Red Cell Distribution Width 13.8 % (13.2-15.2)
[2021-05-27 18:29] LABS: INR 0.96 (0.87-1.13)
[2021-05-27 18:30] LABS: Partial Thromboplastin Time 32.6 Sec. (24.2-36.6)
--- NOTE | 2021-05-27 18:31 | XRay Report ---
CHEST 1 VIEW INDICATION: cough. COMPARISON: 09/30/2018 FINDINGS: Support devices: None. Heart: Normal. Lungs/Pleura: No acute pulmonary or pleural findings. IMPRESSION: 1. No acute findings. Signer Name: Cong Ken MD Signed: 05/27/2021 6:27 PM Workstation Name: [id number]
[2021-05-27 18:43] LABS: Alanine Aminotransferase 11 units/L (7-56); Albumin 3.8 g/dL (3.9-5); BUN/Creatinine Ratio 13; Blood Urea Nitrogen 12 mg/dL (9-20); Calcium 8.3 mg/dL (8.4-10.2); Hemolysis Index 5
[2021-05-27 18:48] LABS: Bilirubin,Direct < 0.2 mg/dL (0-0.2)
[2021-05-27] MEDS ORDERED: SODIUM CHLORIDE 0.9% 500 ML 500 ML IV ONE (18:51)
[2021-05-27 18:57] LABS: Total Cells Counted 50
[2021-05-27] MEDS ORDERED: cefTRIAXone/NS 1 GM/50 ML 1 GM/50 ML BAG IV ONE (18:57)
[2021-05-27] MEDS ORDERED: AZITHROMYCIN/NS 500 MG/250 ML 500 MG/250 ML BAG IV ONE (18:58)
[2021-05-27 19:01] LABS: Basophils % (Manual) 0 % (0.0-1.8); Eosinophils % (Manual) 0 % (0.0-4.3); Large Platelets Few; Platelet Estimate Consistent w Auto; RBC Morphology Normal
[2021-05-27] MEDS ORDERED: POTASSIUM CHLORIDE ER 20 MEQ TAB PO ONE (19:06)
[2021-05-27] MEDS ORDERED: dilTIAZem 25 MG/5 ML INJ IV ONE (19:15)
[2021-05-27] MEDS ORDERED: dilTIAZem 25 MG/5 ML INJ ONE (19:23)
[2021-05-27] MEDS ORDERED: dilTIAZem/D5W 100 MG/100 ML BAG IV ONE (19:23)
[2021-05-27] MEDS ORDERED: AMIODARONE 150 MG in DEXTROSE 5% IN WATER 97 ML IV ONE (19:24)
[2021-05-27] MEDS ORDERED: HEPARIN/ 0.45% NACL DRIP 25,000 UNIT/500 ML BAG ONE (19:32)
[2021-05-27] MEDS ORDERED: HEPARIN 10,000 UNITS/10 ML VIAL IV ONE (19:39)
[2021-05-27] MEDS ORDERED: HEPARIN 10,000 UNITS/10 ML VIAL IV PRN (19:39)
[2021-05-27] MEDS ORDERED: HEPARIN/ 0.45% NACL DRIP 25,000 UNIT/500 ML BAG IV SCH (20:00)
[2021-05-27] MEDS: AMIODARONE 900 MG in DEXTROSE 5% IN WATER 482 ML IV SCH (20:05)
[2021-05-27 20:58] LABS: Partial Thromboplastin Time 34.7 Sec. (24.2-36.6)
--- NOTE | 2021-05-27 21:55 | History and Physical Report ---
History of Present Illness Date of examination: 05/27/21 Date of admission: May 27, 2021 Chief complaint: Shortness of breath for 2 days History of present illness: 60-year-old male with recent history of pulmonary thromboembolism, stroke left hemiparesis, atrial fibrillation on Eliquis comes in for shortness of breath and cough for 3 weeks. More so for the last 2 days. Patient stated that 3 weeks ago he began to have a mild cough and shortness of breath which is progressively becoming worse. Shortness of breath on minimal exertion and also orthopnea. Is fully vaccinated against Covid. Did not get through the blister. No aggravating or alleviating factors except exertion. No fever or chills. Former smoker. - Past Medical History --Previous Medical History?: Yes --Hypertension: Yes --CVA: Yes (02/2016 L MCA on MRI, left side weak) --Congestive Heart Failure: Yes --Pulmonary Embolism: Yes (CURRENTLY ON ELIQUIS) --COPD: Yes (pt reports that he "thinks" he has COPD) --Additional medical history: elevated cholesterol - Surgical History --Past Surgical History?: No - Social History Smoking Status: Former Smoker Substance Use Type: None - Medications Home Medications: Home Medications Medication Instructions Recorded Confirmed Last Taken Type ALBUTEROL Inhaler(NF) [VENTOLIN 1 puff IH Q4H PRN #1 inha 06/03/18 10/01/18 Unknown Rx Inhaler(: NF)] Benzonatate [Tessalon Perles] 100 mg PO Q8HR #30 capsule 06/03/18 10/01/18 Unknown Rx Tamsulosin [Flomax] 0.4 mg PO QDAY #30 capsule 06/03/18 10/01/18 Unknown Rx guaiFENesin [Robitussin] 200 mg PO Q6H PRN #120 ml 06/03/18 10/01/18 Unknown Rx Apixaban [Eliquis] 5 mg PO BID #60 tablet 10/03/18 Unknown Rx Metoprolol Xl [Metoprolol 25 mg PO QDAY #30 tablet 10/03/18 Unknown Rx SUCCINATE ER TAB] Prednisone [predniSONE 5 mg (6-Day 5 mg PO .TAPER #1 tab.ds.pk 10/03/18 Unknown Rx Pack, 21 Tabs)] Review of Systems ROS: Stated complaint: PT GEN WEAKNESS AND COUGH Other details as noted in HPI Comment: All other systems reviewed and negative Constitutional: chills, fever, malaise, weakness Eyes: denies: eye pain, vision change ENT: denies: throat pain, congestion Respiratory: cough. denies: shortness of breath Cardiovascular: palpitations. denies: chest pain, syncope Gastrointestinal: denies: abdominal pain, nausea, vomiting Genitourinary: denies: dysuria, frequency Musculoskeletal: denies: back pain, arthralgia Skin: denies: rash, lesions Neurological: denies: headache, weakness, numbness, paresthesias History of. Pulmonary embolism Medications and Allergies Allergies Allergy/AdvReac Type Severity Reaction Status Date / Time No Known Allergies Allergy Verified 01/06/14 14:00 Home Medications Medication Instructions Recorded Confirmed Last Taken Type ALBUTEROL Inhaler(NF) [VENTOLIN 1 puff IH Q4H PRN #1 inha 06/03/18 10/01/18 Unknown Rx Inhaler(NF)] Benzonatate [Tessalon Perles] 100 mg PO Q8HR #30 capsule 06/03/18 10/01/18 Unknown Rx Tamsulosin [Flomax] 0.4 mg PO QDAY #30 capsule 06/03/18 10/01/18 Unknown Rx guaiFENesin [Robitussin] 200 mg PO Q6H PRN #120 ml 06/03/18 10/01/18 Unknown Rx Apixaban [Eliquis] 5 mg PO BID #60 tablet 10/03/18 Unknown Rx Metoprolol Xl [Metoprolol 25 mg PO QDAY #30 tablet 10/03/18 Unknown Rx SUCCINATE ER TAB] Prednisone [predniSONE 5 mg (6-Day 5 mg PO .TAPER #1 tab.ds.pk 10/03/18 Unknown Rx Pack, 21 Tabs)] Active Meds: Active Medications Heparin Sodium (Porcine) (Heparin 10,000 Units/10 Ml Vial) 2,900 unit 40 unit/kg (2900 unit) IV Q6H PRN PRN Reason: Anti-Xa Assay < 0.1 units/ml Amiodarone HCl 900 mg/ (Dextrose) 500 mls @ 33.333 mls/hr IV DIRECT JESSA Last Admin: 05/27/21 20:05 Dose: 1 mg/min, 33.333 mls/hr Heparin Sodium/Sodium Chloride (Heparin/ 0.45% Nacl-25,000 Unit/500 Ml) 25,000 unit in 500 mls @ 21 mls/hr IV TITR JESSA; Protocol Last Admin: 05/27/21 20:16 Dose: 1,050 units/hr, 21 mls/hr Exam - Constitutional Vitals: Temp Pulse Resp BP Pulse Ox 100.4 F H 86 23 91/54 93 05/27/21 17:26 05/27/21 21:30 05/27/21 21:30 05/27/21 21:30 05/27/21 21:30 General appearance: Present: no acute distress, well-nourished - EENT Eyes: Present: PERRL ENT: hearing intact, clear oral mucosa - Neck Neck: Present: supple, normal ROM - Respiratory Respiratory effort: normal Respiratory: bilateral: CTA, rhonchi, wheezing - Cardiovascular Heart rate: 140 Rhythm: irregularly irregular Heart Sounds: Present: S1 & S2. Absent: rub, click - Extremities Extremities: pulses symmetrical, No edema Peripheral Pulses: within normal limits - Abdominal General gastrointestinal: Present: soft, non-tender, non-distended, normal bowel sounds Male genitourinary: Present: normal - Integumentary Integumentary: Present: clear, warm, dry - Musculoskeletal Musculoskeletal: gait normal, strength equal bilaterally - Psychiatric Psychiatric: appropriate mood/affect, intact judgment & insight - Neurologic Neurologic: CNII-XII intact, moves all extremities HEART Score - HEART Score History: Moderately suspicious Age: 45-65 Risk factors: > 3 risk factors or hx of atherosclerotic disease Troponin: Troponin T < 0.010 ng/mL (0.00-0.029) 05/27/21 21:00 Troponin: < normal limit - Critical Actions Critical Actions: 4-6 pts:12-16.6% risk of adverse cardiac event. Should be admitted Results - Labs CBC & Chem 7: 05/28/21 05:58 05/28/21 05:58 Labs: Laboratory Last Values WBC 1.4 K/mm3 (4.5-11.0) L* 05/27/21 17:57 RBC 3.47 M/mm3 (3.65-5.03) L 05/27/21 17:57 Hgb 12.7 gm/dl (11.8-15.2) 05/27/21 17:57 Hct 38.1 % (35.5-45.6) 05/27/21 17:57 MCV 110 fl (84-94) H 05/27/21 17:57 MCH 37 pg (28-32) H 05/27/21 17:57 MCHC 33 % (32-34) 05/27/21 17:57 RDW 13.8 % (13.2-15.2) 05/27/21 17:57 Plt Count 124 K/mm3 (140-440) L 05/27/21 19:39 Add Manual Diff Complete 05/27/21 17:57 Total Counted 50 05/27/21 17:57 Seg Neuts % (Manual) 48.0 % (40.0-70.0) 05/27/21 17:57 Band Neutrophils % 0 % 05/27/21 17:57 Lymphocytes % (Manual) 50.0 % (13.4-35.0) H 05/27/21 17:57 Reactive Lymphs % (Man) 0 % 05/27/21 17:57 Monocytes % (Manual) 2.0 % (0.0-7.3) 05/27/21 17:57 Eosinophils % (Manual) 0 % (0.0-4.3) 05/27/21 17:57 Basophils % (Manual) 0 % (0.0-1.8) 05/27/21 17:57 Metamyelocytes % 0 % 05/27/21 17:57 Myelocytes % 0 % 05/27/21 17:57 Promyelocytes % 0 % 05/27/21 17:57 Blast Cells % 0 % 05/27/21 17:57 Nucleated RBC % Not Reportable 05/27/21 17:57 Seg Neutrophils # Man 0.7 K/mm3 (1.8-7.7) L 05/27/21 17:57 Band Neutrophils # 0.0 K/mm3 05/27/21 17:57 Lymphocytes # (Manual) 0.7 K/mm3 (1.2-5.4) L 05/27/21 17:57 Abs React Lymphs (Man) 0.0 K/mm3 05/27/21 17:57 Monocytes # (Manual) 0.0 K/mm3 (0.0-0.8) 05/27/21 17:57 Eosinophils # (Manual) 0.0 K/mm3 (0.0-0.4) 05/27/21 17:57 Basophils # (Manual) 0.0 K/mm3 (0.0-0.1) 05/27/21 17:57 Metamyelocytes # 0.0 K/mm3 05/27/21 17:57 Myelocytes # 0.0 K/mm3 05/27/21 17:57 Promyelocytes # 0.0 K/mm3 05/27/21 17:57 Blast Cells # 0.0 K/mm3 05/27/21 17:57 WBC Morphology Not Reportable 05/27/21 17:57 Hypersegmented Neuts Not Reportable 05/27/21 17:57 Hyposegmented Neuts Not Reportable 05/27/21 17:57 Hypogranular Neuts Not Reportable 05/27/21 17:57 Smudge Cells Not Reportable 05/27/21 17:57 Toxic Granulation Not Reportable 05/27/21 17:57 Toxic Vacuolation Not Reportable 05/27/21 17:57 Dohle Bodies Not Reportable 05/27/21 17:57 Pelger-Huet Anomaly Not Reportable 05/27/21 17:57 Jay Rods Not Reportable 05/27/21 17:57 Platelet Estimate Consistent w auto 05/27/21 17:57 Clumped Platelets Not Reportable 05/27/21 17:57 Plt Clumps, EDTA Not Reportable 05/27/21 17:57 Large Platelets Few 05/27/21 17:57 Giant Platelets Not Reportable 05/27/21 17:57 Platelet Satelliting Not Reportable 05/27/21 17:57 Plt Morphology Comment Not Reportable 05/27/21 17:57 RBC Morphology Normal 05/27/21 17:57 Dimorphic RBCs Not Reportable 05/27/21 17:57 Polychromasia Not Reportable 05/27/21 17:57 Hypochromasia Not Reportable 05/27/21 17:57 Poikilocytosis Not Reportable 05/27/21 17:57 Anisocytosis Not Reportable 05/27/21 17:57 Microcytosis Not Reportable 05/27/21 17:57 Macrocytosis Not Reportable 05/27/21 17:57 Spherocytes Not Reportable 05/27/21 17:57 Pappenheimer Bodies Not Reportable 05/27/21 17:57 Sickle Cells Not Reportable 05/27/21 17:57 Target Cells Not Reportable 05/27/21 17:57 Tear Drop Cells Not Reportable 05/27/21 17:57 Ovalocytes Not Reportable 05/27/21 17:57 Helmet Cells Not Reportable 05/27/21 17:57 Centeno-Campanillas Bodies Not Reportable 05/27/21 17:57 [place] Rings Not Reportable 05/27/21 17:57 Shiva Cells Not Reportable 05/27/21 17:57 Bite Cells Not Reportable 05/27/21 17:57 Crenated Cell Not Reportable 05/27/21 17:57 Elliptocytes Not Reportable 05/27/21 17:57 Acanthocytes (Spur) Not Reportable 05/27/21 17:57 Rouleaux Not Reportable 05/27/21 17:57 Hemoglobin C Crystals Not Reportable 05/27/21 17:57 Schistocytes Not Reportable 05/27/21 17:57 Malaria parasites Not Reportable 05/27/21 17:57 Chidi Bodies Not Reportable 05/27/21 17:57 Hem Pathologist Commnt No 05/27/21 17:57 PT 14.3 Sec. (12.2-14.9) 05/27/21 19:39 INR 1.00 (0.87-1.13) 05/27/21 19:39 APTT 34.7 Sec. (24.2-36.6) 05/27/21 19:39 Sodium 126 mmol/L (137-145) L 05/27/21 17:57 Potassium 3.7 mmol/L (3.6-5.0) 05/27/21 17:57 Chloride 93.0 mmol/L (98-107) L 05/27/21 17:57 Carbon Dioxide 24 mmol/L (22-30) 05/27/21 17:57 Anion Gap 13 mmol/L 05/27/21 17:57 BUN 12 mg/dL (9-20) 05/27/21 17:57 Creatinine 0.9 mg/dL (0.8-1.3) 05/27/21 17:57 Estimated GFR > 60 ml/min 05/27/21 17:57 BUN/Creatinine Ratio 13 % 05/27/21 17:57 Glucose 104 mg/dL (75-100) H 05/27/21 17:57 POC Glucose 95 mg/dL (70-105) 05/27/21 17:50 Lactic Acid 2.00 mmol/L (0.7-2.0) 05/27/21 20:05 Calcium 8.3 mg/dL (8.4-10.2) L 05/27/21 17:57 Magnesium 1.70 mg/dL (1.7-2.3) 05/27/21 18:57 Total Bilirubin 0.60 mg/dL (0.1-1.2) 05/27/21 17:57 Direct Bilirubin < 0.2 mg/dL (0-0.2) 05/27/21 17:57 Indirect Bilirubin 0.4 mg/dL 05/27/21 17:57 AST 19 units/L (5-40) 05/27/21 17:57 ALT 11 units/L (7-56) 05/27/21 17:57 Alkaline Phosphatase 93 units/L (35-129) 05/27/21 17:57 Troponin T < 0.010 ng/mL (0.00-0.029) 05/27/21 21:00 NT-Pro-B Natriuret Pep 363.3 pg/mL (0-900) 05/27/21 17:57 Total Protein 7.4 g/dL (6.3-8.2) 05/27/21 17:57 Albumin 3.8 g/dL (3.9-5) L 05/27/21 17:57 Albumin/Globulin Ratio 1.1 % 05/27/21 17:57 TSH 1.110 mlU/mL (0.270-4.200) 05/27/21 17:57 Short CBC 05/27/21 05/27/21 05/28/21 Range/Units 17:57 19:39 05:58 WBC 1.4 L* 1.5 L* (4.5-11.0) K/mm3 Hgb 12.7 11.7 L (11.8-15.2) gm/dl Hct 38.1 34.7 L (35.5-45.6) % Plt Count 136 L 124 L 130 L (140-440) K/mm3 BMP 05/27/21 05/28/21 17:57 05:58 Sodium 126 L 140 D Potassium 3.7 4.3 Chloride 93.0 L 107.6 H Carbon Dioxide 24 22 BUN 12 12 Creatinine 0.9 0.7 L Glucose 104 H 179 H Calcium 8.3 L 7.8 L Cardiac Enzymes 05/27/21 05/27/21 Range/Units 17:57 21:00 Troponin T < 0.010 < 0.010 (0.00-0.029) ng/mL Liver Function 05/27/21 05/28/21 Range/Units 17:57 05:58 Total Bilirubin 0.60 0.40 (0.1-1.2) mg/dL Direct Bilirubin < 0.2 (0-0.2) mg/dL AST 19 17 (5-40) units/L ALT 11 9 (7-56) units/L Alkaline Phosphatase 93 83 (35-129) units/L Albumin 3.8 L 3.1 L (3.9-5) g/dL - Imaging and Cardiology EKG: report reviewed (Atrial fibrillation with RVR) Chest x-ray: report reviewed CT scan - chest: report reviewed Imaging and Cardiology: Chest x-ray No acute findings CT angiogram of the chest Mild acute PTE bilaterally. Possible small infarct in the posterior aspect of the right lower lobe. 71 cm groundglass nodule in the right lung apex. Assessment and Plan Advance Directives: Yes (Full code) VTE prophylaxis?: Chemical Plan of care discussed with patient/family: Yes - Patient Problems (1) Pulmonary embolism Current Visit: Yes Status: Acute Plan to address problem: Recently diagnosed and treated and discharged Not been taking his Eliquis Patient started on Lovenox 72 mg subcu twice daily (2) Acute respiratory failure with hypoxia Current Visit: Yes Status: Acute Plan to address problem: Patient is oxygen saturations have been low on room air Please 4 L of nasal cannula oxygen (3) Acute exacerbation of CHF (congestive heart failure) Current Visit: Yes Status: Acute Qualifiers: Heart failure type: combined systolic and diastolic Qualified Code(s): I50.43 - Acute on chronic combined systolic (congestive) and diastolic (congestive) heart failure Plan to address problem: IV Lasix and oral potassium consult Check echocardiogram for ejection fraction and valve function Cardiology consult requested (4) COPD exacerbation Current Visit: Yes Status: Acute Plan to address problem: Treated with duo nebs and IV Solu-Medrol and antibiotics (5) Leukopenia Current Visit: Yes Status: Acute Qualifiers: Leukopenia type: unspecified Qualified Code(s): D72.819 - Decreased white blood cell count, unspecified Plan to address problem: Etiology unclear May be secondary to drug-induced (6) Atrial fibrillation with RVR Current Visit: Yes Status: Acute Plan to address problem: Patient started on diltiazem IV 5 mg/h Also p.o. diltiazem started to switch over to oral diltiazem (7) DVT prophylaxis Current Visit: Yes Status: Acute Plan to address problem: On anticoagulation GI prophylaxis (8) Advance care planning Current Visit: Yes Status: Acute Plan to address problem: Disease education conducted, care plan discussed, diagnosis discussed, prognosis discussed. Patient is full code. Patient acknowledging understanding and agreement with care plan. +30 minutes.
[2021-05-27] MEDS ORDERED: ALBUTEROL 8.5 GM MDI INHALATION IH PRN (22:10)
[2021-05-27] MEDS ORDERED: ACETAMINOPHEN 325 MG TAB PO PRN (22:11)
[2021-05-27] MEDS ORDERED: ONDANSETRON 4 MG/2 ML INJ IV PRN (22:11)
[2021-05-27] MEDS ORDERED: APIXABAN 5 MG TAB PO SCH (22:15)
[2021-05-27] MEDS ORDERED: NON-FORMULARY EACH (Apixaban 5 MG Tablet) PO SCH (22:15)
[2021-05-27] MEDS ORDERED: ALBUTEROL 2.5 MG/3 ML NEBU IH PRN ×2 (22:15→23:00)
[2021-05-27] MEDS ORDERED: HYDROmorphone 1 MG/1 ML INJ IV PRN (22:17)
[2021-05-27] MEDS ORDERED: oxyCODONE /ACETAMINOPHEN 5-325MG TAB PO PRN (22:17)
[2021-05-27] MEDS ORDERED: IPRATROPIUM/ALBUTEROL SULFATE 3 ML AMPUL.NEB IH PRN (22:25)
[2021-05-27] MEDS ORDERED: dilTIAZem CD 120 MG CAP PO SCH (23:00)
--- NOTE | 2021-05-27 23:18 | Cat Scan Report ---
CTA CHEST WITH CONTRAST INDICATION / CLINICAL INFORMATION: Hypoxia. Cough. TECHNIQUE: Axial CT images were obtained through the chest after injection of 100 cc Omnipaque 350 IV contrast. 3 plane MIP and/or 3D reconstructions were produced. All CT scans at this location are per formed using CT dose reduction for ALARA by means of automated exposure control. COMPARISON: 10/01/18. FINDINGS: PULMONARY ARTERIES: Adequate opacification bilaterally. Small subsegmental filling defect in a subseg mental basilar right lower lobe branch. Minimal filling defect in a subsegmental branch of the lingul a. THORACIC AORTA: No significant abnormality. HEART: No significant abnormality. CORONARY ARTERY CALCIFICATION: None. MEDIASTINUM / MARINA: No significant abnormality. PLEURA: No pleural effusion. No pneumothorax. LUNGS: Small wedge-shaped pleural-based area of consolidation in the right posterior lung base. 1 cm groundglass nodule in the right lung apex anteriorly. ADDITIONAL FINDINGS: None. UPPER ABDOMEN: No acute findings. SKELETAL STRUCTURES: No significant osseous abnormality. IMPRESSION: 1. Mild acute PTE bilaterally. Possible small infarct in the posterior aspect of the right lower lobe . 2. Incidental 1 cm groundglass nodule in the right lung apex. INCIDENTAL PULMONARY NODULE RECOMMENDATION RECOMMENDATION: Subsolid Nodule (Ground glass) >=6 mm - CT at 6-12 months to confirm persistence, then CT every 2 years until 5 years Note These recommendations do not apply to lung cancer screening, patients with immunosuppression, o r patients with known primary cancer. Note Newly detected indeterminate nodule in persons 35 years of age or older. Persons under the age of 35 should not receive follow-up unless there is a known primary cancer. Note A Perifissural Nodule is a fissure-attached/subpleural, homogeneous, solid nodule that had smoo th margins and an oval, lentiform, or triangular shape. They represent about 20% of nodules detected in lung cancer screening, are invariably benign, and do not require follow-up. Nodules 10 mm or large r (or those with suspicious features) will continue to be managed based on the size criteria. Low Risk Patient -- minimal or absent history of smoking and of other known risk factors. High Risk Patient -- history of smoking or of other known risk factors. Nodule dimensions are average of long and short axes, rounded to the nearest millimeter. Based on 2017 Fleischner Society Guidelines found in Radiology 2017 284:228-243. https://doi.org/10.1148/radiol.5676265983 https://www.ncbi.nlm.nih.gov/pmc/articles/MRC7289018/ CRITICAL RESULT Time of Discovery (CUT OFF SAW SET UP OPERATOR/CDT): 10:08 PM Time of Communication (CUT OFF SAW SET UP OPERATOR/CDT): 10:11 PM Licensed Practitioner Receiving Report: Allegra, the patient's nurse in the emergency room. Read-Back Performed: Yes. Signer Name: Waqar Huertas MD Signed: 05/27/2021 11:13 PM Workstation Name: [id number]
[2021-05-27] MEDS ORDERED: ENOXAPARIN 100 MG/1 ML INJ SUB-Q SCH (23:45)
[2021-05-28] MEDS: FUROSEMIDE 40 MG/4 ML INJ IV SCH (00:53)
[2021-05-28] MEDS: POTASSIUM CHLORIDE ER 20 MEQ TAB PO SCH ×2 (00:55→13:30)
[2021-05-28] MEDS: methylPREDNISolone Sod Succinate 125 MG/2 ML INJ IV SCH ×3 (00:55→13:31)
[2021-05-28] MEDS: ENOXAPARIN 80 MG/0.8 ML INJ SUB-Q SCH ×2 (03:00→13:59)
[2021-05-28 06:27] LABS: Hematocrit 34.7 % (35.5-45.6); Hemoglobin 11.7 gm/dl (11.8-15.2); Mean Corpuscular HGB Conc 34 % (32-34); Mean Corpuscular Volume 110 fl (84-94); Platelet Count 130 K/mm3 (140-440); Red Blood Count 3.16 M/mm3 (3.65-5.03); Red Cell Distribution Width 13.7 % (13.2-15.2)
[2021-05-28 06:46] LABS: Alanine Aminotransferase 9 units/L (7-56); Albumin 3.1 g/dL (3.9-5); Blood Urea Nitrogen 12 mg/dL (9-20); Calcium 7.8 mg/dL (8.4-10.2); Hemolysis Index 3
[2021-05-28 06:49] LABS: BUN/Creatinine Ratio 17
[2021-05-28 10:01] LABS: Basophils % (Manual) 0 % (0.0-1.8); Eosinophils % (Manual) 0 % (0.0-4.3); Monocytes % (Manual) 0 % (0.0-7.3); RBC Morphology Normal; Total Cells Counted 100
[2021-05-28 10:02] LABS: Large Platelets Few; Platelet Estimate Consistent w Auto
[2021-05-28 11:09] LABS: Bilirubin,Urine NEG (Negative); Blood,Urine SM (Negative); Color,Urine Yellow (Yellow); Protein,Urine <15 mg/dL mg/dL (Negative); RBC,Urine < 1.0 /HPF (0.0-6.0)
[2021-05-28] MEDS: METOPROLOL SUCCINATE XL 25 MG TAB PO SCH (11:30)
[2021-05-28] MEDS: IPRATROPIUM/ALBUTEROL SULFATE 3 ML AMPUL.NEB IH SCH ×3 (11:36→18:25)
--- NOTE | 2021-05-28 12:13 | Consultation ---
History of Present Illness Consult date: 05/28/21 Requesting physician: RASHAD OLSON Reason for consult: COPD History of present illness: 60 y/o admitted with afib and pulmonary consulted for COPD exacerbation. STable on room air. Medications and Allergies Allergies Allergy/AdvReac Type Severity Reaction Status Date / Time No Known Allergies Allergy Verified 01/06/14 14:00 Home Medications Medication Instructions Recorded Confirmed Last Taken Type ALBUTEROL Inhaler(NF) [VENTOLIN 1 puff IH Q4H PRN #1 inha 06/03/18 10/01/18 Unknown Rx Inhaler(NF)] Benzonatate [Tessalon Perles] 100 mg PO Q8HR #30 capsule 06/03/18 10/01/18 Unknown Rx Tamsulosin [Flomax] 0.4 mg PO QDAY #30 capsule 06/03/18 10/01/18 Unknown Rx guaiFENesin [Robitussin] 200 mg PO Q6H PRN #120 ml 06/03/18 10/01/18 Unknown Rx Apixaban [Eliquis] 5 mg PO BID #60 tablet 10/03/18 Unknown Rx Metoprolol Xl [Metoprolol 25 mg PO QDAY #30 tablet 10/03/18 Unknown Rx SUCCINATE ER TAB] Prednisone [predniSONE 5 mg (6-Day 5 mg PO .TAPER #1 tab.ds.pk 10/03/18 Unknown Rx Pack, 21 Tabs)] Active Meds: Active Medications Acetaminophen (Acetaminophen 325 Mg Tab) 650 mg PO Q4H PRN PRN Reason: Pain MILD(1-3)/Fever >100.5/ELDER Albuterol (Albuterol 2.5 Mg/3 Ml Nebu) 2.5 mg IH Q3HRT PRN PRN Reason: Wheezing Albuterol/Ipratropium (Ipratropium/Albuterol Sulfate 3 Ml Ampul.Neb) 1 ampul IH QIDRT JESSA Last Admin: 05/28/21 11:36 Dose: Not Given Diltiazem HCl (Diltiazem Cd 120 Mg Cap) 120 mg PO Q24HR@2200 [facility] Last Admin: 05/28/21 00:53 Dose: Not Given Enoxaparin Sodium (Enoxaparin 80 Mg/0.8 Ml Inj) 70 mg 1 mg/kg (70 mg) SUB-Q Q12H [facility]; Protocol Last Admin: 05/28/21 03:00 Dose: 70 mg Furosemide (Furosemide 40 Mg/4 Ml Inj) 40 mg IV Q24H [facility] Last Admin: 05/28/21 00:53 Dose: Not Given Hydromorphone HCl (Hydromorphone 1 Mg/1 Ml Inj) 0.5 mg IV Q3H PRN PRN Reason: Pain , Severe (7-10) Amiodarone HCl 900 mg/ (Dextrose) 500 mls @ 33.333 mls/hr IV DIRECT [facility] Last Admin: 05/27/21 20:05 Dose: 1 mg/min, 33.333 mls/hr Levofloxacin/Dextrose (Levaquin 750mg/150ml) 750 mg in 150 mls @ 100 mls/hr IV Q24HR [facility]; Protocol Methylprednisolone Sodium Succinate (Methylprednisolone Sod Succinate 125 Mg/2 Ml Inj) 50 mg IV Q8HR [facility] Last Admin: 05/28/21 07:25 Dose: 50 mg Metoprolol Succinate (Metoprolol Succinate Xl 25 Mg Tab) 25 mg PO QDAY [facility] Last Admin: 05/28/21 11:30 Dose: Not Given Ondansetron HCl (Ondansetron 4 Mg/2 Ml Inj) 4 mg IV Q8H PRN PRN Reason: Nausea And Vomiting Oxycodone/Acetaminophen (Oxycodone /Acetaminophen 5-325mg Tab) 1 tab PO Q6H PRN PRN Reason: Pain, Moderate (4-6) Potassium Chloride (Potassium Chloride Er 20 Meq Tab) 20 meq PO QDAY [facility] Last Admin: 05/28/21 00:55 Dose: 20 meq Sodium Chloride (Sodium Chloride 0.9% 10 Ml Flush Syringe) 10 ml IV BID JESAS Sodium Chloride (Sodium Chloride 0.9% 10 Ml Flush Syringe) 10 ml IV PRN PRN PRN Reason: LINE FLUSH Tamsulosin HCl (Tamsulosin 0.4 Mg Cap) 0.4 mg PO QDAY [facility] Physical Examination Vital signs: Vital Signs Temp Pulse Resp BP Pulse Ox 100.4 F H 163 H 33 H 124/75 94 05/27/21 17:24 05/27/21 17:24 05/27/21 17:24 05/27/21 17:24 05/27/21 17:24 Results - Laboratory Findings CBC and BMP: 05/29/21 05:14 05/28/21 05:58 PT/INR, D-dimer PT 14.3 Sec. (12.2-14.9) 05/27/21 19:39 INR 1.00 (0.87-1.13) 05/27/21 19:39 Abnormal lab findings: Abnormal Labs 05/27/21 05/27/21 05/27/21 17:57 17:57 19:39 WBC 1.4 L* RBC 3.47 L Hgb Hct MCV 110 H MCH 37 H Plt Count 136 L 124 L Seg Neuts % (Manual) Lymphocytes % (Manual) 50.0 H Seg Neutrophils # Man 0.7 L Lymphocytes # (Manual) 0.7 L Sodium 126 L Chloride 93.0 L Creatinine Glucose 104 H Calcium 8.3 L Albumin 3.8 L 05/28/21 05/28/21 05:58 05:58 WBC 1.5 L* RBC 3.16 L Hgb 11.7 L Hct 34.7 L MCV 110 H MCH 37 H Plt Count 130 L Seg Neuts % (Manual) 76.0 H Lymphocytes % (Manual) Seg Neutrophils # Man 1.1 L Lymphocytes # (Manual) 0.3 L Sodium Chloride 107.6 H Creatinine 0.7 L Glucose 179 H Calcium 7.8 L Albumin 3.1 L Assessment and Plan 60 y/o male with uncontrolled afib and questionable COPD and Pulm embolism 1. Switch to PO steroids 2. Follow up in office for lucian and repeat CXr 3. Anticoagulation for PE 4. Hypercoag work up as outpatient.
[2021-05-28] MEDS: TAMSULOSIN 0.4 MG CAP PO SCH (13:31)
[2021-05-28] MEDS: AMIODARONE 200 MG TAB PO SCH (13:54)
--- NOTE | 2021-05-28 20:32 | Progress Note ---
Assessment and Plan - Patient Problems (1) Pulmonary embolism Current Visit: Yes Status: Acute Plan to address problem: Recently diagnosed and treated and discharged Not been taking his Eliquis Patient started on Lovenox 72 mg subcu twice daily (2) Acute respiratory failure with hypoxia Current Visit: Yes Status: Acute Plan to address problem: Patient is oxygen saturations have been low on room air Please 4 L of nasal cannula oxygen (3) Acute exacerbation of CHF (congestive heart failure) Current Visit: Yes Status: Acute Qualifiers: Heart failure type: combined systolic and diastolic Qualified Code(s): I50.43 - Acute on chronic combined systolic (congestive) and diastolic (congestive) heart failure Plan to address problem: IV Lasix and oral potassium consult Check echocardiogram for ejection fraction and valve function Cardiology consult requested (4) COPD exacerbation Current Visit: Yes Status: Acute Plan to address problem: Treated with duo nebs and IV Solu-Medrol and antibiotics (5) Leukopenia Current Visit: Yes Status: Acute Qualifiers: Leukopenia type: unspecified Qualified Code(s): D72.819 - Decreased white blood cell count, unspecified Plan to address problem: Etiology unclear May be secondary to drug-induced (6) Atrial fibrillation with RVR Current Visit: Yes Status: Acute Plan to address problem: Patient started on diltiazem IV 5 mg/h Also p.o. diltiazem started to switch over to oral diltiazem (7) DVT prophylaxis Current Visit: Yes Status: Acute Plan to address problem: On anticoagulation GI prophylaxis (8) Advance care planning Current Visit: Yes Status: Acute Plan to address problem: Disease education conducted, care plan discussed, diagnosis discussed, prognosis discussed. Patient is full code. Patient acknowledging understanding and agreement with care plan. +30 minutes. Subjective Date of service: 05/28/21 Objective - Constitutional Vitals: Vital Signs - 12hr 05/28/21 05/28/21 05/28/21 08:46 09:00 09:16 Pulse Rate 66 62 61 Respiratory 20 16 15 Rate Blood Pressure 100/62 105/69 94/64 O2 Sat by Pulse 94 96 95 Oximetry 05/28/21 05/28/21 05/28/21 09:30 09:46 10:00 Pulse Rate 62 67 59 L Respiratory 17 13 21 Rate Blood Pressure 93/59 93/59 90/69 O2 Sat by Pulse 96 99 96 Oximetry 05/28/21 05/28/21 05/28/21 10:16 10:30 10:46 Pulse Rate 61 72 62 Respiratory 18 20 17 Rate Blood Pressure 87/62 96/70 85/62 O2 Sat by Pulse 95 96 97 Oximetry 05/28/21 05/28/21 05/28/21 11:00 11:16 11:30 Pulse Rate 59 L 51 L 50 L Respiratory 15 15 16 Rate Blood Pressure 91/60 94/66 89/69 O2 Sat by Pulse 97 95 96 Oximetry 05/28/21 05/28/21 05/28/21 11:46 12:00 12:16 Pulse Rate 57 L 52 L 62 Respiratory 17 17 17 Rate Blood Pressure 101/71 105/62 110/74 O2 Sat by Pulse 96 98 97 Oximetry 05/28/21 05/28/21 05/28/21 12:30 12:46 13:00 Pulse Rate 53 L 63 84 Respiratory 18 18 17 Rate Blood Pressure 107/77 102/67 100/69 O2 Sat by Pulse 96 94 95 Oximetry 05/28/21 05/28/21 05/28/21 13:16 13:30 13:46 Pulse Rate 66 64 66 Respiratory 15 14 19 Rate Blood Pressure 97/63 97/66 105/76 O2 Sat by Pulse 95 98 95 Oximetry 05/28/21 05/28/21 05/28/21 14:00 14:16 14:30 Pulse Rate 73 76 68 Respiratory 25 H 19 17 Rate Blood Pressure 88/65 111/70 111/67 O2 Sat by Pulse 99 96 95 Oximetry 05/28/21 05/28/21 05/28/21 14:46 15:00 15:16 Pulse Rate 68 67 68 Respiratory 18 14 19 Rate Blood Pressure 105/70 100/71 99/68 O2 Sat by Pulse 96 97 97 Oximetry 05/28/21 05/28/21 05/28/21 15:30 15:46 16:00 Pulse Rate 62 62 71 Respiratory 19 17 15 Rate Blood Pressure 102/66 102/66 99/65 O2 Sat by Pulse 96 97 98 Oximetry 05/28/21 05/28/21 05/28/21 16:16 16:30 16:46 Pulse Rate 68 77 79 Respiratory 15 14 14 Rate Blood Pressure 101/67 101/67 101/67 O2 Sat by Pulse 97 98 97 Oximetry 0105/28/21 05/28/21 17:00 17:16 17:30 Pulse Rate 79 75 87 Respiratory 18 15 28 H Rate Blood Pressure 106/69 98/66 99/64 O2 Sat by Pulse 95 97 96 Oximetry 05/28/21 05/28/21 05/28/21 17:46 18:00 18:16 Pulse Rate 74 83 69 Respiratory 16 15 15 Rate Blood Pressure 109/64 116/64 100/66 O2 Sat by Pulse 96 96 96 Oximetry 05/28/21 18:30 Pulse Rate 55 L Respiratory 13 Rate Blood Pressure 96/66 O2 Sat by Pulse 100 Oximetry General appearance: Present: no acute distress, well-nourished - EENT Eyes: PERRL, EOM intact ENT: hearing intact, clear oral mucosa Ears: bilateral: normal - Neck Neck: supple, normal ROM - Respiratory Respiratory effort: normal Respiratory: bilateral: CTA - Breasts Breasts: normal - Cardiovascular Rhythm: regular Heart Sounds: Present: S1 & S2. Absent: gallop, rub Extremities: pulses intact, No edema, normal color, Full ROM - Gastrointestinal General gastrointestinal: Present: soft, non-tender, non-distended, normal bowel sounds - Genitourinary Male genitourinary: normal - Integumentary Integumentary: clear, warm, dry - Musculoskeletal Musculoskeletal: 1, strength equal bilaterally - Neurologic Neurologic: moves all extremities - Psychiatric Psychiatric: memory intact, appropriate mood/affect, intact judgment & insight - Labs CBC & Chem 7: 05/28/21 05:58 05/28/21 05:58 Labs: Abnormal lab results 05/27/21 05/28/21 05/28/21 Range/Units 19:39 05:58 05:58 WBC 1.5 L* (4.5-11.0) K/mm3 RBC 3.16 L (3.65-5.03) M/mm3 Hgb 11.7 L (11.8-15.2) gm/dl Hct 34.7 L (35.5-45.6) % MCV 110 H (84-94) fl MCH 37 H (28-32) pg Plt Count 124 L 130 L (140-440) K/mm3 Seg Neuts % (Manual) 76.0 H (40.0-70.0) % Seg Neutrophils # Man 1.1 L (1.8-7.7) K/mm3 Lymphocytes # (Manual) 0.3 L (1.2-5.4) K/mm3 Chloride 107.6 H (98-107) mmol/L Creatinine 0.7 L (0.8-1.3) mg/dL Glucose 179 H (75-100) mg/dL Calcium 7.8 L (8.4-10.2) mg/dL Albumin 3.1 L (3.9-5) g/dL HEART Score - HEART Score Age: 45-65 Risk factors: > 3 risk factors or hx of atherosclerotic disease Troponin: Troponin T < 0.010 ng/mL (0.00-0.029) 05/27/21 21:00 Troponin: < normal limit - Critical Actions Critical Actions: 4-6 pts:12-16.6% risk of adverse cardiac event. Should be admitted
[2021-05-29] MEDS: ENOXAPARIN 80 MG/0.8 ML INJ SUB-Q SCH ×2 (02:04→14:40)
[2021-05-29] MEDS: AMIODARONE 900 MG in DEXTROSE 5% IN WATER 482 ML IV SCH (02:32)
[2021-05-29] MEDS: methylPREDNISolone Sod Succinate 125 MG/2 ML INJ IV SCH ×3 (06:02→22:37)
[2021-05-29 06:07] LABS: Hematocrit 34.6 % (35.5-45.6); Hemoglobin 11.4 gm/dl (11.8-15.2)
[2021-05-29] MEDS: TAMSULOSIN 0.4 MG CAP PO SCH (10:10)
[2021-05-29] MEDS: POTASSIUM CHLORIDE ER 20 MEQ TAB PO SCH (10:10)
[2021-05-29] MEDS: METOPROLOL SUCCINATE XL 25 MG TAB PO SCH (10:10)
[2021-05-29] MEDS: AMIODARONE 200 MG TAB PO SCH (10:10)
[2021-05-29] MEDS: IPRATROPIUM/ALBUTEROL SULFATE 3 ML AMPUL.NEB IH SCH ×5 (10:36→21:34)
--- NOTE | 2021-05-29 11:32 | Electrocardiograph Report ---
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 Left anterior fascicular block No previous ECG available for comparison Electronically Signed On 05-29-2021 11:32:09 EST by Sherman Barrios
--- NOTE | 2021-05-29 11:35 | Electrocardiograph Report ---
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 with aberrantly conducted APC's. Incomplete RBBB and LAFB Probable right ventricular hypertrophy Borderline ST elevation, anterior leads Compared to ECG 05/27/2021 17:12:10, probablyno significant change noted. Electronically Signed On 05-29-2021 11:35:08 EST by Sherman Barrios
--- NOTE | 2021-05-29 12:17 | Progress Note ---
Assessment and Plan 60 y/o male with uncontrolled afib and questionable COPD and Pulm embolism 05/29/21: Consider changing to oral anticoagulation. Should switch to PO steroids with quick taper or stop all together as he has been on them less than 7 days. Rate control per cards and primary. 1. Switch to PO steroids 2. Follow up in office for lucian and repeat CXr 3. Anticoagulation for PE 4. Hypercoag work up as outpatient. Subjective Date of service: 05/29/21 Interval history: Started on BID lovenox therapy. REmains on room air. Objective Vital Signs - 12hr 05/29/21 05/29/21 05/29/21 00:16 00:40 02:13 Temperature 98.0 F Pulse Rate 52 L 50 L Pulse Rate [ Anterior Bilateral Throughout] Respiratory 16 16 Rate Respiratory Rate [Anterior Bilateral Throughout] Blood Pressure 94/65 108/67 Blood Pressure [Left] O2 Sat by Pulse 92 97 94 Oximetry 05/29/21 05/29/21 05/29/21 03:35 08:13 08:44 Temperature 97.9 F 98.4 F Pulse Rate 45 L 52 L Pulse Rate [ Anterior Bilateral Throughout] Respiratory 16 16 Rate Respiratory Rate [Anterior Bilateral Throughout] Blood Pressure 101/69 100/61 186/130 Blood Pressure [Left] O2 Sat by Pulse 95 93 Oximetry 05/29/21 05/29/21 05/29/21 08:50 09:00 09:10 Temperature Pulse Rate 82 86 Pulse Rate [ Anterior Bilateral Throughout] Respiratory 36 H 32 H Rate Respiratory Rate [Anterior Bilateral Throughout] Blood Pressure 186/130 186/130 146/115 Blood Pressure [Left] O2 Sat by Pulse 100 100 100 Oximetry 05/29/21 05/29/21 05/29/21 09:20 09:30 09:40 Temperature Pulse Rate 88 92 H 74 Pulse Rate [ Anterior Bilateral Throughout] Respiratory 41 H 49 H 25 H Rate Respiratory Rate [Anterior Bilateral Throughout] Blood Pressure 146/115 146/115 146/115 Blood Pressure [Left] O2 Sat by Pulse 100 95 98 Oximetry 05/29/21 05/29/21 05/29/21 09:50 10:00 10:10 Temperature Pulse Rate 94 H 63 71 Pulse Rate [ Anterior Bilateral Throughout] Respiratory 22 21 26 H Rate Respiratory Rate [Anterior Bilateral Throughout] Blood Pressure 146/115 146/115 146/115 Blood Pressure [Left] O2 Sat by Pulse 96 92 Oximetry 05/29/21 05/29/21 05/29/21 10:20 10:29 10:31 Temperature Pulse Rate 73 77 Pulse Rate [ Anterior Bilateral Throughout] Respiratory 24 24 21 Rate Respiratory Rate [Anterior Bilateral Throughout] Blood Pressure 146/115 106/67 161/97 Blood Pressure [Left] O2 Sat by Pulse 98 Oximetry 05/29/21 05/29/21 05/29/21 10:41 10:51 11:01 Temperature Pulse Rate 66 71 73 Pulse Rate [ 65 Anterior Bilateral Throughout] Respiratory 21 17 18 Rate Respiratory 18 Rate [Anterior Bilateral Throughout] Blood Pressure 161/97 161/97 131/109 Blood Pressure [Left] O2 Sat by Pulse 100 100 99 Oximetry 05/29/21 05/29/21 05/29/21 11:11 11:20 11:34 Temperature 98.4 F Pulse Rate 72 76 55 L Pulse Rate [ Anterior Bilateral Throughout] Respiratory 17 18 18 Rate Respiratory Rate [Anterior Bilateral Throughout] Blood Pressure 131/109 131/109 Blood Pressure 100/66 [Left] O2 Sat by Pulse 97 91 98 Oximetry CBC and BMP: 05/29/21 05:14 05/28/21 05:58 ABG, PT/INR, D-dimer: PT/INR, D-dimer PT 14.3 Sec. (12.2-14.9) 05/27/21 19:39 INR 1.00 (0.87-1.13) 05/27/21 19:39 Abnormal lab findings: Abnormal Labs 05/27/21 05/27/21 05/27/21 17:57 17:57 19:39 WBC 1.4 L* RBC 3.47 L Hgb Hct MCV 110 H MCH 37 H Plt Count 136 L 124 L Seg Neuts % (Manual) Lymphocytes % (Manual) 50.0 H Seg Neutrophils # Man 0.7 L Lymphocytes # (Manual) 0.7 L Sodium 126 L Chloride 93.0 L Creatinine Glucose 104 H Calcium 8.3 L Albumin 3.8 L 05/28/21 05/28/21 05/29/21 05:58 05:58 05:14 WBC 1.5 L* RBC 3.16 L Hgb 11.7 L 11.4 L Hct 34.7 L 34.6 L MCV 110 H MCH 37 H Plt Count 130 L 133 L Seg Neuts % (Manual) 76.0 H Lymphocytes % (Manual) Seg Neutrophils # Man 1.1 L Lymphocytes # (Manual) 0.3 L Sodium Chloride 107.6 H Creatinine 0.7 L Glucose 179 H Calcium 7.8 L Albumin 3.1 L
--- NOTE | 2021-05-29 14:30 | Consultation ---
History of Present Illness Consult date: 05/29/21 Consult reason: tachycardia History of present illness: The patient is a 60-year-old man who presented to the emergency room with we akness and cough. On presentation to the emergency room, he was mostly in a sinus rhythm but demonstrated recurrences of rapid narrow complex tachycardia. This was treated with intravenous amiodarone in the emergency room. Serial ECGs show a sinus rhythm with left axis deviation, with intermittent short bursts of PAT. The patient is further work-up of his cough with a CTA of the chest was positive for pulmonary embolism. He was admitted on intravenous anticoagulant therapy, cardiac consultation was requested for further assessment of management and management of the tachycardia. His past history is notable for previous pulmonary embolism for which he is on Eliquis therapy. There is no prior cardiac history that is documented, patient is a poor historian with respect to details of any prior cardiac work-up. Chest x-ray shows a mild cardiomegaly and clear lungs. An echocardiogram done on this presentation shows well-preserved left ventricular systolic function with ejection fraction 50%. Past History Past Medical History: pulmonary embolism, other (History of pulmonary embolism on Eliquis) Medications and Allergies Allergies Allergy/AdvReac Type Severity Reaction Status Date / Time No Known Allergies Allergy Verified 01/06/14 14:00 Home Medications Medication Instructions Recorded Confirmed Last Taken Type ALBUTEROL Inhaler(NF) [VENTOLIN 1 puff IH Q4H PRN #1 inha 06/03/18 10/01/18 Unknown Rx Inhaler(NF)] Benzonatate [Tessalon Perles] 100 mg PO Q8HR #30 capsule 06/03/18 10/01/18 Unknown Rx Tamsulosin [Flomax] 0.4 mg PO QDAY #30 capsule 06/03/18 10/01/18 Unknown Rx guaiFENesin [Robitussin] 200 mg PO Q6H PRN #120 ml 06/03/18 10/01/18 Unknown Rx Apixaban [Eliquis] 5 mg PO BID #60 tablet 10/03/18 Unknown Rx Metoprolol Xl [Metoprolol 25 mg PO QDAY #30 tablet 10/03/18 Unknown Rx SUCCINATE ER TAB] Prednisone [predniSONE 5 mg (6-Day 5 mg PO .TAPER #1 tab.ds.pk 10/03/18 Unknown Rx Pack, 21 Tabs)] Active Meds: Active Medications Acetaminophen (Acetaminophen 325 Mg Tab) 650 mg PO Q4H PRN PRN Reason: Pain MILD(1-3)/Fever >100.5/ELDER Albuterol (Albuterol 2.5 Mg/3 Ml Nebu) 2.5 mg IH Q3HRT PRN PRN Reason: Wheezing Albuterol/Ipratropium (Ipratropium/Albuterol Sulfate 3 Ml Ampul.Neb) 1 ampul IH QIDRT [facility] Last Admin: 05/29/21 10:51 Dose: 1 ampul Aspirin (Aspirin Ec 81 Mg Tab) 81 mg PO QDAY [facility] Diltiazem HCl (Diltiazem 60 Mg Tab) 60 mg PO Q6HR [facility] Enoxaparin Sodium (Enoxaparin 80 Mg/0.8 Ml Inj) 70 mg 1 mg/kg (70 mg) SUB-Q Q12H [facility]; Protocol Last Admin: 05/29/21 02:04 Dose: 70 mg Furosemide (Furosemide 40 Mg/4 Ml Inj) 40 mg IV Q24H [facility] Last Admin: 05/28/21 00:53 Dose: Not Given Hydromorphone HCl (Hydromorphone 1 Mg/1 Ml Inj) 0.5 mg IV Q3H PRN PRN Reason: Pain , Severe (7-10) Levofloxacin/Dextrose (Levaquin 750mg/150ml) 750 mg in 150 mls @ 100 mls/hr IV Q24HR [facility]; Protocol Stop: 06/01/21 11:29 Last Infusion: 05/28/21 15:52 Dose: Infused Methylprednisolone Sodium Succinate (Methylprednisolone Sod Succinate 125 Mg/2 Ml Inj) 50 mg IV Q8HR [facility] Last Admin: 05/29/21 06:02 Dose: 50 mg Metoprolol Succinate (Metoprolol Succinate Xl 25 Mg Tab) 25 mg PO QDAY [facility] Last Admin: 05/29/21 10:10 Dose: 25 mg Ondansetron HCl (Ondansetron 4 Mg/2 Ml Inj) 4 mg IV Q8H PRN PRN Reason: Nausea And Vomiting Oxycodone/Acetaminophen (Oxycodone /Acetaminophen 5-325mg Tab) 1 tab PO Q6H PRN PRN Reason: Pain, Moderate (4-6) Potassium Chloride (Potassium Chloride Er 20 Meq Tab) 20 meq PO QDAY [facility] Last Admin: 05/29/21 10:10 Dose: 20 meq Sodium Chloride (Sodium Chloride 0.9% 10 Ml Flush Syringe) 10 ml IV BID [facility] Last Admin: 05/29/21 10:10 Dose: Not Given Sodium Chloride (Sodium Chloride 0.9% 10 Ml Flush Syringe) 10 ml IV PRN PRN PRN Reason: LINE FLUSH Tamsulosin HCl (Tamsulosin 0.4 Mg Cap) 0.4 mg PO QDAY [facility] Last Admin: 05/29/21 10:10 Dose: 0.4 mg Review of Systems Cardiovascular: shortness of breath, no chest pain, no orthopnea, no palpitations, no rapid/irregular heart beat, no edema, no syncope, no lightheadedness Physical Examination Vital Signs Temp Pulse Resp BP Pulse Ox 100.4 F H 163 H 33 H 124/75 94 05/27/21 17:24 05/27/21 17:24 05/27/21 17:24 05/27/21 17:24 05/27/21 17:24 General appearance: no acute distress HEENT: Positive: PERRL Neck: Positive: neck supple Cardiac: Positive: Reg Rate and Rhythm Lungs: Positive: Decreased Breath Sounds Neuro: Positive: Grossly Intact Abdomen: Positive: Soft Male genitourinary: Positive: deferred Skin: Positive: Clear Extremities: Absent: edema Results 05/29/21 05:14 05/28/21 05:58 CBC 05/29/21 Range/Units 05:14 Hgb 11.4 L (11.8-15.2) gm/dl Hct 34.6 L (35.5-45.6) % Plt Count 133 L (140-440) K/mm3 EKG interpretations - Telemetry EKG Rhythm: Sinus Rhythm (Interspersed with short bursts of PAT) Assessment and Plan - Patient Problems (1) Paroxysmal atrial tachycardia Current Visit: Yes Status: Acute Plan to address problem: We will treat intermittent tachycardia with oral diltiazem, otherwise continue management of the patient's PE and COPD. I have seen no rhythm strips or EKGs that would suggest paroxysmal atrial fibrillation, but the patient is already on oral anticoagulation with Eliquis for his intercurrent history of pulmonary embolism.
[2021-05-29] MEDS: ASPIRIN EC 81 MG TAB PO SCH (14:39)
[2021-05-29] MEDS: dilTIAZem 60 MG TAB PO SCH ×2 (14:39→22:40)
[2021-05-30] MEDS: dilTIAZem 60 MG TAB PO SCH ×4 (00:04→18:24)
[2021-05-30] MEDS: FUROSEMIDE 40 MG/4 ML INJ IV SCH (00:05)
[2021-05-30] MEDS: ENOXAPARIN 80 MG/0.8 ML INJ SUB-Q SCH ×2 (00:09→14:15)
--- NOTE | 2021-05-30 01:00 | Progress Note ---
Assessment and Plan - Patient Problems (1) Pulmonary embolism Current Visit: Yes Status: Acute Plan to address problem: Recently diagnosed and treated and discharged Not been taking his Eliquis Patient started on Lovenox 72 mg subcu twice daily (2) Acute respiratory failure with hypoxia Current Visit: Yes Status: Acute Plan to address problem: Patient is oxygen saturations have been low on room air Please 4 L of nasal cannula oxygen (3) Acute exacerbation of CHF (congestive heart failure) Current Visit: Yes Status: Acute Qualifiers: Heart failure type: combined systolic and diastolic Qualified Code(s): I50.43 - Acute on chronic combined systolic (congestive) and diastolic (congestive) heart failure Plan to address problem: IV Lasix and oral potassium consult Check echocardiogram for ejection fraction and valve function Cardiology consult requested (4) COPD exacerbation Current Visit: Yes Status: Acute Plan to address problem: Treated with duo nebs and IV Solu-Medrol and antibiotics (5) Leukopenia Current Visit: Yes Status: Acute Qualifiers: Leukopenia type: unspecified Qualified Code(s): D72.819 - Decreased white blood cell count, unspecified Plan to address problem: Etiology unclear May be secondary to drug-induced (6) Atrial fibrillation with RVR Current Visit: Yes Status: Acute Plan to address problem: Patient started on diltiazem IV 5 mg/h Also p.o. diltiazem started to switch over to oral diltiazem (7) DVT prophylaxis Current Visit: Yes Status: Acute Plan to address problem: On anticoagulation GI prophylaxis (8) Advance care planning Current Visit: Yes Status: Acute Plan to address problem: Disease education conducted, care plan discussed, diagnosis discussed, prognosis discussed. Patient is full code. Patient acknowledging understanding and agreement with care plan. +30 minutes. Subjective Date of service: 05/29/21 Objective - Constitutional Vitals: Vital Signs - 12hr 05/29/21 05/29/21 05/29/21 14:39 14:55 16:05 Temperature 98.6 F Pulse Rate 78 65 Pulse Rate [ 60 Anterior Bilateral Throughout] Respiratory 16 Rate Respiratory 18 Rate [Anterior Bilateral Throughout] Blood Pressure Blood Pressure 103/57 [Left] O2 Sat by Pulse 98 Oximetry 05/29/21 05/29/21 05/29/21 17:36 20:01 23:59 Temperature 97.5 F L 97.3 F L Pulse Rate 57 L 77 Pulse Rate [ 60 Anterior Bilateral Throughout] Respiratory 20 18 Rate Respiratory 18 Rate [Anterior Bilateral Throughout] Blood Pressure 105/50 100/61 Blood Pressure [Left] O2 Sat by Pulse 95 97 Oximetry 05/30/21 05/30/21 00:00 00:04 Temperature Pulse Rate Pulse Rate [ Anterior Bilateral Throughout] Respiratory Rate Respiratory Rate [Anterior Bilateral Throughout] Blood Pressure 100/61 Blood Pressure [Left] O2 Sat by Pulse 98 Oximetry General appearance: Present: no acute distress, well-nourished - EENT Eyes: PERRL, EOM intact ENT: hearing intact, clear oral mucosa Ears: bilateral: normal - Neck Neck: supple, normal ROM - Respiratory Respiratory effort: normal Respiratory: bilateral: CTA - Breasts Breasts: normal - Cardiovascular Rhythm: regular Heart Sounds: Present: S1 & S2. Absent: gallop, rub Extremities: pulses intact, No edema, normal color, Full ROM - Gastrointestinal General gastrointestinal: Present: soft, non-tender, non-distended, normal bowel sounds - Genitourinary Male genitourinary: normal - Integumentary Integumentary: clear, warm, dry - Musculoskeletal Musculoskeletal: 1, strength equal bilaterally - Neurologic Neurologic: moves all extremities - Psychiatric Psychiatric: memory intact, appropriate mood/affect, intact judgment & insight - Labs CBC & Chem 7: 05/29/21 05:14 05/28/21 05:58 Labs: Abnormal lab results 05/29/21 Range/Units 05:14 Hgb 11.4 L (11.8-15.2) gm/dl Hct 34.6 L (35.5-45.6) % Plt Count 133 L (140-440) K/mm3 HEART Score - HEART Score Age: 45-65 Risk factors: > 3 risk factors or hx of atherosclerotic disease Troponin: Troponin T < 0.010 ng/mL (0.00-0.029) 05/27/21 21:00 Troponin: < normal limit - Critical Actions Critical Actions: 4-6 pts:12-16.6% risk of adverse cardiac event. Should be admitted
[2021-05-30] MEDS: methylPREDNISolone Sod Succinate 125 MG/2 ML INJ IV SCH ×2 (06:01→14:22)
--- NOTE | 2021-05-30 09:54 | Progress Note ---
Assessment and Plan 60 y/o male with uncontrolled afib and questionable COPD and Pulm embolism 05/30/21: No new recs for today. Please see below. Per cards note, patient was already on anticoagulation as an outpatient for recurrent VTE so assuming Hypercoag work up has already been done. 05/29/21: Consider changing to oral anticoagulation. Should switch to PO steroids with quick taper or stop all together as he has been on them less than 7 days. Rate control per cards and primary. 1. Switch to PO steroids 2. Follow up in office for lucian and repeat CXr 3. Anticoagulation for PE 4. Hypercoag work up as outpatient. Subjective Date of service: 05/30/21 Interval history: No acute events. Objective Vital Signs - 12hr 05/29/21 05/30/21 05/30/21 23:59 00:00 00:04 Temperature 97.3 F L Pulse Rate 77 Respiratory 18 Rate Blood Pressure 100/61 100/61 O2 Sat by Pulse 97 98 Oximetry 05/30/21 05/30/21 05/30/21 03:45 06:00 07:56 Temperature 97.4 F L 96.4 F L Pulse Rate 59 L 59 L 59 L Respiratory 18 18 Rate Blood Pressure 93/59 93/59 89/60 O2 Sat by Pulse 94 93 Oximetry CBC and BMP: 05/29/21 05:14 05/28/21 05:58 ABG, PT/INR, D-dimer: PT/INR, D-dimer PT 14.3 Sec. (12.2-14.9) 05/27/21 19:39 INR 1.00 (0.87-1.13) 05/27/21 19:39 Abnormal lab findings: Abnormal Labs 05/27/21 05/27/21 05/27/21 17:57 17:57 19:39 WBC 1.4 L* RBC 3.47 L Hgb Hct MCV 110 H MCH 37 H Plt Count 136 L 124 L Seg Neuts % (Manual) Lymphocytes % (Manual) 50.0 H Seg Neutrophils # Man 0.7 L Lymphocytes # (Manual) 0.7 L Sodium 126 L Chloride 93.0 L Creatinine Glucose 104 H Calcium 8.3 L Albumin 3.8 L 05/28/21 05/28/21 05/29/21 05:58 05:58 05:14 WBC 1.5 L* RBC 3.16 L Hgb 11.7 L 11.4 L Hct 34.7 L 34.6 L MCV 110 H MCH 37 H Plt Count 130 L 133 L Seg Neuts % (Manual) 76.0 H Lymphocytes % (Manual) Seg Neutrophils # Man 1.1 L Lymphocytes # (Manual) 0.3 L Sodium Chloride 107.6 H Creatinine 0.7 L Glucose 179 H Calcium 7.8 L Albumin 3.1 L
[2021-05-30] MEDS: IPRATROPIUM/ALBUTEROL SULFATE 3 ML AMPUL.NEB IH SCH (10:38)
[2021-05-30] MEDS: POTASSIUM CHLORIDE ER 20 MEQ TAB PO SCH (11:03)
[2021-05-30] MEDS: TAMSULOSIN 0.4 MG CAP PO SCH (11:03)
[2021-05-30] MEDS: ASPIRIN EC 81 MG TAB PO SCH (11:03)
--- NOTE | 2021-05-30 12:26 | Progress Note ---
Assessment and Plan - Patient Problems (1) Paroxysmal atrial tachycardia Current Visit: Yes Status: Acute Plan to address problem: We will add treat paroxysmal tachycardia with a combination of amiodarone and diltiazem. Defer management of the patient's presenting acute PE and COPD to internal medicine and pulmonary. Continue oral anticoagulation with Eliquis for his intercurrent history of pulmonary embolism. Subjective Date of service: 05/30/21 Interval history: Patient is comfortable, weight checker shows continue bursts of atrial tachycardia interspersed with his baseline sinus rhythm. He is currently on 240 mg of diltiazem. Objective Vital Signs Temp Pulse Pulse Resp Resp BP BP 05/30/21 10:37 05/30/21 07:56 96.4 F L 59 L 18 89/60 05/30/21 06:00 59 L 93/59 05/30/21 03:45 97.4 F L 59 L 18 93/59 05/30/21 00:04 100/61 05/30/21 00:00 05/29/21 23:59 97.3 F L 77 18 100/61 05/29/21 20:01 97.5 F L 57 L 20 105/50 05/29/21 17:36 60 18 05/29/21 16:05 98.6 F 65 16 103/57 05/29/21 14:55 60 18 05/29/21 14:39 78 Pulse Ox 05/30/21 10:37 97 05/30/21 07:56 93 05/30/21 06:00 05/30/21 03:45 94 05/30/21 00:04 05/30/21 00:00 98 05/29/21 23:59 97 05/29/21 20:01 95 05/29/21 17:36 05/29/21 16:05 98 05/29/21 14:55 05/29/21 14:39 - Physical Examination General: No Apparent Distress HEENT: Positive: PERRL Neck: Positive: neck supple Cardiac: Positive: Irregularly Regular Lungs: Positive: Decreased Breath Sounds Neuro: Positive: Grossly Intact Abdomen: Positive: Soft Skin: Positive: Clear Extremities: Absent: edema - Imaging and Cardiology EKG: report reviewed (Atrial fibrillation with RVR)
[2021-05-30] MEDS ORDERED: AMIODARONE 200 MG TAB PO SCH (13:00)
[2021-05-30 16:36] VITALS: BP 110/67
--- NOTE | 2021-05-30 17:04 | Discharge Summary ---
Providers - Providers Date of Admission: 05/27/21 19:01 Date of discharge: 05/30/21 Attending physician: RASHAD OLSON 05/27/21 19:36 Consult to Physician [CONS] Urgent Comment: Consulting Provider: VANESSA RUEDA Physician Instructions: Reason For Exam: SVT 05/27/21 22:27 Consult to Physician [CONS] Routine Comment: Consulting Provider: CARY OWEN Physician Instructions: Reason For Exam: copd exacerbation Primary care physician: AMBER ULLOA MD Hospitalization Condition: Stable Disposition: 01 HOME / SELF CARE / HOMELESS - Discharge Diagnoses (1) Pulmonary embolism Status: Acute (2) Acute respiratory failure with hypoxia Status: Acute (3) Acute exacerbation of CHF (congestive heart failure) Status: Acute Qualifiers: Heart failure type: combined systolic and diastolic Qualified Code(s): I50.43 - Acute on chronic combined systolic (congestive) and diastolic (congestive) heart failure (4) COPD exacerbation Status: Acute (5) Leukopenia Status: Acute Qualifiers: Leukopenia type: unspecified Qualified Code(s): D72.819 - Decreased white blood cell count, unspecified (6) Atrial fibrillation with RVR Status: Acute (7) DVT prophylaxis Status: Acute (8) Advance care planning Status: Acute Exam - Constitutional Vitals: Temp Pulse Resp BP Pulse Ox 98.7 F 60 18 110/67 94 05/30/21 15:29 05/30/21 15:29 05/30/21 15:29 05/30/21 15:29 05/30/21 15:29 Plan Follow up with: AMBER ULLOA MD [Primary Care Provider] - 3-5 Days
--- NOTE | 2021-05-31 10:06 | Electrocardiograph Report ---
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
== END 2021-05-30 22:30 | disposition home or self-care (01) | DRG 291 ==
LOC: ED 17:01 → 4A 19:01 → IMCU 23:15 → CC1 05-28 02:41 → 4A 05-28 20:47
PROVIDERS: ADMIT Internal Medicine; ATTEND Internal Medicine
DX: I11.0 Hypertensive heart disease with heart failure (principal); J96.01 Acute respiratory failure with hypoxia; I50.43 Acute on chronic combined systolic (congestive) and diastolic (congestive) heart failure; I26.99 Other pulmonary embolism without acute cor pulmonale; J44.1 Chronic obstructive pulmonary disease with (acute) exacerbation; I48.20 Chronic atrial fibrillation, unspecified; I47.1 Supraventricular tachycardia; E87.1 Hypo-osmolality and hyponatremia; Z87.891 Personal history of nicotine dependence
CPT/HCPCS: 36415; 71045; 71275; 80048; 80053; 80076; 81001; 82140; 82962; 83735; 83880; 84443; 84484; 85007; 85014; 85018; 85025; 85049; 85610; 85730; 87040; 87086; 93005; 93010; 93306; 94640; 94644; G0378; J3490; J7060; Q0162; C8929; J0282; J0456; J0696; J1100; J1644; J1650; J1956; J2930; J7030; J7040; Q9967

== ENCOUNTER 2021-12-09 11:00 | Observation (INO) | payer MEDICARE ==
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
[2021-12-09] MEDS ORDERED: METOCLOPRAMIDE 10 MG/2 ML INJ IV ONE (11:58)
[2021-12-09] MEDS ORDERED: PANTOPRAZOLE 40 MG INJ IV ONE (11:58)
[2021-12-09] MEDS ORDERED: SODIUM BICARB 8.4% 50 MEQ/50 ML SYRINGE IV ONE ×2 (11:58→16:30)
[2021-12-09] MEDS ORDERED: LACTATED RINGERS 500 ML IV ONE (12:00)
[2021-12-09 12:12] LABS: Hematocrit 35.8 % (35.5-45.6); Hemoglobin 12.2 gm/dl (11.8-15.2); Mean Corpuscular HGB Conc 34 % (32-34); Platelet Count 191 K/mm3 (140-440); Red Blood Count 3.24 M/mm3 (3.65-5.03); Red Cell Distribution Width 14.9 % (13.2-15.2)
[2021-12-09 12:16] LABS: INR 1.07 (0.87-1.13)
[2021-12-09 12:18] LABS: Mean Corpuscular Volume 111 fl (84-94)
[2021-12-09] MEDS ORDERED: CALCIUM GLUCONATE 1,000 MG in SODIUM CHLORIDE 0.9% 100 ML IV ONE ×2 (13:00→16:30)
[2021-12-09 13:20] LABS: Alanine Aminotransferase 13 units/L (7-56); Albumin 4.3 g/dL (3.9-5); BUN/Creatinine Ratio 24; Blood Urea Nitrogen 19 mg/dL (9-20); Hemolysis Index 8
[2021-12-09 13:58] LABS: Mucus,Urine FEW /HPF
[2021-12-09 14:24] LABS: Bilirubin,Urine Negative (Negative); Color,Urine Straw (Yellow)
[2021-12-09 14:25] LABS: Blood,Urine Negative (Negative); PH,Urine 6.5 (5.0-7.0); Urobilinogen,Urine < 2.0 mg/dL (<2.0); WBC,Urine < 1.0 /HPF (0.0-6.0)
[2021-12-09 14:34] LABS: Total Cells Counted 100
[2021-12-09 14:35] LABS: Amphetamine Screen,Urine PRESUMPTIVE NEGATIVE; Benzodiazepines Screen,Urine PRESUMPTIVE NEGATIVE; Cannabinoid Screen,Urine PRESUMPTIVE NEGATIVE; Cocaine Screen,Urine PRESUMPTIVE POSITIVE; Methadone Screen,Urine PRESUMPTIVE NEGATIVE; Opiate Screen,Urine PRESUMPTIVE NEGATIVE
[2021-12-09 14:35] LABS: Anisocytosis 1+; Platelet Estimate Consistent w Auto
--- NOTE | 2021-12-09 14:43 | Cat Scan Report ---
CT HEAD WITHOUT CONTRAST INDICATION / CLINICAL INFORMATION: syncope confusion. TECHNIQUE: All CT scans at this location are performed using CT dose reduction for ALARA by means of automated exposure control. COMPARISON: MRI of the brain dated 10/02/[address] of the head dated 09/30/2018 FINDINGS: HEMORRHAGE: None. EXTRA-AXIAL SPACES: Normal in size and morphology for the patient's age. VENTRICULAR SYSTEM: Normal in size and morphology for the patient's age. CEREBRAL PARENCHYMA: Loss of armendariz-white differentiation is noted within the prefrontal cortex. MIDLINE SHIFT / HERNIATION: None. CEREBELLUM / BRAINSTEM: No significant abnormality. ORBITS: Normal as visualized SOFT TISSUES: No significant abnormality. SKULL: No significant abnormality. PARANASAL SINUSES / MASTOID AIR CELLS: Normal as visualized ADDITIONAL FINDINGS: None. IMPRESSION: 1. Loss of armendariz-white differentiation within the left prefrontal cortex concerning for infarction. No intracranial hemorrhage CRITICAL RESULT Time of Discovery (S[employer]ACHINE [employer]/CDT): 1:32 PM Time of Communication ([employer]/CDT): 1:37 PM Licensed Practitioner Receiving Report: Dr. Morris Read-Back Performed: Yes. Signer Name: Krzysztof Leos DO Signed: 12/09/2021 2:39 PM Workstation Name: [id number]
--- NOTE | 2021-12-09 15:14 | Cat Scan Report ---
CTA CHEST WITH IV CONTRAST INDICATION / CLINICAL INFORMATION: Acute chest pain, syncope, confusion. TECHNIQUE: Axial CT images were obtained through the chest after injection of 85 cc Omni 350 IV contrast. 3 plan e MIP and/or 3D reconstructions were produced. All CT scans at this location are performed using CT d ose reduction for ALARA by means of automated exposure control. COMPARISON: Recent CTA chest 05/27/2021 FINDINGS: PULMONARY ARTERIES: No evidence for pulmonary thromboembolism. Previously noted bilateral pulmonary e mboli on the prior CT from 05/27/2021 no longer present. THORACIC AORTA: No significant abnormality. HEART: Mild cardiomegaly. CORONARY ARTERIES: No significant calcification. PLEURA: No pleural effusion. No pneumothorax. LYMPH NODES: No significant adenopathy. LUNGS: No acute air space or interstitial disease. ADDITIONAL FINDINGS: None. UPPER ABDOMEN: No acute findings. SKELETAL STRUCTURES: No significant osseous abnormality. IMPRESSION: 1. No CT evidence for pulmonary embolism. 2. Previously noted bilateral PTE have resolved. 3. No acute pulmonary or pleural abnormality. Signer Name: aCtalina Sandoval MD Signed: 12/09/2021 3:09 PM Workstation Name: [id number]
[2021-12-09] MEDS ORDERED: ONDANSETRON 4 MG/2 ML INJ IV PRN ×2 (15:19→23:59)
[2021-12-09] MEDS ORDERED: ACETAMINOPHEN 325 MG TAB PO PRN ×2 (15:19→23:59)
--- NOTE | 2021-12-09 15:22 | Emergency Department Report ---
Blank Doc - Documentation Documentation: [facility] Consult Note # Demographics Consult Type: Acute Stroke Level 1 (0-4.5 hrs) Patient Location: Emergency Room First Name: Jordan Munguia Last Name: Christen alvarez Date of : 1960 Age: 61 Gender: Male Facility: [facility] Time of Initial Page (Eastern Time): 12/09/2021, 14:46 Time of Return Call (Eastern Time): 12/09/2021, 14:46 # HPI History: 61 year old male hx of Afib on eliquis, COPD, CHF, PE presents with confusion, chest pain, nausea/vomiting who had syncopal today with concern for overdose on metoprolol. Hx of prior stroke with left sided weakness. Patient states he passed out for about 4-5 minutes. Concern for stroke was low as per ED provider. CTH: loss of armendariz-white differentiation in left pre-frontal cortex Last Known Normal: unknown # Scores Level of Consciousness 1a: [0] = Alert; keenly responsive LOC Questions 1b: [0] = Answers both questions correctly LOC Commands 1c: [0] = Performs both tasks correctly Best Gaze 2: [0] = Normal Visual 3: [0] = No visual loss Facial Palsy 4: [0] = Normal symmetrical movements Motor Arm Left 5a: [0] = No drift Motor Arm Right 5b: [0] = No drift Motor Leg Left 6a: [1] = Drift Motor Leg Right 6b: [2] = Some effort against gravity Limb Ataxia 7: [0] = Absent Sensory 8: [0] = Normal Best Language 9: [0] = No aphasia Dysarthria 10: [0] = Normal Extinction and Inattention 11: [0] = No abnormality NIHSS Total: 3 # PMH-FH-SH Past Medical History: A-fib congestive heart failure COPD hypertension Social History: non-smoker non-drinker no drugs lives with family Medications: anticoagulant # Data Head CT: no bleed early ischemic change per radiologist read # Assessment Impression: Patient with CTH showing loss of armendariz white differentiation in lfet pre-frontal cortex. Pt has some weakness in RLE which is new. Not tpa candidate as on eliquis, and cth changes. Recommend full work up. Hold eliquis until MRI Brain is done to assess size of stroke. Can reconsult to confirm ok to resume eliquis after MRI Brain is done (recommend sooner than later to prevent holding eliquis for too long). Ok to be on ASA 81 until eliquis can be resumed at which time if patient not on it at home, it can be dced # Plan Thrombolytic/Intervention: NOT IV Thrombolysis or IA Intervention candidate Thrombolytic Exclusion (3-4.5 hour window): on anticoagulation Thrombolytic Exclusion: > 4.5 hours Intraarterial Exclusion: cta pending Blood Pressure Management: IV fluid bolus Target Blood Pressure: SBP < 160 SBP > 110 DBP < 105 Labs: CBC comprehensive metabolic panel hemoglobin A1c lipid panel troponin TSH ua Imaging: (urgency: STAT): CT Head without contrast CT Angiogram Head and CT Angiogram Neck Imaging: (urgency: routine): MRI Brain without contrast Diagnostic Test: echo with bubble study Other: If patient has any neurological deterioration please call me back immediately telemetry monitoring I have discussed my recommendations with the referring provider Disposition: admit # Demographics First Name: Jordan Munguia Last Name: Christen alvarez Facility: [facility]
[2021-12-09] MEDS ORDERED: ATROPINE 0.4 MG/1 ML INJ IV ONE (16:03)
[2021-12-09] MEDS ORDERED: LACTATED RINGERS 1,000 ML IV ONE (16:03)
[2021-12-09] MEDS ORDERED: ATROPINE 0.1% (1 MG/10 ML) CARDIAC SYRINGE ONE (16:05)
[2021-12-09] MEDS ORDERED: SODIUM CHLORIDE 0.9% 1000 ML 2,000 ML ONE (16:05)
--- NOTE | 2021-12-09 17:26 | Cat Scan Report ---
CTA HEAD AND NECK WITH CONTRAST HISTORY: Syncope, subacute stroke COMPARISON: Head CT done earlier today TECHNIQUE: All CT scans at this location are performed using CT dose reduction for ALARA by means of automated exposure control.. 3-D/MIP reformats postprocessed. Percentage stenosis is determined by d irect quantitative measurements of diseased internal carotid artery diameter compared with normal dis dick internal carotid artery reference segments or by criteria similar to NASCET where applicable. CONTRAST: 100 ml of Omnipaque 350 FINDINGS: CT HEAD: BRAIN / INTRACRANIAL CONTENTS: No acute hemorrhage, mass effect, midline shift, or hydrocephalus. No appreciable acute large territorial or lacunar infarct. Stable small chronic infarct in the right pos terior temporal lobe. ORBITS: No significant abnormality of visualized orbits. SINUSES / MASTOIDS: No significant abnormality of visualized sinuses and mastoid air cells. CTA HEAD: Intracranial vertebral arteries: No significant abnormality. Basilar artery: No significant abnormality. Posterior cerebral arteries: Developmental developmental origin of the left posterior cerebral artery. Intracranial internal carotid arteries: No significant abnormality. Anterior cerebral arteries: No significant abnormality. Middle cerebral arteries: No significant abnormality. Dural venous sinuses:Not optimally opacified. No significant abnormality. CTA NECK: Aortic arch: No significant abnormality. Cervical vertebral arteries: No significant abnormality. Common carotid arteries: No significant abnormality. Cervical internal carotid arteries: No significant abnormality. Additional findings: Tiny thyroid nodules measuring less than 1 cm that do not require dedicated foll ow-up. IMPRESSION: 1. No large vessel occlusion or significant stenosis in the neck or intracranial arteries. Signer Name: Kb Gage MD Signed: 12/09/2021 5:21 PM Workstation Name: [email or web address]
[2021-12-09] MEDS ORDERED: SODIUM CHLORIDE 0.9% 1000 ML 1,000 ML IV SCH (23:45)
[2021-12-09] MEDS ORDERED: oxyCODONE /ACETAMINOPHEN 5-325MG TAB PO PRN (23:59)
[2021-12-09] MEDS ORDERED: MORPHINE 2 MG/1 ML INJ IV PRN (23:59)
[2021-12-09] MEDS ORDERED: METOCLOPRAMIDE 10 MG/2 ML INJ IV PRN (23:59)
--- NOTE | 2021-12-09 23:59 | History and Physical Report ---
History of Present Illness Date of examination: 12/09/21 Date of admission: 12/09/21 18:27 Chief complaint: Passed out couple of hours ago History of present illness: 61-year-old -Cub[place] male with history of arrhythmias, BPH, hypertension,and COPD brought in by EMS for passing out at home. 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 Patient is not a good historian. He apparently passed out while doing some work regained consciousness in a few seconds. No chest pain. No palpitations. No fever or chills. No exacerbating or relieving factors. - Past Medical History --Hypertension: Yes --CVA: Yes (02/2016 L MCA on MRI, left side weak) --Congestive Heart Failure: Yes --Pulmonary Embolism: Yes (CURRENTLY ON ELIQUIS) --COPD: Yes --Additional medical history: elevated cholesterol -Past surgical history --None -Family history --Htn - Social History --Smoking Status: Former Smoker - Medications --Home Medications: Home Medications Medication Instructions Recorded Confirmed Last Taken Type ALBUTEROL Inhaler(NF) [VENTOLIN 1 puff IH Q4H PRN #1 inha 06/03/18 05/30/21 Unknown Rx Inhaler(NF)] Amiodarone [Cordarone 200 MG TAB] 200 mg PO BID #60 tablet 05/30/21 12/09/21 Unknown Rx Apixaban [Eliquis] 5 mg PO BID 30 Days #60 tablet 05/30/21 12/09/21 Unknown Rx Furosemide [Lasix TAB] 20 mg PO QDAY #30 05/30/21 12/09/21 Unknown Rx Ipratropium/Albuterol Sulfate 1 ampul IH Q6HR #50 ampul.neb 05/30/21 Unknown Rx [DUONEB *Not for PRN Use*] Metoprolol Xl [Metoprolol 25 mg PO QDAY 30 Days #30 tablet 05/30/21 12/09/21 Unknown Rx SUCCINATE ER TAB] Potassium Chloride [K-Dur] 10 meq PO QDAY 30 Days #30 tablet 05/30/21 Unknown Rx Tamsulosin [Flomax] 0.4 mg PO QDAY 30 Days #30 capsule 05/30/21 12/09/21 Unknown Rx Cetirizine 5mg tab 12/09/21 Unknown History Simvastatin 12/09/21 Unknown History Review of Systems ROS: Stated complaint: SYNCOPI EPISODE Other details as noted in HPI Comment: Unobtainable due to pts medical conditions Constitutional: fever, malaise, weakness Respiratory: denies: cough Cardiovascular: chest pain, syncope Gastrointestinal: nausea, vomiting. denies: abdominal pain, hematemesis, reina na, hematochezia Genitourinary: denies: dysuria Neurological: weakness, confusion Hematological/Lymphatic: denies: easy bleeding Medications and Allergies Allergies Allergy/AdvReac Type Severity Reaction Status Date / Time No Known Allergies Allergy Verified 05/30/21 09:11 Home Medications Medication Instructions Recorded Confirmed Last Taken Type ALBUTEROL Inhaler(NF) [VENTOLIN 1 puff IH Q4H PRN #1 inha 06/03/18 05/30/21 Unknown Rx Inhaler(NF)] Amiodarone [Cordarone 200 MG TAB] 200 mg PO BID #60 tablet 05/30/21 12/09/21 Unknown Rx Apixaban [Eliquis] 5 mg PO BID 30 Days #60 tablet 05/30/21 12/09/21 Unknown Rx Furosemide [Lasix TAB] 20 mg PO QDAY #30 05/30/21 12/09/21 Unknown Rx Ipratropium/Albuterol Sulfate 1 ampul IH Q6HR #50 ampul.neb 05/30/21 Unknown Rx [DUONEB *Not for PRN Use*] Metoprolol Xl [Metoprolol 25 mg PO QDAY 30 Days #30 tablet 05/30/21 12/09/21 Unknown Rx SUCCINATE ER TAB] Potassium Chloride [K-Dur] 10 meq PO QDAY 30 Days #30 tablet 05/30/21 Unknown Rx Tamsulosin [Flomax] 0.4 mg PO QDAY 30 Days #30 capsule 05/30/21 12/09/21 Unknown Rx Cetirizine 5mg tab 12/09/21 Unknown History Simvastatin 12/09/21 Unknown History Active Meds: Active Medications Acetaminophen (Acetaminophen 325 Mg Tab) 650 mg PO Q4H PRN PRN Reason: Pain MILD(1-3)/Fever >100.5/ELDER Ondansetron HCl (Ondansetron 4 Mg/2 Ml Inj) 4 mg IV Q8H PRN PRN Reason: Nausea And Vomiting Sodium Chloride (Sodium Chloride 0.9% 10 Ml Flush Syringe) 10 ml IV BID JESSA Last Admin: 12/09/21 22:16 Dose: 10 ml Sodium Chloride (Sodium Chloride 0.9% 10 Ml Flush Syringe) 10 ml IV PRN PRN PRN Reason: LINE FLUSH Exam - Constitutional Vitals: Temp Pulse Resp BP Pulse Ox 97.9 F 45 L 16 100/67 98 12/09/21 23:07 12/09/21 23:07 12/09/21 23:07 12/09/21 23:07 12/09/21 23:07 General appearance: Present: no acute distress, well-nourished - EENT Eyes: Present: PERRL ENT: hearing intact, clear oral mucosa - Neck Neck: Present: supple, normal ROM - Respiratory Respiratory effort: normal Respiratory: bilateral: CTA - Cardiovascular Heart rate: 78 Rhythm: regular Heart Sounds: Present: S1 & S2. Absent: rub, click - Extremities Extremities: no ischemia, pulses intact, pulses symmetrical, No edema Peripheral Pulses: within normal limits - Abdominal General gastrointestinal: Present: soft, non-tender, non-distended, normal bowel sounds Male genitourinary: Present: normal - Rectal Rectal Exam: deferred - Integumentary Integumentary: Present: clear, warm, dry - Musculoskeletal Musculoskeletal: gait normal, strength equal bilaterally - Psychiatric Psychiatric: appropriate mood/affect, intact judgment & insight - Neurologic Neurologic: CNII-XII intact, moves all extremities - Allied Health Allied health notes reviewed: nursing, case management HEART Score - HEART Score EKG: Non-specific Age: 45-65 Risk factors: > 3 risk factors or hx of atherosclerotic disease Troponin: Troponin T < 0.010 ng/mL (0.00-0.029) 12/09/21 11:56 Troponin: < normal limit - Critical Actions Critical Actions: 4-6 pts:12-16.6% risk of adverse cardiac event. Should be admitted Results - Labs CBC & Chem 7: 12/09/21 11:56 12/09/21 11:56 Labs: Laboratory Last Values WBC 2.0 K/mm3 (4.5-11.0) L 12/09/21 11:56 RBC 3.24 M/mm3 (3.65-5.03) L 12/09/21 11:56 Hgb 12.2 gm/dl (11.8-15.2) 12/09/21 11:56 Hct 35.8 % (35.5-45.6) 12/09/21 11:56 MCV 111 fl (84-94) H 12/09/21 11:56 MCH 38 pg (28-32) H 12/09/21 11:56 MCHC 34 % (32-34) 12/09/21 11:56 RDW 14.9 % (13.2-15.2) 12/09/21 11:56 Plt Count 191 K/mm3 (140-440) 12/09/21 11:56 Add Manual Diff Complete 12/09/21 11:56 Total Counted 100 12/09/21 11:56 Seg Neuts % (Manual) 52.0 % (40.0-70.0) 12/09/21 11:56 Band Neutrophils % 0 % 12/09/21 11:56 Lymphocytes % (Manual) 35.0 % (13.4-35.0) 12/09/21 11:56 Reactive Lymphs % (Man) 0 % 12/09/21 11:56 Monocytes % (Manual) 10.0 % (0.0-7.3) H 12/09/21 11:56 Eosinophils % (Manual) 1.0 % (0.0-4.3) 12/09/21 11:56 Basophils % (Manual) 2.0 % (0.0-1.8) H 12/09/21 11:56 Metamyelocytes % 0 % 12/09/21 11:56 Myelocytes % 0 % 12/09/21 11:56 Promyelocytes % 0 % 12/09/21 11:56 Blast Cells % 0 % 12/09/21 11:56 Nucleated RBC % Not Reportable 12/09/21 11:56 Seg Neutrophils # Man 1.0 K/mm3 (1.8-7.7) L 12/09/21 11:56 Band Neutrophils # 0.0 K/mm3 12/09/21 11:56 Lymphocytes # (Manual) 0.7 K/mm3 (1.2-5.4) L 12/09/21 11:56 Abs React Lymphs (Man) 0.0 K/mm3 12/09/21 11:56 Monocytes # (Manual) 0.2 K/mm3 (0.0-0.8) 12/09/21 11:56 Eosinophils # (Manual) 0.0 K/mm3 (0.0-0.4) 12/09/21 11:56 Basophils # (Manual) 0.0 K/mm3 (0.0-0.1) 12/09/21 11:56 Metamyelocytes # 0.0 K/mm3 12/09/21 11:56 Myelocytes # 0.0 K/mm3 12/09/21 11:56 Promyelocytes # 0.0 K/mm3 12/09/21 11:56 Blast Cells # 0.0 K/mm3 12/09/21 11:56 WBC Morphology Not Reportable 12/09/21 11:56 Hypersegmented Neuts Not Reportable 12/09/21 11:56 Hyposegmented Neuts Not Reportable 12/09/21 11:56 Hypogranular Neuts Not Reportable 12/09/21 11:56 Smudge Cells Not Reportable 12/09/21 11:56 Toxic Granulation Not Reportable 12/09/21 11:56 Toxic Vacuolation Not Reportable 12/09/21 11:56 Dohle Bodies Not Reportable 12/09/21 11:56 Pelger-Huet Anomaly Not Reportable 12/09/21 11:56 Jay Rods Not Reportable 12/09/21 11:56 Platelet Estimate Consistent w auto 12/09/21 11:56 Clumped Platelets Not Reportable 12/09/21 11:56 Plt Clumps, EDTA Not Reportable 12/09/21 11:56 Large Platelets Not Reportable 12/09/21 11:56 Giant Platelets Not Reportable 12/09/21 11:56 Platelet Satelliting Not Reportable 12/09/21 11:56 Plt Morphology Comment Not Reportable 12/09/21 11:56 RBC Morphology Not Reportable 12/09/21 11:56 Dimorphic RBCs Not Reportable 12/09/21 11:56 Polychromasia Not Reportable 12/09/21 11:56 Hypochromasia Not Reportable 12/09/21 11:56 Poikilocytosis Not Reportable 12/09/21 11:56 Anisocytosis 1+ 12/09/21 11:56 Microcytosis Not Reportable 12/09/21 11:56 Macrocytosis Not Reportable 12/09/21 11:56 Spherocytes Not Reportable 12/09/21 11:56 Pappenheimer Bodies Not Reportable 12/09/21 11:56 Sickle Cells Not Reportable 12/09/21 11:56 Target Cells Not Reportable 12/09/21 11:56 Tear Drop Cells Not Reportable 12/09/21 11:56 Ovalocytes Not Reportable 12/09/21 11:56 Helmet Cells Not Reportable 12/09/21 11:56 [place] Bodies Not Reportable 12/09/21 11:56 Brinklow Rings Not Reportable 12/09/21 11:56 [place] Cells Not Reportable 12/09/21 11:56 Bite Cells Not Reportable 12/09/21 11:56 Crenated Cell Not Reportable 12/09/21 11:56 Elliptocytes Not Reportable 12/09/21 11:56 Acanthocytes (Spur) Not Reportable 12/09/21 11:56 Rouleaux Not Reportable 12/09/21 11:56 Hemoglobin C Crystals Not Reportable 12/09/21 11:56 Schistocytes Not Reportable 12/09/21 11:56 Malaria parasites Not Reportable 12/09/21 11:56 Chidi Bodies Not Reportable 12/09/21 11:56 Hem Pathologist Commnt No 12/09/21 11:56 PT 15.1 Sec. (12.2-14.9) H 12/09/21 11:56 INR 1.07 (0.87-1.13) 12/09/21 11:56 D-Dimer 147.95 ng/mlDDU (0-234) 12/09/21 13:25 Sodium 139 mmol/L (137-145) 12/09/21 11:56 Potassium 4.2 mmol/L (3.6-5.0) 12/09/21 11:56 Chloride 100.8 mmol/L (98-107) 12/09/21 11:56 Carbon Dioxide 27 mmol/L (22-30) 12/09/21 11:56 Anion Gap 15 mmol/L 12/09/21 11:56 BUN 19 mg/dL (9-20) 12/09/21 11:56 Creatinine 0.8 mg/dL (0.8-1.3) 12/09/21 11:56 Estimated GFR > 60 ml/min 12/09/21 11:56 BUN/Creatinine Ratio 24 % 12/09/21 11:56 Glucose 112 mg/dL (75-100) H 12/09/21 11:56 Calcium 9.0 mg/dL (8.4-10.2) 12/09/21 11:56 Magnesium 2.00 mg/dL (1.7-2.3) 12/09/21 11:56 Total Bilirubin 0.70 mg/dL (0.1-1.2) 12/09/21 11:56 AST 15 units/L (5-40) 12/09/21 11:56 ALT 13 units/L (7-56) 12/09/21 11:56 Alkaline Phosphatase 130 units/L (35-129) H 12/09/21 11:56 Troponin T < 0.010 ng/mL (0.00-0.029) 12/09/21 11:56 Total Protein 7.5 g/dL (6.3-8.2) 12/09/21 11:56 Albumin 4.3 g/dL (3.9-5) 12/09/21 11:56 Albumin/Globulin Ratio 1.3 % 12/09/21 11:56 TSH 1.020 mlU/mL (0.270-4.200) 12/09/21 11:56 Urine Color Straw (Yellow) 12/09/21 12:43 Urine Turbidity Clear (Clear) 12/09/21 12:43 Urine pH 6.5 (5.0-7.0) 12/09/21 12:43 Ur Specific [place] 1.005 (1.003-1.030) 12/09/21 12:43 Urine Protein 30 mg/dl mg/dL (Negative) 12/09/21 12:43 Urine Glucose (UA) Negative mg/dL (Negative) 12/09/21 12:43 Urine Ketones Negative mg/dL (Negative) 12/09/21 12:43 Urine Blood Negative (Negative) 12/09/21 12:43 Urine Nitrite Negative (Negative) 12/09/21 12:43 Ur Reducing Substances Not Reportable 12/09/21 12:43 Urine Bilirubin Negative (Negative) 12/09/21 12:43 Urine Ictotest Not Reportable 12/09/21 12:43 Urine Urobilinogen < 2.0 mg/dL (<2.0) 12/09/21 12:43 Ur Leukocyte Esterase Negative (Negative) 12/09/21 12:43 Urine WBC (Auto) < 1.0 /HPF (0.0-6.0) 12/09/21 12:43 Urine RBC (Auto) 1.0 /HPF (0.0-6.0) 12/09/21 12:43 U Epithel Cells (Auto) < 1.0 /HPF (0-13.0) 12/09/21 12:43 Urine Mucus Few /HPF 12/09/21 12:43 Salicylates < 0.3 mg/dL (2.8-20.0) L 12/09/21 11:56 Urine Opiates Screen Presumptive negative 12/09/21 12:43 Urine Methadone Screen Presumptive negative 12/09/21 12:43 Acetaminophen 5.0 ug/mL (10.0-30.0) L 12/09/21 11:56 Ur Barbiturates Screen Presumptive negative 12/09/21 12:43 Ur Phencyclidine Scrn Presumptive negative 12/09/21 12:43 Ur Amphetamines Screen Presumptive negative 12/09/21 12:43 U Benzodiazepines Scrn Presumptive negative 12/09/21 12:43 Urine Cocaine Screen Presumptive positive 12/09/21 12:43 U Marijuana (THC) Screen Presumptive negative 12/09/21 12:43 Drugs of Abuse Note Disclamer 12/09/21 12:43 Microbiology: Microbiology 12/09/21 11:58 Stool Stool Occult Blood (EYAL) - Final - Imaging and Cardiology EKG: report reviewed (NSr no acute ST-T wave changes) Jamil/IV: Voiding Method Condom Catheter Assessment and Plan Advance Directives: Yes (Full code) VTE prophylaxis?: Chemical Plan of care discussed with patient/family: Yes - Patient Problems (1) Syncope Current Visit: Yes Status: Acute Qualifiers: Syncope type: vasovagal syncope Qualified Code(s): R55 - Syncope and collapse Plan to address problem: Probably vasovagal syncope Syncope work-up Echocardiogram and carotid duplex scan Patient has history of CVA in the past with left hemiparesis (2) A-fib Current Visit: Yes Status: Chronic Qualifiers: Atrial fibrillation type: persistent (not longstanding) Qualified Code(s): I48.19 - Other persistent atrial fibrillation; I48.1 - Persistent atrial fibrillation Plan to address problem: Rate controlled Continue amiodarone Patient also on Eliquis (3) HTN (hypertension) Current Visit: No Status: Chronic Qualifiers: Hypertension type: primary hypertension Qualified Code(s): I10 - Essential (primary) hypertension Plan to address problem: Continue antihypertensives and adjust medications as necessary (4) BPH (benign prostatic hyperplasia) Current Visit: Yes Status: Chronic Qualifiers: Lower urinary tract symptom presence: symptoms present Plan to address problem: Continue tamsulosin (5) DVT prophylaxis Current Visit: No Status: Acute Plan to address problem: On anticoagulation GI prophylaxis (6) Advance care planning Current Visit: Yes Status: Acute Plan to address problem: Disease education conducted, care plan discussed, diagnosis discussed and prognosis discussed. Patient acknowledged understanding with care plan. +30 minutes.
[2021-12-10 11:57] LABS: Basophils % (Auto) 1.5 % (0.0-1.8); Eosinophils % (Auto) 1.8 % (0.0-4.3); Hematocrit 34.7 % (35.5-45.6); Hemoglobin 11.9 gm/dl (11.8-15.2); Lymphocytes # (Auto) 1.4 K/mm3 (1.2-5.4); Lymphocytes % (Auto) 50.2 % (13.4-35.0); Mean Corpuscular HGB Conc 34 % (32-34); Mean Corpuscular Volume 111 fl (84-94); Monocytes # (Auto) 0.3 K/mm3 (0.0-0.8); Monocytes % (Auto) 10.7 % (0.0-7.3); Platelet Count 188 K/mm3 (140-440); Red Blood Count 3.14 M/mm3 (3.65-5.03); Red Cell Distribution Width 14.8 % (13.2-15.2)
[2021-12-10 12:00] LABS: Alanine Aminotransferase 9 units/L (7-56); Albumin 3.5 g/dL (3.9-5); BUN/Creatinine Ratio 19; Blood Urea Nitrogen 13 mg/dL (9-20); Calcium 8.4 mg/dL (8.4-10.2); Hemolysis Index 8
--- NOTE | 2021-12-10 14:41 | Electrocardiograph Report ---
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
--- NOTE | 2021-12-10 14:45 | Electrocardiograph Report ---
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
--- NOTE | 2021-12-10 21:40 | Progress Note ---
Assessment and Plan - Patient Problems (1) A-fib Current Visit: Yes Status: Chronic Qualifiers: Atrial fibrillation type: persistent (not longstanding) Qualified Code(s): I48.19 - Other persistent atrial fibrillation; I48.1 - Persistent atrial fibrillation Plan to address problem: Continue therapeutic anticoagulation, continue rate control, continue medical management, supportive care. Outpatient cardiology follow-up. (2) Syncope Current Visit: Yes Status: Acute Qualifiers: Syncope type: vasovagal syncope Qualified Code(s): R55 - Syncope and collapse Plan to address problem: Suspect vasovagal syncope. IV fluid resuscitation therapy, fall precautions, supportive care, discharge planning in a.m. (3) Cocaine dependence Current Visit: Yes Status: Acute Plan to address problem: Patient counseled regarding abstinence. Patient acknowledges understanding instructions. (4) BPH (benign prostatic hyperplasia) Current Visit: Yes Status: Chronic Qualifiers: Lower urinary tract symptom presence: symptoms present Plan to address problem: Continue current care. Outpatient urology follow-up. (5) DVT prophylaxis Current Visit: No Status: Acute Plan to address problem: SCD to bilateral lower extremities while in bed, continue therapeutic anticoagulation (6) Advance care planning Current Visit: Yes Status: Acute Plan to address problem: Disease education done, care plan discussed, diagnoses discussed, prognosis discussed, patient is full code. Patient acknowledges understanding and agreement with care plan, +30 minutes. (7) Preventative health care Current Visit: Yes Status: Acute Plan to address problem: Patient counseled regarding risk factor reduction, abstinence from cocaine, increase oral intake, outpatient follow-up with primary care physician for all age and risk factor appropriate screening test. +30 minutes. History Interval history: 61 YO Male HD#2 with HTN, Atrial Fib, Syncope s/p cocaine ingestion. Patient resting comfortably in bed. Patient denies pain. No reported nursing events. Discharge planning in a.m. If no recurrent symptoms and patient heart rhythm and heart rate remains controlled. Hospitalist Physical - Constitutional Vitals: Temp Pulse Resp BP Pulse Ox 98.7 F 53 L 18 110/57 95 12/10/21 21:06 12/10/21 21:06 12/10/21 21:06 12/10/21 21:06 12/10/21 21:06 General appearance: Present: no acute distress, well-nourished - EENT Eyes: Present: PERRL ENT: hearing intact - Neck Neck: Present: supple - Respiratory Respiratory effort: normal Respiratory: bilateral: CTA - Cardiovascular Rhythm: irregularly irregular - Extremities Extremities: no ischemia Peripheral Pulses: within normal limits - Abdominal General gastrointestinal: soft, non-tender, non-distended - Integumentary Integumentary: Present: clear, dry - Psychiatric Psychiatric: cooperative - Neurologic Neurologic: CNII-XII intact HEART Score - HEART Score EKG: Non-specific Age: 45-65 Risk factors: > 3 risk factors or hx of atherosclerotic disease Troponin: Troponin T < 0.010 ng/mL (0.00-0.029) 12/09/21 11:56 Troponin: < normal limit - Critical Actions Critical Actions: 4-6 pts:12-16.6% risk of adverse cardiac event. Should be admitted Results - Labs CBC & Chem 7: 12/10/21 05:00 12/10/21 05:00 Labs: Laboratory Last Values WBC 2.7 K/mm3 (4.5-11.0) L 12/10/21 05:00 RBC 3.14 M/mm3 (3.65-5.03) L 12/10/21 05:00 Hgb 11.9 gm/dl (11.8-15.2) 12/10/21 05:00 Hct 34.7 % (35.5-45.6) L 12/10/21 05:00 MCV 111 fl (84-94) H 12/10/21 05:00 MCH 38 pg (28-32) H 12/10/21 05:00 MCHC 34 % (32-34) 12/10/21 05:00 RDW 14.8 % (13.2-15.2) 12/10/21 05:00 Plt Count 188 K/mm3 (140-440) 12/10/21 05:00 Lymph % (Auto) 50.2 % (13.4-35.0) H 12/10/21 05:00 [place] % (Auto) 10.7 % (0.0-7.3) H 12/10/21 05:00 Eos % (Auto) 1.8 % (0.0-4.3) 12/10/21 05:00 Baso % (Auto) 1.5 % (0.0-1.8) 12/10/21 05:00 Lymph # (Auto) 1.4 K/mm3 (1.2-5.4) 12/10/21 05:00 [place] # (Auto) 0.3 K/mm3 (0.0-0.8) 12/10/21 05:00 Eos # (Auto) 0.0 K/mm3 (0.0-0.4) 12/10/21 05:00 Baso # (Auto) 0.0 K/mm3 (0.0-0.1) 12/10/21 05:00 Add Manual Diff Complete 12/09/21 11:56 Total Counted 100 12/09/21 11:56 Seg Neutrophils % 35.8 % (40.0-70.0) L 12/10/21 05:00 Seg Neuts % (Manual) 52.0 % (40.0-70.0) 12/09/21 11:56 Band Neutrophils % 0 % 12/09/21 11:56 Lymphocytes % (Manual) 35.0 % (13.4-35.0) 12/09/21 11:56 Reactive Lymphs % (Man) 0 % 12/09/21 11:56 Monocytes % (Manual) 10.0 % (0.0-7.3) H 12/09/21 11:56 Eosinophils % (Manual) 1.0 % (0.0-4.3) 12/09/21 11:56 Basophils % (Manual) 2.0 % (0.0-1.8) H 12/09/21 11:56 Metamyelocytes % 0 % 12/09/21 11:56 Myelocytes % 0 % 12/09/21 11:56 Promyelocytes % 0 % 12/09/21 11:56 Blast Cells % 0 % 12/09/21 11:56 Nucleated RBC % Not Reportable 12/09/21 11:56 Seg Neutrophils # 1.0 K/mm3 (1.8-7.7) L 12/10/21 05:00 Seg Neutrophils # Man 1.0 K/mm3 (1.8-7.7) L 12/09/21 11:56 Band Neutrophils # 0.0 K/mm3 12/09/21 11:56 Lymphocytes # (Manual) 0.7 K/mm3 (1.2-5.4) L 12/09/21 11:56 Abs React Lymphs (Man) 0.0 K/mm3 12/09/21 11:56 Monocytes # (Manual) 0.2 K/mm3 (0.0-0.8) 12/09/21 11:56 Eosinophils # (Manual) 0.0 K/mm3 (0.0-0.4) 12/09/21 11:56 Basophils # (Manual) 0.0 K/mm3 (0.0-0.1) 12/09/21 11:56 Metamyelocytes # 0.0 K/mm3 12/09/21 11:56 Myelocytes # 0.0 K/mm3 12/09/21 11:56 Promyelocytes # 0.0 K/mm3 12/09/21 11:56 Blast Cells # 0.0 K/mm3 12/09/21 11:56 WBC Morphology Not Reportable 12/09/21 11:56 Hypersegmented Neuts Not Reportable 12/09/21 11:56 Hyposegmented Neuts Not Reportable 12/09/21 11:56 Hypogranular Neuts Not Reportable 12/09/21 11:56 Smudge Cells Not Reportable 12/09/21 11:56 Toxic Granulation Not Reportable 12/09/21 11:56 Toxic Vacuolation Not Reportable 12/09/21 11:56 Dohle Bodies Not Reportable 12/09/21 11:56 Pelger-Huet Anomaly Not Reportable 12/09/21 11:56 Jay Rods Not Reportable 12/09/21 11:56 Platelet Estimate Consistent w auto 12/09/21 11:56 Clumped Platelets Not Reportable 12/09/21 11:56 Plt Clumps, EDTA Not Reportable 12/09/21 11:56 Large Platelets Not Reportable 12/09/21 11:56 Giant Platelets Not Reportable 12/09/21 11:56 Platelet Satelliting Not Reportable 12/09/21 11:56 Plt Morphology Comment Not Reportable 12/09/21 11:56 RBC Morphology Not Reportable 12/09/21 11:56 Dimorphic RBCs Not Reportable 12/09/21 11:56 Polychromasia Not Reportable 12/09/21 11:56 Hypochromasia Not Reportable 12/09/21 11:56 Poikilocytosis Not Reportable 12/09/21 11:56 Anisocytosis 1+ 12/09/21 11:56 Microcytosis Not Reportable 12/09/21 11:56 Macrocytosis Not Reportable 12/09/21 11:56 Spherocytes Not Reportable 12/09/21 11:56 Pappenheimer Bodies Not Reportable 12/09/21 11:56 Sickle Cells Not Reportable 12/09/21 11:56 Target Cells Not Reportable 12/09/21 11:56 Tear Drop Cells Not Reportable 12/09/21 11:56 Ovalocytes Not Reportable 12/09/21 11:56 Helmet Cells Not Reportable 12/09/21 11:56 [place]ley Bodies Not Reportable 12/09/21 11:56 Hurley Rings Not Reportable 12/09/21 11:56 Turpin Cells Not Reportable 12/09/21 11:56 Bite Cells Not Reportable 12/09/21 11:56 Crenated Cell Not Reportable 12/09/21 11:56 Elliptocytes Not Reportable 12/09/21 11:56 Acanthocytes (Spur) Not Reportable 12/09/21 11:56 Rouleaux Not Reportable 12/09/21 11:56 Hemoglobin C Crystals Not Reportable 12/09/21 11:56 Schistocytes Not Reportable 12/09/21 11:56 Malaria parasites Not Reportable 12/09/21 11:56 Chidi Bodies Not Reportable 12/09/21 11:56 Hem Pathologist Commnt No 12/09/21 11:56 PT 15.1 Sec. (12.2-14.9) H 12/09/21 11:56 INR 1.07 (0.87-1.13) 12/09/21 11:56 D-Dimer 147.95 ng/mlDDU (0-234) 12/09/21 13:25 Sodium 139 mmol/L (137-145) 12/10/21 05:00 Potassium 3.7 mmol/L (3.6-5.0) 12/10/21 05:00 Chloride 101.9 mmol/L (98-107) 12/10/21 05:00 Carbon Dioxide 29 mmol/L (22-30) 12/10/21 05:00 Anion Gap 12 mmol/L 12/10/21 05:00 BUN 13 mg/dL (9-20) 12/10/21 05:00 Creatinine 0.7 mg/dL (0.8-1.3) L 12/10/21 05:00 Estimated GFR > 60 ml/min 12/10/21 05:00 BUN/Creatinine Ratio 19 % 12/10/21 05:00 Glucose 86 mg/dL (75-100) 12/10/21 05:00 Calcium 8.4 mg/dL (8.4-10.2) 12/10/21 05:00 Magnesium 2.00 mg/dL (1.7-2.3) 12/09/21 11:56 Total Bilirubin 0.60 mg/dL (0.1-1.2) 12/10/21 05:00 AST 11 units/L (5-40) 12/10/21 05:00 ALT 9 units/L (7-56) 12/10/21 05:00 Alkaline Phosphatase 103 units/L (35-129) 12/10/21 05:00 Troponin T < 0.010 ng/mL (0.00-0.029) 12/09/21 11:56 Total Protein 6.1 g/dL (6.3-8.2) L 12/10/21 05:00 Albumin 3.5 g/dL (3.9-5) L 12/10/21 05:00 Albumin/Globulin Ratio 1.3 % 12/10/21 05:00 TSH 1.020 mlU/mL (0.270-4.200) 12/09/21 11:56 Urine Color Straw (Yellow) 12/09/21 12:43 Urine Turbidity Clear (Clear) 12/09/21 12:43 Urine pH 6.5 (5.0-7.0) 12/09/21 12:43 Ur Specific [place] 1.005 (1.003-1.030) 12/09/21 12:43 Urine Protein 30 mg/dl mg/dL (Negative) 12/09/21 12:43 Urine Glucose (UA) Negative mg/dL (Negative) 12/09/21 12:43 Urine Ketones Negative mg/dL (Negative) 12/09/21 12:43 Urine Blood Negative (Negative) 12/09/21 12:43 Urine Nitrite Negative (Negative) 12/09/21 12:43 Ur Reducing Substances Not Reportable 12/09/21 12:43 Urine Bilirubin Negative (Negative) 12/09/21 12:43 Urine Ictotest Not Reportable 12/09/21 12:43 Urine Urobilinogen < 2.0 mg/dL (<2.0) 12/09/21 12:43 Ur Leukocyte Esterase Negative (Negative) 12/09/21 12:43 Urine WBC (Auto) < 1.0 /HPF (0.0-6.0) 12/09/21 12:43 Urine RBC (Auto) 1.0 /HPF (0.0-6.0) 12/09/21 12:43 U Epithel Cells (Auto) < 1.0 /HPF (0-13.0) 12/09/21 12:43 Urine Mucus Few /HPF 12/09/21 12:43 Salicylates < 0.3 mg/dL (2.8-20.0) L 12/09/21 11:56 Urine Opiates Screen Presumptive negative 12/09/21 12:43 Urine Methadone Screen Presumptive negative 12/09/21 12:43 Acetaminophen 5.0 ug/mL (10.0-30.0) L 12/09/21 11:56 Ur Barbiturates Screen Presumptive negative 12/09/21 12:43 Ur Phencyclidine Scrn Presumptive negative 12/09/21 12:43 Ur Amphetamines Screen Presumptive negative 12/09/21 12:43 U Benzodiazepines Scrn Presumptive negative 12/09/21 12:43 Urine Cocaine Screen Presumptive positive 12/09/21 12:43 U Marijuana (THC) Screen Presumptive negative 12/09/21 12:43 Drugs of Abuse Note Disclamer 12/09/21 12:43 Jamil/IV: Voiding Method Condom Catheter Active Medications - Current Medications Current Medications: Generic Name Dose Route Start Last Admin Trade Name Freq PRN Reason Stop Dose Admin Acetaminophen 650 mg 12/09/21 23:59 Acetaminophen 325 Mg Tab PO Q4H PRN Pain MILD(1-3)/Fever >100.5/ELDER Sodium Chloride 1,000 mls @ 75 mls/hr 12/09/21 23:45 Nacl 0.9% 1000 Ml IV DIRECT JESSA Metoclopramide HCl 10 mg 12/09/21 23:59 Metoclopramide 10 Mg/2 Ml Inj IV Q6H PRN Nausea And Vomiting Morphine Sulfate 2 mg 12/09/21 23:59 Morphine 2 Mg/1 Ml Inj IV Q4H PRN Pain, Moderate (4-6) Ondansetron HCl 4 mg 12/09/21 23:59 Ondansetron 4 Mg/2 Ml Inj IV Q8H PRN Nausea And Vomiting Oxycodone/Acetaminophen 1 tab 12/09/21 23:59 Oxycodone /Acetaminophen 5-325mg Tab PO Q6H PRN Pain, Moderate (4-6) Sodium Chloride 10 ml 12/10/21 10:00 12/10/21 09:00 Sodium Chloride 0.9% 10 Ml Flush Syringe IV 10 ml BID JESSA Administration Sodium Chloride 10 ml 12/09/21 23:59 Sodium Chloride 0.9% 10 Ml Flush Syringe IV PRN PRN LINE FLUSH
[2021-12-11 08:05] VITALS: BP 118/67
--- NOTE | 2021-12-11 11:00 | Discharge Summary ---
Providers - Providers Date of Admission: 12/09/21 18:27 Attending physician: LISET BREEN Primary care physician: SECURITY COMPLIANCE SPECIALIST Hospitalization Condition: Good Hospital course: 61-year-old -[place] male with history of arrhythmias, BPH, hypertension,and COPD brought in by EMS for passing out at home. 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 Patient is not a good historian. He apparently passed out while doing some work regained consciousness in a few seconds. No chest pain. No palpitations. No fever or chills. No exacerbating or relieving factors. Patient admitted to telemetry and treated with supportive care, rate control and resumption of therapeutic anticoagulation. Patient symptoms suspected secondary to vasovagal syncope status post cocaine ingestion. Patient treated with IV fluid resuscitation therapy. Patient medically optimized and back to usual state of health. Patient seen and evaluated prior to discharge and found to have no significant physical exam findings. Patient discharged home instructed follow-up primary care physician within 3 to 5 days and to follow-up with cardiology as instructed. 35 minutes dedicated to patient discharge and coordination of care. Disposition: 01 HOME / SELF CARE / HOMELESS Final Discharge Diagnosis (Prints w/discharge instructions): Syncope, cocaine dependence Time spent for discharge: 35 minutes Core Measure Documentation - Palliative Care Palliative Care/ Comfort Measures: Not Applicable - Core Measures Any of the following diagnoses?: none Exam - Constitutional Vitals: Temp Pulse Resp BP Pulse Ox 97.6 F 47 L 18 118/67 98 12/11/21 07:52 12/11/21 10:41 12/11/21 10:41 12/11/21 07:52 12/11/21 10:41 General appearance: Present: cachectic - EENT Eyes: Present: PERRL ENT: hearing intact, clear oral mucosa - Neck Neck: Present: supple, normal ROM - Respiratory Respiratory effort: normal Respiratory: bilateral: CTA - Cardiovascular Rhythm: irregularly irregular Heart Sounds: Present: S1 & S2. Absent: rub, click - Extremities Extremities: pulses symmetrical, No edema Peripheral Pulses: within normal limits - Abdominal General gastrointestinal: Present: soft, non-tender, non-distended, normal bowel sounds Male genitourinary: Present: normal - Integumentary Integumentary: Present: clear, warm, dry - Musculoskeletal Musculoskeletal: gait normal, strength equal bilaterally - Psychiatric Psychiatric: appropriate mood/affect, intact judgment & insight - Neurologic Neurologic: CNII-XII intact, moves all extremities Plan Activity: no restrictions Diet: regular Follow up with: PRIMARY CARE, [Primary Care Provider] - 3-5 Days
--- NOTE | 2021-12-11 14:47 | Vascular Lab Report ---
DUPLEX DOPPLER ULTRASOUND CAROTID, BILATERAL INDICATION / CLINICAL INFORMATION: syncope. COMPARISON: None available. FINDINGS: RIGHT CAROTID: - PLAQUE ESTIMATE (%): There is generalized intimal thickening without significant atherosclerotic pl aque. - CCA velocity: 119 cm/sec. - ICA peak systolic velocity: 91 cm/sec. - ICA/CCA PSV Ratio: 0.8 Right Vertebral Artery: Antegrade flow. LEFT CAROTID: - PLAQUE ESTIMATE: There is generalized intimal thickening without significant atherosclerotic plaque . - CCA velocity: 118 cm/sec. - ICA peak systolic velocity: 80 cm/sec. - ICA/CCA PSV Ratio: 0.7 Left Vertebral Artery: Antegrade flow. IMPRESSION: 1. Right Internal Carotid Artery: Less than 50% diameter stenosis. 2. Left Internal Carotid Artery: Less than 50% diameter stenosis. Velocity criteria are extrapolated from diameter data as defined by the Society of Radiologists in Ul trasound Consensus Conference, Radiology 2003; 229;340-346. NO STENOSIS (NORMAL) * Plaque = none; ICA PSV < 125 cm/sec; ICA/CCA PSV Ratio < 2.0 <50% STENOSIS * Plaque < 50%; ICA PSV < 125 cm/sec; ICA/CCA PSV Ratio < 2.0 50-69% STENOSIS * Plaque > 50%; ICA PSV = 125-230 cm/sec; ICA/CCA PSV Ratio = 2.0-4.0 >70% BUT <100% STENOSIS * Plaque > 50%; ICA PSV > 230 cm/sec; ICA/CCA PSV Ratio > 4.0 NEAR OCCLUSION * Plaque = visible lumen; ICA PSV = high/low/none; ICA/CCA PSV Ratio = variable TOTAL OCCLUSION * Plaque = no lumen; ICA PSV = none; ICA/CCA PSV Ratio = N/A Signer Name: Renato Rodriguez MD Signed: 12/11/2021 2:43 PM Workstation Name: [id number]
--- NOTE | 2021-12-13 08:02 | Cat Scan Report ---
CTA HEAD AND NECK WITH CONTRAST HISTORY: Syncope COMPARISON: Head CT done earlier today TECHNIQUE: All CT scans at this location are performed using CT dose reduction for ALARA by means of automated exposure control.. 3-D/MIP reformats postprocessed. Percentage stenosis is determined by d irect quantitative measurements of diseased internal carotid artery diameter compared with normal dis dick internal carotid artery reference segments or by criteria similar to NASCET where applicable. CONTRAST: 100 ml of Omnipaque 350 FINDINGS: CT HEAD: BRAIN / INTRACRANIAL CONTENTS: No acute hemorrhage, mass effect, midline shift, or hydrocephalus. No appreciable acute large territorial or lacunar infarct. Stable small chronic infarct in the right pos terior temporal lobe. ORBITS: No significant abnormality of visualized orbits. SINUSES / MASTOIDS: No significant abnormality of visualized sinuses and mastoid air cells. CTA HEAD: Intracranial vertebral arteries: No significant abnormality. Basilar artery: No significant abnormality. Posterior cerebral arteries: Developmental developmental origin of the left posterior cerebral artery. Intracranial internal carotid arteries: No significant abnormality. Anterior cerebral arteries: No significant abnormality. Middle cerebral arteries: No significant abnormality. Dural venous sinuses:Not optimally opacified. No significant abnormality. CTA NECK: Aortic arch: No significant abnormality. Cervical vertebral arteries: No significant abnormality. Common carotid arteries: No significant abnormality. Cervical internal carotid arteries: No significant abnormality. Additional findings: Tiny thyroid nodules measuring less than 1 cm that do not require dedicated foll ow-up. IMPRESSION: 1. No large vessel occlusion or significant stenosis in the neck or intracranial arteries. Signer Name: Kb Gage MD Signed: 12/13/2021 7:57 AM Workstation Name: [id number]
== END 2021-12-11 16:24 | disposition home or self-care (01) ==
LOC: ED 11:00 → 4A 18:27
PROVIDERS: ADMIT Internal Medicine; ATTEND Internal Medicine
DX: R55 Syncope and collapse (principal); R07.89 Other chest pain; F14.20 Cocaine dependence, uncomplicated; I48.91 Unspecified atrial fibrillation; R41.82 Altered mental status, unspecified; J44.9 Chronic obstructive pulmonary disease, unspecified; I11.0 Hypertensive heart disease with heart failure; I50.9 Heart failure, unspecified; N40.0 Benign prostatic hyperplasia without lower urinary tract symptoms; Z86.73 Personal history of transient ischemic attack (TIA), and cerebral infarction without residual deficits; Z86.711 Personal history of pulmonary embolism; Z79.899 Other long term (current) drug therapy
CPT/HCPCS: 36415; 70450; 70496; 70498; 71275; 80053; 80307; 81001; 82271; 83735; 84443; 84484; 85007; 85025; 85379; 85610; 93005; 93880; 96374; 96375; 96376; 99291; C8929; C9113; G0378; J0461; J0610; J2765; J7030; J7120; Q9967; 80320; 93306; G0480